=== PATIENT | female | born 1930 | race Caucasian/White ===

== ENCOUNTER → 2017-11-01 | Outpatient (CLI) | payer MEDICARE | END | disposition home or self-care (01) | LOC: KCIC MRI 10:01 | DX: S83.242A Other tear of medial meniscus, current injury, left knee, initial encounter (principal); M17.12 Unilateral primary osteoarthritis, left knee; M94.262 Chondromalacia, left knee; X58.XXXA Exposure to other specified factors, initial encounter; Y93.89 Activity, other specified; Y92.89 Other specified places as the place of occurrence of the external cause; Y99.8 Other external cause status | CPT/HCPCS: 73721 ==

== ENCOUNTER 2018-01-18 20:56 | Inpatient (IN) | payer MEDICARE ==
[2018-01-18 21:34] LABS: ADD MAN DIFF? NO
[2018-01-18 21:36] LABS: BASO # 0.1 x10^3/uL (0.0-0.2); BASO % 1 % (0-3); EOS # 0.1 x10^3/uL (0.0-0.7); EOS % 1 % (0-3); HEMATOCRIT 33.1 % (36.0-47.0); LYMPH # 0.9 x10^3/uL (1.0-4.8); LYMPH % 9 % (24-48); MEAN CORPUSCULAR HEMOGLOBIN 31 pg (25-35); MEAN CORPUSCULAR HGB CONC 33 g/dL (31-37); MEAN CORPUSCULAR VOLUME 93 fL (79-100); MONO # 0.8 x10^3/uL (0.0-1.1); MONO % 8 % (0-9); NEUT # 8.5 x10^3uL (1.8-7.7); NEUT % 82 % (31-73); PLATELET COUNT 218 x10^3/uL (140-400); RED BLOOD COUNT 3.55 x10^6/uL (3.50-5.40); RED CELL DISTRIBUTION WIDTH 12.9 % (11.5-14.5); WHITE BLOOD COUNT 10.3 x10^3/uL (4.0-11.0)
[2018-01-18 21:51] LABS: BILIRUBIN,URINE NEGATIVE (NEG); CLARITY,URINE CLEAR; COLOR,URINE YELLOW; GLUCOSE,URINE NEGATIVE (NEG); NITRITE,URINE NEGATIVE (NEG); PROTEIN,URINE NEGATIVE (NEG-TRACE); UROBILINOGEN,URINE 0.2 mg/dL (0.2 mg/dL)
[2018-01-18 22:03] LABS: BACTERIA,URINE 0 /HPF (0-FEW); HYALINE CASTS, URINE MODERATE /HPF; RBC,URINE OCC /HPF (0-2); SQUAMOUS EPITHELIAL CELL,UR FEW /LPF; WBC,URINE OCC /HPF (0-4)
[2018-01-18 22:27] LABS: ANION GAP 11 (6-14); BLOOD UREA NITROGEN 23 mg/dL (7-20); BUN/CREATININE RATIO 29 (6-20); CALCIUM 9.3 mg/dL (8.5-10.1); CARBON DIOXIDE 26 mmol/L (21-32); CHLORIDE 97 mmol/L (98-107); CREATININE 0.8 mg/dL (0.6-1.0); GLUCOSE 115 mg/dL (70-99); POTASSIUM 3.9 mmol/L (3.5-5.1); SODIUM 134 mmol/L (136-145)
[2018-01-18 22:30] LABS: ALBUMIN 3.6 g/dL (3.4-5.0); ALBUMIN/GLOBULIN RATIO 1.3 (1.0-1.7); ALK PHOS 58 U/L (46-116); ALT (SGPT) 25 U/L (14-59); AST (SGOT) 30 U/L (15-37); CREATINE KINASE 114 U/L (26-192); TOTAL BILIRUBIN 0.3 mg/dL (0.2-1.0); TOTAL PROTEIN 6.4 g/dL (6.4-8.2)
[2018-01-18] MEDS: LIDOCAINE 1% PF 30 ML VIAL. INJ (22:30)
[2018-01-18] MEDS ORDERED: LIDOCAINE 1% Multi-Dose 20 ML VIAL. INJ (22:30)
[2018-01-19] MEDS ORDERED: fentaNYL PF VIAL 100 MCG/2 ML VIAL IV (00:15)
[2018-01-19] MEDS ORDERED: ONDANSETRON PF 4 MG/2 ML VIAL. IV (00:15)
[2018-01-19] MEDS: ASPIRIN CHEWABLE 81 MG TABLET. PO (00:48)
[2018-01-19 06:46] LABS: TROPONINI 0.088 ng/mL (0.000-0.055)
[2018-01-19 09:07] LABS: ANION GAP 10 (6-14); BLOOD UREA NITROGEN 15 mg/dL (7-20); CALCIUM 8.8 mg/dL (8.5-10.1); CARBON DIOXIDE 26 mmol/L (21-32); CHLORIDE 103 mmol/L (98-107); CHOLESTEROL 140 mg/dL (0-200); CREATININE 0.5 mg/dL (0.6-1.0); GLUCOSE 86 mg/dL (70-99); HDLC 57 mg/dL (40-60); LDLC 75 mg/dL (0-100); MAGNESIUM 2.2 mg/dL (1.8-2.4); NON-HDL CHOLESTEROL 83 mg/dL (0-129); POTASSIUM 3.9 mmol/L (3.5-5.1); SODIUM 139 mmol/L (136-145); TRIGLYCERIDES 39 mg/dL (0-150); VLDLC 8 mg/dL (0-40)
[2018-01-19 09:11] LABS: CHOLESTEROL/HDL RATIO 2.5
[2018-01-19 09:15] LABS: THYROID STIM HORMONE (TSH) 1.242 uIU/mL (0.358-3.74)
[2018-01-19] MEDS: LEVOTHYROXINE 75 MCG TABLET PO (12:00)
[2018-01-19] MEDS: CALCIUM CARB/VIT D3 500/200 TABLET. PO (21:00)
[2018-01-20 03:32] LABS: ADD MAN DIFF? NO
[2018-01-20 04:22] LABS: BASO # 0.1 x10^3/uL (0.0-0.2); BASO % 1 % (0-3); EOS # 0.1 x10^3/uL (0.0-0.7); EOS % 2 % (0-3); LYMPH # 1.8 x10^3/uL (1.0-4.8); LYMPH % 32 % (24-48); MEAN CORPUSCULAR HEMOGLOBIN 31 pg (25-35); MEAN CORPUSCULAR HGB CONC 34 g/dL (31-37); MEAN CORPUSCULAR VOLUME 93 fL (79-100); MONO # 0.7 x10^3/uL (0.0-1.1); MONO % 12 % (0-9); NEUT % 54 % (31-73); PLATELET COUNT 197 x10^3/uL (140-400); RED BLOOD COUNT 3.22 x10^6/uL (3.50-5.40); RED CELL DISTRIBUTION WIDTH 13.1 % (11.5-14.5); WHITE BLOOD COUNT 5.6 x10^3/uL (4.0-11.0)
[2018-01-20 04:44] LABS: ANION GAP 8 (6-14); BLOOD UREA NITROGEN 19 mg/dL (7-20); CALCIUM 8.5 mg/dL (8.5-10.1); CARBON DIOXIDE 26 mmol/L (21-32); CHLORIDE 107 mmol/L (98-107); CREATININE 0.6 mg/dL (0.6-1.0); GFR 94.8; GLUCOSE 85 mg/dL (70-99); POTASSIUM 4.3 mmol/L (3.5-5.1); SODIUM 141 mmol/L (136-145)
[2018-01-20] MEDS: ACETAMINOPHEN 325 MG TABLET. PO ×2 (08:46→10:45)
[2018-01-20] MEDS: CALCIUM CARB/VIT D3 500/200 TABLET. PO ×2 (10:55→20:16)
[2018-01-20] MEDS: LEVOTHYROXINE 75 MCG TABLET PO (10:55)
[2018-01-21 04:40] LABS: ADD MAN DIFF? NO
[2018-01-21 05:35] LABS: BASO % 1 % (0-3); EOS # 0.2 x10^3/uL (0.0-0.7); EOS % 3 % (0-3); HEMATOCRIT 31.2 % (36.0-47.0); HEMOGLOBIN 10.3 g/dL (12.0-15.5); LYMPH # 1.4 x10^3/uL (1.0-4.8); LYMPH % 28 % (24-48); MEAN CORPUSCULAR HEMOGLOBIN 31 pg (25-35); MEAN CORPUSCULAR HGB CONC 33 g/dL (31-37); MEAN CORPUSCULAR VOLUME 94 fL (79-100); MONO # 0.6 x10^3/uL (0.0-1.1); MONO % 11 % (0-9); NEUT # 2.9 x10^3uL (1.8-7.7); NEUT % 57 % (31-73); PLATELET COUNT 195 x10^3/uL (140-400); RED BLOOD COUNT 3.33 x10^6/uL (3.50-5.40); WHITE BLOOD COUNT 5.1 x10^3/uL (4.0-11.0)
[2018-01-21 05:59] LABS: ANION GAP 7 (6-14); BLOOD UREA NITROGEN 18 mg/dL (7-20); CALCIUM 9.1 mg/dL (8.5-10.1); CARBON DIOXIDE 27 mmol/L (21-32); CHLORIDE 105 mmol/L (98-107); CREATININE 0.6 mg/dL (0.6-1.0); GFR 94.8; GLUCOSE 83 mg/dL (70-99); POTASSIUM 3.6 mmol/L (3.5-5.1); SODIUM 139 mmol/L (136-145)
[2018-01-21] MEDS: CALCIUM CARB/VIT D3 500/200 TABLET. PO ×2 (08:57→21:09)
[2018-01-21] MEDS: LEVOTHYROXINE 75 MCG TABLET PO (08:57)
[2018-01-21] MEDS: ACETAMINOPHEN 325 MG TABLET. PO ×2 (08:57→11:30)
[2018-01-22] MEDS: LEVOTHYROXINE 75 MCG TABLET PO (08:02)
[2018-01-22] MEDS: CALCIUM CARB/VIT D3 500/200 TABLET. PO (08:02)
[2018-01-22] MEDS: ACETAMINOPHEN 325 MG TABLET. PO (08:02)
[2018-01-22] MEDS: POTASSIUM CHLORIDE 20 MEQ TABLET.ER. PO (10:03)
== END 2018-01-22 10:40 | DRG 158 ==
LOC: 2 NORTH 01-19 00:16 → ER 20:56
PROC: 0CQ0XZZ Repair Upper Lip, External Approach (ICD-10-PCS; principal; 2018-01-19)
DX: S01.511A Laceration without foreign body of lip, initial encounter (principal); Z68.1 Body mass index [BMI] 19.9 or less, adult; M06.9 Rheumatoid arthritis, unspecified; C44.91 Basal cell carcinoma of skin, unspecified; S09.93XA Unspecified injury of face, initial encounter; W01.0XXA Fall on same level from slipping, tripping and stumbling without subsequent striking against object, initial encounter; E03.9 Hypothyroidism, unspecified; M81.0 Age-related osteoporosis without current pathological fracture; R63.6 Underweight; Z82.49 Family history of ischemic heart disease and other diseases of the circulatory system; Z85.828 Personal history of other malignant neoplasm of skin; M19.90 Unspecified osteoarthritis, unspecified site; Z88.0 Allergy status to penicillin; Z88.8 Allergy status to other drugs, medicaments and biological substances; Z91.041 Radiographic dye allergy status; Z60.2 Problems related to living alone; Y93.9 Activity, unspecified; Y92.89 Other specified places as the place of occurrence of the external cause; Y99.8 Other external cause status
CPT/HCPCS: 12011; 36415; 51702; 70450; 70486; 72125; 73030; 80048; 80053; 80061; 81001; 82550; 83735; 84443; 84484; 85025; 93005; 93306; 97116-GP; 97161-GP; 97166-GO; 97530-GO; 97530-GP; 97535-GO; 99285-25

== ENCOUNTER 2020-01-10 22:26 | Inpatient (IN) | payer MEDICARE ==
[~2020-01-10] VITALS: Ht 149.9 cm; Wt 43.5 kg
[~2020-01-10 22:26] MED LIST: ACET325T9 PO; ACET500T68 PO; CALC-95 PO; FOLI0.8T3 PO; GUAR1PAC2 PO; LEVO75TA PO; PRED20TA PO; PSYL0.5215 PO
[2020-01-10] MEDS ORDERED: IV NORMAL SALINE 500ML BAG 500 ML IV ONE (23:15)
[2020-01-10 23:54] LABS: BASO # 0.1 x10^3/uL (0.0-0.2); BASO % 0 % (0-3); EOS % 0 % (0-3); LYMPH # 0.8 x10^3/uL (1.0-4.8); LYMPH % 5 % (24-48); MEAN CORPUSCULAR HEMOGLOBIN 31 pg (25-35); MEAN CORPUSCULAR HGB CONC 33 g/dL (31-37); MEAN CORPUSCULAR VOLUME 92 fL (79-100); MONO # 1.5 x10^3/uL (0.0-1.1); MONO % 9 % (0-9); NEUT # 13.8 x10^3/uL (1.8-7.7); NEUT % 86 % (31-73); PLATELET COUNT 337 x10^3/uL (140-400); RED CELL DISTRIBUTION WIDTH 12.6 % (11.5-14.5); WHITE BLOOD COUNT 16.1 x10^3/uL (4.0-11.0)
[2020-01-11 00:07] LABS: CALCIUM 11.2 mg/dL (8.5-10.1); CREATININE 0.8 mg/dL (0.6-1.0); GFR 67.7; POTASSIUM 4.2 mmol/L (3.5-5.1)
[2020-01-11 00:13] LABS: ALBUMIN 3.6 g/dL (3.4-5.0); ALBUMIN/GLOBULIN RATIO 0.9 (1.0-1.7); MAGNESIUM 2.7 mg/dL (1.8-2.4); TOTAL BILIRUBIN 0.5 mg/dL (0.2-1.0); TOTAL PROTEIN 7.7 g/dL (6.4-8.2)
[2020-01-11 00:27] LABS: % BANDS 7 % (0-9); % LYMPHS 3 % (24-48); % MONOS 10 % (0-10); % SEGS 80 % (35-66); PLT ESTIMATE ADEQUATE (ADEQUATE); TOXIC VACUOLATION SLIGHT
--- NOTE | 2020-01-11 00:31 | RAD ---
CT abdomen and pelvis without contrast: Reason for examination: Low abdominal pain and diarrhea. Helical images were obtained through the abdomen and pelvis with no intravenous or oral contrast administered. Reconstruction was performed in sagittal and coronal planes. Exposure: One or more of the following individualized dose reduction techniques were utilized for this examination: 1. Automated exposure control 2. Adjustment of the mA and/or kV according to patient size 3. Use of iterative reconstruction technique. The lung bases show some infiltrates or atelectasis posteriorly in the costophrenic angles. There are small bilateral pleural effusions. The heart size is normal with no pericardial effusion. No abnormality seen at the liver, gallbladder, spleen, adrenal glands or pancreas. There is a small hiatal hernia. The stomach shows no abnormal wall thickening or obstruction. The colon shows presence of diverticulosis without diverticulitis. There is a large amount of fecal material in the colon. The appendix is not identified. The small intestinal tract shows no abnormal dilatation or evidence of obstruction. The kidneys show no renal masses, renal calculi, hydronephrosis or evidence of obstructive uropathy. No abnormality seen at the bladder or vaginal cuff. No free fluid or free air seen in the abdomen or pelvis. There are severe degenerative changes in the thoracolumbar spine with a grade 1 anterolisthesis of L5 on S1. There also appears to be a mild compression deformity at the T11 vertebral body. IMPRESSION: Bibasal infiltrates or atelectasis posteriorly at the costophrenic angles bilaterally. Small bilateral pleural effusions. Small hiatal hernia. Diverticulosis without evidence of diverticulitis. Large amount of fecal material in the colon. Severe degenerative spondylosis with a grade 1 anterolisthesis of L5 on S1. Mild compression deformity at the T11 vertebral body. Electronically signed by: Jemma Oliver MD (01/11/2020 12:28 AM) [facility]
[2020-01-11] MEDS ORDERED: CEFEPIME HCL IV Push 2 GM VIAL. IVP ONE (01:15)
--- NOTE | 2020-01-11 01:39 | PHYS DOC ---
Past Medical History Past Medical History: Hypothyroid, Other Additional Past Medical Histor: osteoporosis, basal cell carcinoma, Past Surgical History: , Other Additional Past Surgical Histo: skin cancer removal, fluid drainage from ear Smoking Status: Never Smoker Alcohol Use: None Drug Use: None Adult General Chief Complaint Chief Complaint: DIARRHEA HPI HPI Patient is a 89 year old female, accompanied by her son and daughter, who presents to the emergency department with complaints of diarrhea that began this evening. Patient son reports that patient has had at least 9 episodes of foul smelling liquid stool today. Patient's daughter reports that the patient had a history of a C. difficile infection about 10 years ago. Patient's daughter states that her mother was seen at her primary care doctor's office 10 days ago for a sudden onset of urinary incontinence and confusion. She was diagnosed with a urinary tract infection and was prescribed Macrobid for that infection. Patient finished taking the medication yesterday. Patient's daughter says that ever since the onset of the incontinence her mother has not been acting right. Patient's daughter states that her mother lives at home in an apartment by herself, she denies any recent contact with any ill persons, or recent travel. 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 The patient denied any complaints of pain on arrival, however her lower abdomen was tender to touch. Review of Systems Review of Systems Constitutional: Denies fever or chills [] Eyes: Denies redness, or eye pain [] HENT: Denies nasal congestion or sore throat [] Respiratory: Denies cough or shortness of breath [] Cardiovascular: No additional information not addressed in HPI [] GI: Denies nausea, vomiting, or bloody stools; see HPI : Denies hematuria; see HPI Musculoskeletal: Denies back pain or joint pain [] Integument: Denies rash or skin lesions [] Neurologic: Denies headache, reports generalized weakness Complete systems were reviewed and found to be within normal limits, except as documented in this note. Current Medications Current Medications Current Medications Medications (Trade) Dose Ordered Sig/Fam Start Time Stop Time Status Last Admin Dose Admin Cefepime HCl (Maxipime) 2 gm 1X ONCE 01/11/20 01:15 01/11/20 01:16 DC Levofloxacin/ Dextrose 150 ml @ 100 mls/hr 1X ONCE 01/11/20 01:00 01/11/20 02:29 Sodium Chloride 500 ml @ 500 mls/hr 1X ONCE 01/10/20 23:15 01/11/20 00:14 DC 01/11/20 00:11 500 MLS/HR Allergies Allergies Allergies Coded Allergies Type Severity Reaction Last Updated Verified Iodinated Contrast Media Allergy Intermediate 06/01/14 Yes Penicillins Allergy Intermediate 06/01/14 Yes codeine Allergy Intermediate 06/01/14 Yes iodine Allergy Intermediate 06/01/14 Yes Physical Exam Physical Exam Constitutional: Well developed, well nourished, no acute distress, frail appearance, hard of hearing HENT: Normocephalic, atraumatic, bilateral external ears normal, oropharynx dry, no oral exudates, nose normal. [] Eyes: PERRLA, EOMI, conjunctiva normal, no discharge. [] Neck: Normal range of motion, no stridor. [] Cardiovascular:Heart rate regular rhythm, no murmur [] Lungs & Thorax: Bilateral breath sounds clear to auscultation in upper lobes, diminished bilateral lower lobes, no retractions, no wheezing [] Abdomen: Bowel sounds normal, soft, LLQ and RLQ TTP, no rebound tenderness, no masses, no pulsatile masses. [] Skin: Warm, dry, no erythema, no rash. [] Extremities: No cyanosis, ROM intact, no edema. [] Neurologic: Alert and oriented X 2, no focal deficits noted. [] Psychologic: Affect normal, judgement normal, mood normal. [] Current Patient Data Vital Signs Vital Signs Date Time Temp Pulse Resp B/P (MAP) Pulse Ox O2 Delivery O2 Flow Rate FiO2 01/11/20 00:00 95 20 153/71 (98) Room Air 01/10/20 22:40 98.3 96 98.3 Lab Values Laboratory Tests Test 01/10/20 23:40 White Blood Count 16.1 x10^3/uL (4.0-11.0) H Red Blood Count 3.90 x10^6/uL (3.50-5.40) Hemoglobin 12.0 g/dL (12.0-15.5) Hematocrit 36.0 % (36.0-47.0) Mean Corpuscular Volume 92 fL (79-100) Mean Corpuscular Hemoglobin 31 pg (25-35) Mean Corpuscular Hemoglobin Concent 33 g/dL (31-37) Red Cell Distribution Width 12.6 % (11.5-14.5) Platelet Count 337 x10^3/uL (140-400) Neutrophils (%) (Auto) 86 % (31-73) H Lymphocytes (%) (Auto) 5 % (24-48) L Monocytes (%) (Auto) 9 % (0-9) Eosinophils (%) (Auto) 0 % (0-3) Basophils (%) (Auto) 0 % (0-3) Neutrophils # (Auto) 13.8 x10^3/uL (1.8-7.7) H Lymphocytes # (Auto) 0.8 x10^3/uL (1.0-4.8) L Monocytes # (Auto) 1.5 x10^3/uL (0.0-1.1) H Eosinophils # (Auto) 0.0 x10^3/uL (0.0-0.7) Basophils # (Auto) 0.1 x10^3/uL (0.0-0.2) Segmented Neutrophils % 80 % (35-66) H Band Neutrophils % 7 % (0-9) Lymphocytes % 3 % (24-48) L Monocytes % 10 % (0-10) Toxic Vacuolation Slight Platelet Estimate Adequate (ADEQUATE) Sodium Level 136 mmol/L (136-145) Potassium Level 4.2 mmol/L (3.5-5.1) Chloride Level 97 mmol/L (98-107) L Carbon Dioxide Level 27 mmol/L (21-32) Anion Gap 12 (6-14) Blood Urea Nitrogen 29 mg/dL (7-20) H Creatinine 0.8 mg/dL (0.6-1.0) Estimated GFR (Cockcroft-Gault) 67.7 BUN/Creatinine Ratio 36 (6-20) H Glucose Level 131 mg/dL (70-99) H Lactic Acid Level 1.5 mmol/L (0.4-2.0) Calcium Level 11.2 mg/dL (8.5-10.1) H Magnesium Level 2.7 mg/dL (1.8-2.4) H Total Bilirubin 0.5 mg/dL (0.2-1.0) Aspartate Amino Transferase (AST) 35 U/L (15-37) Alanine Aminotransferase (ALT) 30 U/L (14-59) Alkaline Phosphatase 82 U/L (46-116) Total Protein 7.7 g/dL (6.4-8.2) Albumin 3.6 g/dL (3.4-5.0) Albumin/Globulin Ratio 0.9 (1.0-1.7) L Lipase 57 U/L (73-393) L Laboratory Tests 01/10/20 23:40 Laboratory Tests 01/10/20 23:40 EKG EKG [] Radiology/Procedures Radiology/Procedures PROCEDURE: CT ABDOMEN PELVIS WO CONTRAST CT abdomen and pelvis without contrast: Reason for examination: Low abdominal pain and diarrhea. Helical images were obtained through the abdomen and pelvis with no intravenous or oral contrast administered. Reconstruction was performed in sagittal and coronal planes. Exposure: One or more of the following individualized dose reduction techniques were utilized for this examination: 1. Automated exposure control 2. Adjustment of the mA and/or kV according to patient size 3. Use of iterative reconstruction technique. The lung bases show some infiltrates or atelectasis posteriorly in the costophrenic angles. There are small bilateral pleural effusions. The heart size is normal with no pericardial effusion. No abnormality seen at the liver, gallbladder, spleen, adrenal glands or pancreas. There is a small hiatal hernia. The stomach shows no abnormal wall thickening or obstruction. The colon shows presence of diverticulosis without diverticulitis. There is a large amount of fecal material in the colon. The appendix is not identified. The small intestinal tract shows no abnormal dilatation or evidence of obstruction. The kidneys show no renal masses, renal calculi, hydronephrosis or evidence of obstructive uropathy. No abnormality seen at the bladder or vaginal cuff. No free fluid or free air seen in the abdomen or pelvis. There are severe degenerative changes in the thoracolumbar spine with a grade 1 anterolisthesis of L5 on S1. There also appears to be a mild compression deformity at the T11 vertebral body. IMPRESSION: Bibasal infiltrates or atelectasis posteriorly at the costophrenic angles bilaterally. Small bilateral pleural effusions. Small hiatal hernia. Diverticulosis without evidence of diverticulitis. Large amount of fecal material in the colon. Severe degenerative spondylosis with a grade 1 anterolisthesis of L5 on S1. Mild compression deformity at the T11 vertebral body. [] Course & Med Decision Making Course & Med Decision Making Pertinent Labs and Imaging studies reviewed. (See chart for details) Patient is a 89-year-old female who presented to the emergency room with acute onset of diarrhea and ongoing confusion and urinary incontinence that began 10 days ago. Her CBC revealed a white blood cell count of 16.1 with 7 bands and 80 segs; CMP revealed a chloride of 97, BUN of 29, glucose of 131, lactic acid of 1.5, calcium of 11.2, magnesium of 2.7, lipase was 57 otherwise unremarkable, urine and stool are pending CT abdomen pelvis revealed bibasilar infiltrates or atelectasis at the costophrenic angles with small bilateral pleural effusions and a large amount of fecal material in the colon. Will treat patient for pneumonia with 750 mg of Levaquin IV and 2 g of cefepime IV. Patient was given a 500 bolus of normal saline in the emergency department on arrival. 0120 Patient to be admitted to the hospitalist service for diarrhea and bilateral CAP, Dr. Castellanos notified of admission will inform Dr. Calhoun in the morning. Patient's vital signs stable. Patient remains afebrile, appears nontoxic, respirations even and unlabored. Patient will be admitted to the med/tele floor. Patient's case and plan of care also discussed with Dr. Castellanos [] Hayden Disclaimer Hayden Disclaimer This electronic medical record was generated, in whole or in part, using a voice recognition dictation system. Departure Departure Impression: Primary Impression: Diarrhea Additional Impression: CAP (community acquired pneumonia) Disposition: 09 ADMITTED INPATIENT Admitting Physician: AURORA (Unique) Condition: STABLE Referrals: LUIS CARLOS CARLIN APRN (PCP) Problem Qualifiers Primary Impression: Diarrhea Diarrhea type: presumed infectious Qualified Codes: R19.7 - Diarrhea, unspecified Additional Impression: CAP (community acquired pneumonia) Laterality: unspecified laterality Qualified Codes: J18.9 - Pneumonia, unspecified organism YAZ FLORES APRN Jan 11, 2020 01:39
[2020-01-11] MEDS ORDERED: IV NORMAL SALINE 1000ML BAG 1,000 ML IV ONE (01:45)
[2020-01-11 03:33] LABS: BILIRUBIN,URINE NEGATIVE (NEG); CLARITY,URINE CLEAR; COLOR,URINE YELLOW; NITRITE,URINE NEGATIVE (NEG); PROTEIN,URINE NEGATIVE (NEG-TRACE)
[2020-01-11 03:40] LABS: FECAL OB PT POSITIVE (NEG)
[2020-01-11 03:49] LABS: BACTERIA,URINE FEW /HPF (0-FEW); HYALINE CASTS, URINE OCCASIONAL /HPF; SQUAMOUS EPITHELIAL CELL,UR FEW /LPF
[2020-01-11 03:54] VITALS: BP 158/70
[2020-01-11 07:54] VITALS: BP 114/55
[2020-01-11] MEDS: CALCIUM CARB/VIT D3 500/200 TABLET. PO SCH ×2 (10:15→21:41)
[2020-01-11] MEDS: LEVOTHYROXINE 75 MCG TABLET PO SCH (10:15)
[2020-01-11 11:00] VITALS: BP 102/48
--- NOTE | 2020-01-11 11:01 | PDOC1 ---
History and Physical Date of Admission Date of Admission DATE: 01/11/20 TIME: 11:01 Identification/Chief Complaint Chief Complaint SEEN IN ER , 89 year old female, accompanied by her son and daughter, who presents to the emergency department with complaints of diarrhea that began 01/09 . Patient son reports that patient has had at least 9 episodes of foul smelling liquid stool Patient's daughter reports that the patient had a history of a C. difficile infection about 10 years ago. Patient's daughter states that her mother was seen at her primary care doctor's office 10 days ago for a sudden onset of urinary incontinence and confusion. //was diagnosed with a urinary tract inf ection and was prescribed Macrobid for that infection. Patient finished taking the medication 01/08 . Patient's daughter NOTED her mother has not been acting right. Patient's daughter NOTES lives at home in an apartment by herself, //denies any recent c ontact with any ill persons, or recent travel. Past Medical History Past Medical History Past Medical History Past Medical History: Hypothyroid, Other Additional Past Medical Histor: osteoporosis, basal cell carcinoma, Past Surgical History: , Other Additional Past Surgical Histo: skin cancer removal, fluid drainage from ear Smoking Status: Never Smoker Alcohol Use: None Drug Use: None FHX HTN Cardiovascular: No pertinent hx Pulmonary: Other CENTRAL NERVOUS SYSTEM: Other GI: No pertinent hx Heme/Onc: No pertinent hx Hepatobiliary: No pertinent hx Psych: No pertinent hx Musculoskeletal: Osteoarthritis Rheumatologic: Rheumatoid arthritis Renal/: No pertinent hx Endocrine: Hypothyroidism Past Surgical History Past Surgical History: Other Family History Family History: Hypertension Social History Smoke: No ALCOHOL: none Drugs: None Current Medications Current Medications Current Medications Sodium Chloride 500 ml @ 500 mls/hr 1X ONCE IV Last administered on 01/11/20at 00:11; Start 01/10/20 at 23:15; Stop 01/11/20 at 00:14; Status DC Levofloxacin/ Dextrose 150 ml @ 100 mls/hr 1X ONCE IV Last administered on 01/11/20at 01:57; Start 01/11/20 at 01:00; Stop 01/11/20 at 02:29; Status DC Cefepime HCl (Maxipime) 2 gm 1X ONCE IVP Last administered on 01/11/20at 01:56; Start 01/11/20 at 01:15; Stop 01/11/20 at 01:16; Status DC Sodium Chloride 1,000 ml @ 125 mls/hr 1X ONCE IV Last administered on 01/11/20at 02:07; Start 01/11/20 at 01:45; Stop 01/11/20 at 09:44; Status DC Acetaminophen (Tylenol) 650 mg BIDACBL PO ; Start 01/11/20 at 11:30 Calcium/Vitamin D (Oscal D 500mg/ 200uts) 1 tab BID PO Last administered on 01/11/20at 10:15; Start 01/11/20 at 09:00 Levothyroxine Sodium (Synthroid) 75 mcg DAILY06 PO Last administered on 01/11/20at 10:15; Start 01/11/20 at 10:30 Lactobacillus Rhamnosus (Culturelle) 1 cap BID PO ; Start 01/11/20 at 21:00; Status UNV Active Scripts Active Reported Tylenol (Acetaminophen) 325 Mg Tablet 2 Tab PO BIDACBL Oyster Shell Calcium +D Tablet (Calcium Carbonate/Vitamin D3) 1 Each Tablet 1 Each PO BID Synthroid (Levothyroxine Sodium) 75 Mcg Tablet 1 Tab PO DAILY Allergies Allergies: Coded Allergies: Iodinated Contrast Media (Verified Allergy, Intermediate, 06/01/14) Penicillins (Verified Allergy, Intermediate, 06/01/14) codeine (Verified Allergy, Intermediate, 06/01/14) iodine (Verified Allergy, Intermediate, 06/01/14) ROS Review of System Review of Systems Review of Systems Constitutional: Denies fever or chills [] Eyes: Denies redness, or eye pain [] HENT: Denies nasal congestion or sore throat [] Respiratory: Denies cough or shortness of breath [] Cardiovascular: No additional information not addressed in HPI [] GI: Denies nausea, vomiting, or bloody stools; see HPI : Denies hematuria; see HPI Musculoskeletal: Denies back pain or joint pain [] Integument: Denies rash or skin lesions [] Neurologic: Denies headache, reports generalized weakness 14 PT systems were reviewed and found to be within normal limits, except as documented. PSYCHOLOGICAL ROS: YES: Disorientation Respiratory: YES: Cough Gastrointestinal: Yes Diarrhea Musculoskeletal: Yes Joint Stiffness Neurological: Yes Confusion Physical Exam Physical Exam Physical Exam Physical Exam Constitutional: Well developed, well nourished, no acute distress, frail appearance, hard of hearing HENT: Normocephalic, atraumatic, bilateral external ears normal, oropharynx dry, no oral exudates, nose normal. [] Eyes: PERRLA, EOMI, conjunctiva normal, no discharge. [] Neck: Normal range of motion, no stridor. [] Cardiovascular:Heart rate regular rhythm, no murmur [] Lungs & Thorax: Bilateral breath sounds clear to auscultation in upper lobes, diminished bilateral lower lobes, no retractions, no wheezing [] Abdomen: Bowel sounds normal, soft, LLQ and RLQ TTP, no rebound tenderness, no masses, no pulsatile masses. [] Skin: Warm, dry, no erythema, no rash. [] Extremities: No cyanosis, ROM intact, no edema. [] Neurologic: Alert and oriented X 2, no focal deficits noted. [] Psychologic: Affect normal, judgement normal, mood normal. [] General: Alert, Cooperative, No acute distress HEENT: Atraumatic, EOMI Heart: RRR Breasts: Not examined Abdomen: Normal bowel sounds, Soft Rectal Exam: not examined PELVIC: Examination not indicated Extremities: No cyanosis Neuro: Cranial nerves 3-12 NL Vitals Vitals Vital Signs Date Time Temp Pulse Resp B/P (MAP) Pulse Ox O2 Delivery O2 Flow Rate FiO2 01/11/20 07:54 99.0 102 16 114/55 (74) 93 Room Air 99.0 Labs Labs Laboratory Tests Test 01/10/20 23:40 01/11/20 03:01 01/11/20 03:10 White Blood Count 16.1 x10^3/uL (4.0-11.0) Red Blood Count 3.90 x10^6/uL (3.50-5.40) Hemoglobin 12.0 g/dL (12.0-15.5) Hematocrit 36.0 % (36.0-47.0) Mean Corpuscular Volume 92 fL (79-100) Mean Corpuscular Hemoglobin 31 pg (25-35) Mean Corpuscular Hemoglobin Concent 33 g/dL (31-37) Red Cell Distribution Width 12.6 % (11.5-14.5) Platelet Count 337 x10^3/uL (140-400) Neutrophils (%) (Auto) 86 % (31-73) Lymphocytes (%) (Auto) 5 % (24-48) Monocytes (%) (Auto) 9 % (0-9) Eosinophils (%) (Auto) 0 % (0-3) Basophils (%) (Auto) 0 % (0-3) Neutrophils # (Auto) 13.8 x10^3/uL (1.8-7.7) Lymphocytes # (Auto) 0.8 x10^3/uL (1.0-4.8) Monocytes # (Auto) 1.5 x10^3/uL (0.0-1.1) Eosinophils # (Auto) 0.0 x10^3/uL (0.0-0.7) Basophils # (Auto) 0.1 x10^3/uL (0.0-0.2) Segmented Neutrophils % 80 % (35-66) Band Neutrophils % 7 % (0-9) Lymphocytes % 3 % (24-48) Monocytes % 10 % (0-10) Toxic Vacuolation Slight Platelet Estimate Adequate (ADEQUATE) Sodium Level 136 mmol/L (136-145) Potassium Level 4.2 mmol/L (3.5-5.1) Chloride Level 97 mmol/L (98-107) Carbon Dioxide Level 27 mmol/L (21-32) Anion Gap 12 (6-14) Blood Urea Nitrogen 29 mg/dL (7-20) Creatinine 0.8 mg/dL (0.6-1.0) Estimated GFR (Cockcroft-Gault) 67.7 BUN/Creatinine Ratio 36 (6-20) Glucose Level 131 mg/dL (70-99) Lactic Acid Level 1.5 mmol/L (0.4-2.0) Calcium Level 11.2 mg/dL (8.5-10.1) Magnesium Level 2.7 mg/dL (1.8-2.4) Total Bilirubin 0.5 mg/dL (0.2-1.0) Aspartate Amino Transf (AST/SGOT) 35 U/L (15-37) Alanine Aminotransferase (ALT/SGPT) 30 U/L (14-59) Alkaline Phosphatase 82 U/L (46-116) Total Protein 7.7 g/dL (6.4-8.2) Albumin 3.6 g/dL (3.4-5.0) Albumin/Globulin Ratio 0.9 (1.0-1.7) Lipase 57 U/L (73-393) Stool Occult Blood Positive (NEG) Urine Collection Type U cath Urine Color Yellow Urine Clarity Clear Urine pH 8.0 (<5.0-8.0) Urine Specific [place] 1.025 (1.000-1.030) Urine Protein Negative mg/dL (NEG-TRACE) Urine Glucose (UA) Negative mg/dL (NEG) Urine Ketones (Stick) 15 mg/dL (NEG) Urine Blood Negative (NEG) Urine Nitrite Negative (NEG) Urine Bilirubin Negative (NEG) Urine Urobilinogen Dipstick 1.0 mg/dL (0.2 mg/dL) Urine Leukocyte Esterase Negative (NEG) Urine RBC 11-20 /HPF (0-2) Urine WBC 1-4 /HPF (0-4) Urine Squamous Epithelial Cells Few /LPF Urine Bacteria Few /HPF (0-FEW) Urine Hyaline Casts Occasional /HPF Urine Mucus Slight /LPF Laboratory Tests Test 01/10/20 23:40 01/11/20 03:01 01/11/20 03:10 White Blood Count 16.1 x10^3/uL (4.0-11.0) Red Blood Count 3.90 x10^6/uL (3.50-5.40) Hemoglobin 12.0 g/dL (12.0-15.5) Hematocrit 36.0 % (36.0-47.0) Mean Corpuscular Volume 92 fL (79-100) Mean Corpuscular Hemoglobin 31 pg (25-35) Mean Corpuscular Hemoglobin Concent 33 g/dL (31-37) Red Cell Distribution Width 12.6 % (11.5-14.5) Platelet Count 337 x10^3/uL (140-400) Neutrophils (%) (Auto) 86 % (31-73) Lymphocytes (%) (Auto) 5 % (24-48) Monocytes (%) (Auto) 9 % (0-9) Eosinophils (%) (Auto) 0 % (0-3) Basophils (%) (Auto) 0 % (0-3) Neutrophils # (Auto) 13.8 x10^3/uL (1.8-7.7) Lymphocytes # (Auto) 0.8 x10^3/uL (1.0-4.8) Monocytes # (Auto) 1.5 x10^3/uL (0.0-1.1) Eosinophils # (Auto) 0.0 x10^3/uL (0.0-0.7) Basophils # (Auto) 0.1 x10^3/uL (0.0-0.2) Segmented Neutrophils % 80 % (35-66) Band Neutrophils % 7 % (0-9) Lymphocytes % 3 % (24-48) Monocytes % 10 % (0-10) Toxic Vacuolation Slight Platelet Estimate Adequate (ADEQUATE) Sodium Level 136 mmol/L (136-145) Potassium Level 4.2 mmol/L (3.5-5.1) Chloride Level 97 mmol/L (98-107) Carbon Dioxide Level 27 mmol/L (21-32) Anion Gap 12 (6-14) Blood Urea Nitrogen 29 mg/dL (7-20) Creatinine 0.8 mg/dL (0.6-1.0) Estimated GFR (Cockcroft-Gault) 67.7 BUN/Creatinine Ratio 36 (6-20) Glucose Level 131 mg/dL (70-99) Lactic Acid Level 1.5 mmol/L (0.4-2.0) Calcium Level 11.2 mg/dL (8.5-10.1) Magnesium Level 2.7 mg/dL (1.8-2.4) Total Bilirubin 0.5 mg/dL (0.2-1.0) Aspartate Amino Transf (AST/SGOT) 35 U/L (15-37) Alanine Aminotransferase (ALT/SGPT) 30 U/L (14-59) Alkaline Phosphatase 82 U/L (46-116) Total Protein 7.7 g/dL (6.4-8.2) Albumin 3.6 g/dL (3.4-5.0) Albumin/Globulin Ratio 0.9 (1.0-1.7) Lipase 57 U/L (73-393) Stool Occult Blood Positive (NEG) Urine Collection Type U cath Urine Color Yellow Urine Clarity Clear Urine pH 8.0 (<5.0-8.0) Urine Specific [place] 1.025 (1.000-1.030) Urine Protein Negative mg/dL (NEG-TRACE) Urine Glucose (UA) Negative mg/dL (NEG) Urine Ketones (Stick) 15 mg/dL (NEG) Urine Blood Negative (NEG) Urine Nitrite Negative (NEG) Urine Bilirubin Negative (NEG) Urine Urobilinogen Dipstick 1.0 mg/dL (0.2 mg/dL) Urine Leukocyte Esterase Negative (NEG) Urine RBC 11-20 /HPF (0-2) Urine WBC 1-4 /HPF (0-4) Urine Squamous Epithelial Cells Few /LPF Urine Bacteria Few /HPF (0-FEW) Urine Hyaline Casts Occasional /HPF Urine Mucus Slight /LPF Images Images EXAM: CT Chest without IV contrast INDICATION: Pneumonia TECHNIQUE: Multi-detector row CT images were acquired from the thoracic inlet through the upper abdomen without the use of IV contrast. Sagittal and coronal images were acquired from the transaxial data. All CT scans performed at this facility utilize dose optimization techniques as appropriate to the exam, including the following: Automated exposure control and adjustment of the mA and/or KV according to patient size (this includes techniques or standardized protocols for targeted exams where dose is indication/reason for exam). COMPARISON: None FINDINGS: The absence of IV contrast limits evaluation of soft tissue pathology. CARDIOVASCULAR: Multivessel coronary calcifications, aortic valvular calcifications and mitral annulus calcifications are present at the heart is normal in size and no pericardial effusion is evident. MEDIASTINUM & YIN: No adenopathy or masses. LUNGS: Patchy parenchymal consolidation most conspicuous in the lateral and posterior basal left lower lobe and in the medial segment right middle lobe with mild bronchiectasis is noted. PLEURAL SPACE: Trace bilateral pleural effusions. No pneumothorax. OSSEOUS & SOFT TISSUE: Vacuum phenomenon in the superior endplate of T11 is present. Can't exclude a subtle superior endplate acute compression fracture is no more than 10 percent loss of height. No posterior cortical buckling. Old healed fracture of the proximal sternal body. ABDOMEN: The visualized portions of the upper abdomen are unremarkable. IMPRESSION: 1. Small bilateral pleural effusions and findings of bronchopneumonia involving the medial right middle lobe and posterior left lower lobe. 2. Possibly acute superior endplate compression fracture at T11 with less than 10 percent loss of height.. Electronically signed by: Kiran Grey MD (01/11/2020 1:11 PM) [id number] STATUS: REG ER ORD. PHYSICIAN: YAZ FLORES APRN REASON: lower abd pain, diarrhea PROCEDURE: CT ABDOMEN PELVIS WO CONTRAST CT abdomen and pelvis without contrast: Reason for examination: Low abdominal pain and diarrhea. Helical images were obtained through the abdomen and pelvis with no intravenous or oral contrast administered. Reconstruction was performed in sagittal and coronal planes. Exposure: One or more of the following individualized dose reduction techniques were utilized for this examination: 1. Automated exposure control 2. Adjustment of the mA and/or kV according to patient size 3. Use of iterative reconstruction technique. The lung bases show some infiltrates or atelectasis posteriorly in the costophrenic angles. There are small bilateral pleural effusions. The heart size is normal with no pericardial effusion. No abnormality seen at the liver, gallbladder, spleen, adrenal glands or pancreas. There is a small hiatal hernia. The stomach shows no abnormal wall thickening or obstruction. The colon shows presence of diverticulosis without diverticulitis. There is a large amount of fecal material in the colon. The appendix is not identified. The small intestinal tract shows no abnormal dilatation or evidence of obstruction. The kidneys show no renal masses, renal calculi, hydronephrosis or evidence of obstructive uropathy. No abnormality seen at the bladder or vaginal cuff. No free fluid or free air seen in the abdomen or pelvis. There are severe degenerative changes in the thoracolumbar spine with a grade 1 anterolisthesis of L5 on S1. There also appears to be a mild compression deformity at the T11 vertebral body. IMPRESSION: Bibasal infiltrates or atelectasis posteriorly at the costophrenic angles bilaterally. Small bilateral pleural effusions. Small hiatal hernia. Diverticulosis without evidence of diverticulitis. Large amount of fecal material in the colon. Severe degenerative spondylosis with a grade 1 anterolisthesis of L5 on S1. Mild compression deformity at the T11 vertebral body. Electronically signed by: Jemma Oliver MD (01/11/2020 12:28 AM) [id number] VTE Prophylaxis Ordered VTE Prophylaxis Devices: No VTE Pharmacological Prophylaxi: Yes Assessment/Plan Assessment/Plan Impression: Diarrhea altered mental status secondary to pneumonia SEPSIS R/O C-DIFF CAP (community acquired pneumonia) Small bilateral pleural effusions and findings of bronchopneumonia involving the medial right middle lobe and posterior left lower lobe. Bibasalar infiltrates or atelectasis posteriorly at the costophrenic angles bilaterally. Small bilateral pleural effusions. Small hiatal hernia. Diverticulosis without evidence of diverticulitis. Large amount of fecal material in the colon. HYPOTHYROID STATE ON REPLACEMENT ADMITTED PLAN GI CONSULT ID CONSULT CT CHEST REVIEWED COVID-19 AG DVT PROPHYLAXIS stool culture ID CONSULT EMPERIC IV ANTIBIOTICS 76 MIN PT EXAM, CHART REVIEW, > 50% OF TIME SPENT WITH EXAM, CHART REVIEW, PT CARE COORDINATION ARSENIO AGUILERA MD Jan 11, 2020 11:01
[2020-01-11] MEDS ORDERED: 0.9 % SODIUM CHLORIDE 10 ML DISP.SYRIN. IV PRN (11:30)
[2020-01-11] MEDS ORDERED: ALBUTEROL SULFATE 2.5 MG/3 ML NEBU. NEB PRN (11:30)
[2020-01-11] MEDS ORDERED: ONDANSETRON PF 4 MG/2 ML VIAL. IV PRN (11:30)
[2020-01-11] MEDS ORDERED: ONDANSETRON PF 4 MG/2 ML VIAL. IVP PRN (12:45)
[2020-01-11] MEDS: ENOXAPARIN 30 MG/0.3 ML SYRINGE. SQ SCH (12:54)
[2020-01-11] MEDS: ACETAMINOPHEN 325 MG TABLET. PO SCH (12:57)
--- NOTE | 2020-01-11 13:08 | PDOC2 ---
GI CONSULT Reason For Consult: possible c diff HPI: HPI: 89 y/o female brought to ER w/ diarrhea - chart indicates h/o C Diff, current issues began after taking antibiotic for UTI. Hospitalist has ordered testing r/o COVID-19, she's currently alone in room and not a good historian. Stool tests ordered in ER, pending. Per nurse, 4 loose stools this morning and then a formed one. Not sure how much breakfast she ate but just vomited (?coughed up) a little chewed up food after taking a bite or two of lunch. PMH: PMH: per chart: RA, OA, BCC, SCC, hypothyroidism, osteopenia, C Diff FH: Family History: No pertinent hx Social History: Smoke: No ALCOHOL: none Drugs: None ROS: Difficult to obtain. Vitals: Vitals: Vital Signs Date Time Temp Pulse Resp B/P (MAP) Pulse Ox O2 Delivery O2 Flow Rate FiO2 01/11/20 11:00 98.1 94 16 102/48 (66) 95 Room Air 98.1 Labs: Labs: Laboratory Tests Test 01/10/20 23:40 01/11/20 03:01 01/11/20 03:10 White Blood Count 16.1 x10^3/uL (4.0-11.0) Red Blood Count 3.90 x10^6/uL (3.50-5.40) Hemoglobin 12.0 g/dL (12.0-15.5) Hematocrit 36.0 % (36.0-47.0) Mean Corpuscular Volume 92 fL (79-100) Mean Corpuscular Hemoglobin 31 pg (25-35) Mean Corpuscular Hemoglobin Concent 33 g/dL (31-37) Red Cell Distribution Width 12.6 % (11.5-14.5) Platelet Count 337 x10^3/uL (140-400) Neutrophils (%) (Auto) 86 % (31-73) Lymphocytes (%) (Auto) 5 % (24-48) Monocytes (%) (Auto) 9 % (0-9) Eosinophils (%) (Auto) 0 % (0-3) Basophils (%) (Auto) 0 % (0-3) Neutrophils # (Auto) 13.8 x10^3/uL (1.8-7.7) Lymphocytes # (Auto) 0.8 x10^3/uL (1.0-4.8) Monocytes # (Auto) 1.5 x10^3/uL (0.0-1.1) Eosinophils # (Auto) 0.0 x10^3/uL (0.0-0.7) Basophils # (Auto) 0.1 x10^3/uL (0.0-0.2) Segmented Neutrophils % 80 % (35-66) Band Neutrophils % 7 % (0-9) Lymphocytes % 3 % (24-48) Monocytes % 10 % (0-10) Toxic Vacuolation Slight Platelet Estimate Adequate (ADEQUATE) Sodium Level 136 mmol/L (136-145) Potassium Level 4.2 mmol/L (3.5-5.1) Chloride Level 97 mmol/L (98-107) Carbon Dioxide Level 27 mmol/L (21-32) Anion Gap 12 (6-14) Blood Urea Nitrogen 29 mg/dL (7-20) Creatinine 0.8 mg/dL (0.6-1.0) Estimated GFR (Cockcroft-Gault) 67.7 BUN/Creatinine Ratio 36 (6-20) Glucose Level 131 mg/dL (70-99) Lactic Acid Level 1.5 mmol/L (0.4-2.0) Calcium Level 11.2 mg/dL (8.5-10.1) Magnesium Level 2.7 mg/dL (1.8-2.4) Total Bilirubin 0.5 mg/dL (0.2-1.0) Aspartate Amino Transf (AST/SGOT) 35 U/L (15-37) Alanine Aminotransferase (ALT/SGPT) 30 U/L (14-59) Alkaline Phosphatase 82 U/L (46-116) Total Protein 7.7 g/dL (6.4-8.2) Albumin 3.6 g/dL (3.4-5.0) Albumin/Globulin Ratio 0.9 (1.0-1.7) Lipase 57 U/L (73-393) Stool Occult Blood Positive (NEG) Urine Collection Type U cath Urine Color Yellow Urine Clarity Clear Urine pH 8.0 (<5.0-8.0) Urine Specific [place] 1.025 (1.000-1.030) Urine Protein Negative mg/dL (NEG-TRACE) Urine Glucose (UA) Negative mg/dL (NEG) Urine Ketones (Stick) 15 mg/dL (NEG) Urine Blood Negative (NEG) Urine Nitrite Negative (NEG) Urine Bilirubin Negative (NEG) Urine Urobilinogen Dipstick 1.0 mg/dL (0.2 mg/dL) Urine Leukocyte Esterase Negative (NEG) Urine RBC 11-20 /HPF (0-2) Urine WBC 1-4 /HPF (0-4) Urine Squamous Epithelial Cells Few /LPF Urine Bacteria Few /HPF (0-FEW) Urine Hyaline Casts Occasional /HPF Urine Mucus Slight /LPF Allergies: Coded Allergies: Iodinated Contrast Media (Verified Allergy, Intermediate, 06/01/14) Penicillins (Verified Allergy, Intermediate, 06/01/14) codeine (Verified Allergy, Intermediate, 06/01/14) iodine (Verified Allergy, Intermediate, 06/01/14) Medications: Current Medications Medications (Trade) Dose Ordered Sig/Fam Route PRN Reason Start Time Stop Time Status Last Admin Dose Admin Sodium Chloride 500 ml @ 500 mls/hr 1X ONCE IV 01/10/20 23:15 01/11/20 00:14 DC 01/11/20 00:11 Levofloxacin/ Dextrose 150 ml @ 100 mls/hr 1X ONCE IV 01/11/20 01:00 01/11/20 02:29 DC 01/11/20 01:57 Cefepime HCl (Maxipime) 2 gm 1X ONCE IVP 01/11/20 01:15 01/11/20 01:16 DC 01/11/20 01:56 Sodium Chloride 1,000 ml @ 125 mls/hr 1X ONCE IV 01/11/20 01:45 01/11/20 09:44 DC 01/11/20 02:07 Calcium/Vitamin D (Oscal D 500mg/ 200uts) 1 tab BID PO 01/11/20 09:00 01/11/20 10:15 Levothyroxine Sodium (Synthroid) 75 mcg DAILY06 PO 01/11/20 10:30 01/11/20 10:15 Imaging: Imaging: CT A/P The lung bases show some infiltrates or atelectasis posteriorly in the costophrenic angles. There are small bilateral pleural effusions. The heart size is normal with no pericardial effusion. No abnormality seen at the liver, gallbladder, spleen, adrenal glands or pancreas. There is a small hiatal hernia. The stomach shows no abnormal wall thickening or obstruction. The colon shows presence of diverticulosis without diverticulitis. There is a large amount of fecal material in the colon. The appendix is not identified. The small intestinal tract shows no abnormal dilatation or evidence of obstruction. The kidneys show no renal masses, renal calculi, hydronephrosis or evidence of obstructive uropathy. No abnormality seen at the bladder or vaginal cuff. No free fluid or free air seen in the abdomen or pelvis. There are severe degenerative changes in the thoracolumbar spine with a grade 1 anterolisthesis of L5 on S1. There also appears to be a mild compression deformity at the T11 vertebral body. IMPRESSION: Bibasal infiltrates or atelectasis posteriorly at the costophrenic angles bilaterally. Small bilateral pleural effusions. Small hiatal hernia. Diverticulosis without evidence of diverticulitis. Large amount of fecal material in the colon. Severe degenerative spondylosis with a grade 1 anterolisthesis of L5 on S1. Mild compression deformity at the T11 vertebral body. Chest CT pending PE: GEN: NAD HEENT: Atraumatic, PERRL LUNGS: CTAB HEART: RRR ABD: NABS, S/ND, periumbilical discomfort - seemed to startle her initially, less tender when re-palpated EXTREMITY: No edema SKIN: No rashes, no jaundice NEURO/PSYCH: awake and alert, Tribe A/P: A/P: ?diarrhea - h/o C Diff w/ recent antibiotic use Leukocytosis, ?UTI, +Hemoccult Abnormal CT - infiltrates vs atelectasis, small bilateral pleural effusions, la rge fecal material in colon Small hiatal hernia, diverticulosis R/o COVID-19 -- ?really having diarrhea - CT report notes large amount of stool but does have h/o C Diff and recent atbx use Await pending tests. ?vomiting vs coughing - consider backing off on diet, will add PPI (IV for now). CRISTINE FLORES Jan 11, 2020 13:08
--- NOTE | 2020-01-11 13:14 | RAD ---
EXAM: CT Chest without IV contrast INDICATION: Pneumonia TECHNIQUE: Multi-detector row CT images were acquired from the thoracic inlet through the upper abdomen without the use of IV contrast. Sagittal and coronal images were acquired from the transaxial data. All CT scans performed at this facility utilize dose optimization techniques as appropriate to the exam, including the following: Automated exposure control and adjustment of the mA and/or KV according to patient size (this includes techniques or standardized protocols for targeted exams where dose is indication/reason for exam). COMPARISON: None FINDINGS: The absence of IV contrast limits evaluation of soft tissue pathology. CARDIOVASCULAR: Multivessel coronary calcifications, aortic valvular calcifications and mitral annulus calcifications are present at the heart is normal in size and no pericardial effusion is evident. MEDIASTINUM & YIN: No adenopathy or masses. LUNGS: Patchy parenchymal consolidation most conspicuous in the lateral and posterior basal left lower lobe and in the medial segment right middle lobe with mild bronchiectasis is noted. PLEURAL SPACE: Trace bilateral pleural effusions. No pneumothorax. OSSEOUS & SOFT TISSUE: Vacuum phenomenon in the superior endplate of T11 is present. Can't exclude a subtle superior endplate acute compression fracture is no more than 10 percent loss of height. No posterior cortical buckling. Old healed fracture of the proximal sternal body. ABDOMEN: The visualized portions of the upper abdomen are unremarkable. IMPRESSION: 1. Small bilateral pleural effusions and findings of bronchopneumonia involving the medial right middle lobe and posterior left lower lobe. 2. Possibly acute superior endplate compression fracture at T11 with less than 10 percent loss of height.. Electronically signed by: Kiran Grey MD (01/11/2020 1:11 PM) [id number]
--- NOTE | 2020-01-11 13:22 | NUR ---
SS following for discharge planning. SS reviewed pt chart and discussed with RN. Pt is from home and is currently on room air. COVID19 test pending at this time. SS will continue to follow for discharge planning.
[2020-01-11] MEDS: PANTOPRAZOLE IV PUSH 40 MG VIAL. IVP SCH (15:37)
[2020-01-11] MEDS: guaiFENesin ORAL 200 MG/10 ML LIQUID. PO PRN (15:42)
[2020-01-11] MEDS: IV NORMAL SALINE 1000ML BAG 1,000 ML IV SCH (15:42)
[2020-01-11 15:59] VITALS: BP 120/56
[2020-01-11 19:45] VITALS: BP 123/55
[2020-01-11] MEDS: CEFEPIME HCL IV Push 1 GM VIAL. IVP SCH (21:41)
[2020-01-11] MEDS: ACETAMINOPHEN 325 MG TABLET. PO PRN (21:41)
[2020-01-11] MEDS: LACTOBACILLUS RHAMNOSUS GG 1 CAPSULE. PO SCH (21:41)
[2020-01-11 23:19] VITALS: BP 111/43
[2020-01-12] VITALS (7 sets, daily range): BP systolic 121–148; BP diastolic 60–81
[2020-01-12 05:09] LABS: BASO % 1 % (0-3); EOS # 0.1 x10^3/uL (0.0-0.7); EOS % 1 % (0-3); HEMATOCRIT 30.3 % (36.0-47.0); LYMPH # 1.5 x10^3/uL (1.0-4.8); LYMPH % 15 % (24-48); MEAN CORPUSCULAR HEMOGLOBIN 31 pg (25-35); MEAN CORPUSCULAR HGB CONC 33 g/dL (31-37); MEAN CORPUSCULAR VOLUME 93 fL (79-100); MONO % 11 % (0-9); NEUT # 7.3 x10^3/uL (1.8-7.7); NEUT % 73 % (31-73); PLATELET COUNT 302 x10^3/uL (140-400); RED BLOOD COUNT 3.25 x10^6/uL (3.50-5.40); RED CELL DISTRIBUTION WIDTH 12.8 % (11.5-14.5); WHITE BLOOD COUNT 9.9 x10^3/uL (4.0-11.0)
[2020-01-12 05:21] LABS: ALBUMIN 2.2 g/dL (3.4-5.0); ALBUMIN/GLOBULIN RATIO 0.7 (1.0-1.7); CREATININE 0.7 mg/dL (0.6-1.0); POTASSIUM 3.6 mmol/L (3.5-5.1); TOTAL BILIRUBIN 0.4 mg/dL (0.2-1.0); TOTAL PROTEIN 5.4 g/dL (6.4-8.2)
[2020-01-12] MEDS: IV NORMAL SALINE 1000ML BAG 1,000 ML IV SCH ×2 (05:29→23:40)
[2020-01-12] MEDS: LEVOTHYROXINE 75 MCG TABLET PO SCH (06:00)
--- NOTE | 2020-01-12 07:31 | NUR ---
IP: Pt is being tested for COVI-19 requiring droplet/contact precautions using a face shield until results verified.
--- NOTE | 2020-01-12 08:09 | PDOC ---
PROGRESS NOTES History of Present Illness History of Present Illness VTE Prophylaxis Ordered VTE Prophylaxis Devices: No VTE Pharmacological Prophylaxi: Yes Assessment/Plan Assessment/Plan Impression: Diarrhea altered mental status secondary to pneumonia SEPSIS R/O C-DIFF CAP (community acquired pneumonia) Small bilateral pleural effusions and findings of bronchopneumonia involving the medial right middle lobe and posterior left lower lobe. Bibasalar infiltrates or atelectasis posteriorly at the costophrenic angles bilaterally. Small bilateral pleural effusions. Small hiatal hernia. Diverticulosis without evidence of diverticulitis. Large amount of fecal material in the colon. HYPOTHYROID STATE ON REPLACEMENT ADMITTED PLAN GI CONSULT ID CONSULT CT CHEST REVIEWED COVID-19 AG DVT PROPHYLAXIS stool culture ID CONSULT EMPERIC IV ANTIBIOTICS cefepime add empiric doxycycline c diff, stool cult aspiration precautions COVID =19 PENDING 37 MIN PT EXAM, CHART REVIEW, > 50% OF TIME SPENT WITH EXAM, CHART REVIEW, PT CARE COORDINATION Vitals Vitals Vital Signs Date Time Temp Pulse Resp B/P (MAP) Pulse Ox O2 Delivery O2 Flow Rate FiO2 01/12/20 03:35 98.4 89 16 141/71 (94) 93 Room Air 98.4 Physical Exam General: Alert, Cooperative, No acute distress Lungs: Clear, Other Abdomen: Normal bowel sounds, Soft Extremities: No cyanosis Labs LABS Laboratory Tests Test 01/12/20 04:48 White Blood Count 9.9 x10^3/uL (4.0-11.0) Red Blood Count 3.25 x10^6/uL (3.50-5.40) Hemoglobin 10.0 g/dL (12.0-15.5) Hematocrit 30.3 % (36.0-47.0) Mean Corpuscular Volume 93 fL (79-100) Mean Corpuscular Hemoglobin 31 pg (25-35) Mean Corpuscular Hemoglobin Concent 33 g/dL (31-37) Red Cell Distribution Width 12.8 % (11.5-14.5) Platelet Count 302 x10^3/uL (140-400) Neutrophils (%) (Auto) 73 % (31-73) Lymphocytes (%) (Auto) 15 % (24-48) Monocytes (%) (Auto) 11 % (0-9) Eosinophils (%) (Auto) 1 % (0-3) Basophils (%) (Auto) 1 % (0-3) Neutrophils # (Auto) 7.3 x10^3/uL (1.8-7.7) Lymphocytes # (Auto) 1.5 x10^3/uL (1.0-4.8) Monocytes # (Auto) 1.0 x10^3/uL (0.0-1.1) Eosinophils # (Auto) 0.1 x10^3/uL (0.0-0.7) Basophils # (Auto) 0.0 x10^3/uL (0.0-0.2) Sodium Level 139 mmol/L (136-145) Potassium Level 3.6 mmol/L (3.5-5.1) Chloride Level 104 mmol/L (98-107) Carbon Dioxide Level 24 mmol/L (21-32) Anion Gap 11 (6-14) Blood Urea Nitrogen 17 mg/dL (7-20) Creatinine 0.7 mg/dL (0.6-1.0) Estimated GFR (Cockcroft-Gault) 79.0 BUN/Creatinine Ratio 24 (6-20) Glucose Level 91 mg/dL (70-99) Calcium Level 8.0 mg/dL (8.5-10.1) Total Bilirubin 0.4 mg/dL (0.2-1.0) Aspartate Amino Transf (AST/SGOT) 28 U/L (15-37) Alanine Aminotransferase (ALT/SGPT) 22 U/L (14-59) Alkaline Phosphatase 68 U/L (46-116) Total Protein 5.4 g/dL (6.4-8.2) Albumin 2.2 g/dL (3.4-5.0) Albumin/Globulin Ratio 0.7 (1.0-1.7) Comment Review of Relevant I have reviewed the following items rachel (where applicable) has been applied. Labs Laboratory Tests Test 01/10/20 23:40 01/11/20 03:01 01/11/20 03:10 01/12/20 04:48 White Blood Count 16.1 x10^3/uL (4.0-11.0) 9.9 x10^3/uL (4.0-11.0) Red Blood Count 3.90 x10^6/uL (3.50-5.40) 3.25 x10^6/uL (3.50-5.40) Hemoglobin 12.0 g/dL (12.0-15.5) 10.0 g/dL (12.0-15.5) Hematocrit 36.0 % (36.0-47.0) 30.3 % (36.0-47.0) Mean Corpuscular Volume 92 fL (79-100) 93 fL (79-100) Mean Corpuscular Hemoglobin 31 pg (25-35) 31 pg (25-35) Mean Corpuscular Hemoglobin Concent 33 g/dL (31-37) 33 g/dL (31-37) Red Cell Distribution Width 12.6 % (11.5-14.5) 12.8 % (11.5-14.5) Platelet Count 337 x10^3/uL (140-400) 302 x10^3/uL (140-400) Neutrophils (%) (Auto) 86 % (31-73) 73 % (31-73) Lymphocytes (%) (Auto) 5 % (24-48) 15 % (24-48) Monocytes (%) (Auto) 9 % (0-9) 11 % (0-9) Eosinophils (%) (Auto) 0 % (0-3) 1 % (0-3) Basophils (%) (Auto) 0 % (0-3) 1 % (0-3) Neutrophils # (Auto) 13.8 x10^3/uL (1.8-7.7) 7.3 x10^3/uL (1.8-7.7) Lymphocytes # (Auto) 0.8 x10^3/uL (1.0-4.8) 1.5 x10^3/uL (1.0-4.8) Monocytes # (Auto) 1.5 x10^3/uL (0.0-1.1) 1.0 x10^3/uL (0.0-1.1) Eosinophils # (Auto) 0.0 x10^3/uL (0.0-0.7) 0.1 x10^3/uL (0.0-0.7) Basophils # (Auto) 0.1 x10^3/uL (0.0-0.2) 0.0 x10^3/uL (0.0-0.2) Segmented Neutrophils % 80 % (35-66) Band Neutrophils % 7 % (0-9) Lymphocytes % 3 % (24-48) Monocytes % 10 % (0-10) Toxic Vacuolation Slight Platelet Estimate Adequate (ADEQUATE) Sodium Level 136 mmol/L (136-145) 139 mmol/L (136-145) Potassium Level 4.2 mmol/L (3.5-5.1) 3.6 mmol/L (3.5-5.1) Chloride Level 97 mmol/L (98-107) 104 mmol/L (98-107) Carbon Dioxide Level 27 mmol/L (21-32) 24 mmol/L (21-32) Anion Gap 12 (6-14) 11 (6-14) Blood Urea Nitrogen 29 mg/dL (7-20) 17 mg/dL (7-20) Creatinine 0.8 mg/dL (0.6-1.0) 0.7 mg/dL (0.6-1.0) Estimated GFR (Cockcroft-Gault) 67.7 79.0 BUN/Creatinine Ratio 36 (6-20) 24 (6-20) Glucose Level 131 mg/dL (70-99) 91 mg/dL (70-99) Lactic Acid Level 1.5 mmol/L (0.4-2.0) Calcium Level 11.2 mg/dL (8.5-10.1) 8.0 mg/dL (8.5-10.1) Magnesium Level 2.7 mg/dL (1.8-2.4) Total Bilirubin 0.5 mg/dL (0.2-1.0) 0.4 mg/dL (0.2-1.0) Aspartate Amino Transf (AST/SGOT) 35 U/L (15-37) 28 U/L (15-37) Alanine Aminotransferase (ALT/SGPT) 30 U/L (14-59) 22 U/L (14-59) Alkaline Phosphatase 82 U/L (46-116) 68 U/L (46-116) Total Protein 7.7 g/dL (6.4-8.2) 5.4 g/dL (6.4-8.2) Albumin 3.6 g/dL (3.4-5.0) 2.2 g/dL (3.4-5.0) Albumin/Globulin Ratio 0.9 (1.0-1.7) 0.7 (1.0-1.7) Lipase 57 U/L (73-393) Stool Occult Blood Positive (NEG) Urine Collection Type U cath Urine Color Yellow Urine Clarity Clear Urine pH 8.0 (<5.0-8.0) Urine Specific [place] 1.025 (1.000-1.030) Urine Protein Negative mg/dL (NEG-TRACE) Urine Glucose (UA) Negative mg/dL (NEG) Urine Ketones (Stick) 15 mg/dL (NEG) Urine Blood Negative (NEG) Urine Nitrite Negative (NEG) Urine Bilirubin Negative (NEG) Urine Urobilinogen Dipstick 1.0 mg/dL (0.2 mg/dL) Urine Leukocyte Esterase Negative (NEG) Urine RBC 11-20 /HPF (0-2) Urine WBC 1-4 /HPF (0-4) Urine Squamous Epithelial Cells Few /LPF Urine Bacteria Few /HPF (0-FEW) Urine Hyaline Casts Occasional /HPF Urine Mucus Slight /LPF Laboratory Tests Test 01/12/20 04:48 White Blood Count 9.9 x10^3/uL (4.0-11.0) Red Blood Count 3.25 x10^6/uL (3.50-5.40) Hemoglobin 10.0 g/dL (12.0-15.5) Hematocrit 30.3 % (36.0-47.0) Mean Corpuscular Volume 93 fL (79-100) Mean Corpuscular Hemoglobin 31 pg (25-35) Mean Corpuscular Hemoglobin Concent 33 g/dL (31-37) Red Cell Distribution Width 12.8 % (11.5-14.5) Platelet Count 302 x10^3/uL (140-400) Neutrophils (%) (Auto) 73 % (31-73) Lymphocytes (%) (Auto) 15 % (24-48) Monocytes (%) (Auto) 11 % (0-9) Eosinophils (%) (Auto) 1 % (0-3) Basophils (%) (Auto) 1 % (0-3) Neutrophils # (Auto) 7.3 x10^3/uL (1.8-7.7) Lymphocytes # (Auto) 1.5 x10^3/uL (1.0-4.8) Monocytes # (Auto) 1.0 x10^3/uL (0.0-1.1) Eosinophils # (Auto) 0.1 x10^3/uL (0.0-0.7) Basophils # (Auto) 0.0 x10^3/uL (0.0-0.2) Sodium Level 139 mmol/L (136-145) Potassium Level 3.6 mmol/L (3.5-5.1) Chloride Level 104 mmol/L (98-107) Carbon Dioxide Level 24 mmol/L (21-32) Anion Gap 11 (6-14) Blood Urea Nitrogen 17 mg/dL (7-20) Creatinine 0.7 mg/dL (0.6-1.0) Estimated GFR (Cockcroft-Gault) 79.0 BUN/Creatinine Ratio 24 (6-20) Glucose Level 91 mg/dL (70-99) Calcium Level 8.0 mg/dL (8.5-10.1) Total Bilirubin 0.4 mg/dL (0.2-1.0) Aspartate Amino Transf (AST/SGOT) 28 U/L (15-37) Alanine Aminotransferase (ALT/SGPT) 22 U/L (14-59) Alkaline Phosphatase 68 U/L (46-116) Total Protein 5.4 g/dL (6.4-8.2) Albumin 2.2 g/dL (3.4-5.0) Albumin/Globulin Ratio 0.7 (1.0-1.7) Microbiology 01/11/20 Blood Culture - Preliminary, Resulted NO GROWTH AFTER 1 DAY Medications Current Medications Sodium Chloride 500 ml @ 500 mls/hr 1X ONCE IV Last administered on 01/11/20at 00:11; Start 01/10/20 at 23:15; Stop 01/11/20 at 00:14; Status DC Levofloxacin/ Dextrose 150 ml @ 100 mls/hr 1X ONCE IV Last administered on 01/11/20at 01:57; Start 01/11/20 at 01:00; Stop 01/11/20 at 02:29; Status DC Cefepime HCl (Maxipime) 2 gm 1X ONCE IVP Last administered on 01/11/20at 01:56; Start 01/11/20 at 01:15; Stop 01/11/20 at 01:16; Status DC Sodium Chloride 1,000 ml @ 125 mls/hr 1X ONCE IV Last administered on 01/11/20at 02:07; Start 01/11/20 at 01:45; Stop 01/11/20 at 09:44; Status DC Acetaminophen (Tylenol) 650 mg BIDACBL PO Last administered on 01/11/20at 12:57; Start 01/11/20 at 11:30 Calcium/Vitamin D (Oscal D 500mg/ 200uts) 1 tab BID PO Last administered on 01/11/20 21:41; Start 01/11/20 at 09:00 Levothyroxine Sodium (Synthroid) 75 mcg DAILY06 PO Last administered on 01/12/20 06:00; Start 01/11/20 at 10:30 Lactobacillus Rhamnosus (Culturelle) 1 cap BID PO Last administered on 01/11/20 21:41; Start 01/11/20 at 21:00 Sodium Chloride (Normal Saline Flush) 3 ml QSHIFT PRN IV AFTER MEDS AND BLOOD DRAWS; Start 01/11/20 at 11:30 Sodium Chloride 1,000 ml @ 55 mls/hr [id number] IV Last administered on 01/12/20 05:29; Start 01/11/20 at 11:18 Ondansetron HCl (Zofran) 4 mg PRN Q4HRS PRN IV NAUSEA/VOMITING Last administered on 01/11/20 12:55; Start 01/11/20 at 11:30 Acetaminophen (Tylenol) 650 mg PRN Q4HRS PRN PO TEMP OVER 100.4F OR MILD PAIN Last administered on 01/11/20 21:41; Start 01/11/20 at 11:30 Clonidine HCl (Catapres) 0.1 mg PRN Q6HRS PRN PO SBP>160 OR DBP>90; Start 01/11/20 at 11:30 Albuterol Sulfate (Ventolin Neb Soln) 2.5 mg PRN Q4HRS PRN NEB SHORTNESS OF BREATH; Start 01/11/20 at 11:30 Guaifenesin (Robitussin) 200 mg PRN Q4HRS PRN PO COUGH Last administered on 01/11/20at 15:42; Start 01/11/20 at 11:30 Enoxaparin Sodium (Lovenox 30mg Syringe) 30 mg Q24H SQ Last administered on 01/11/20at 12:54; Start 01/11/20 at 12:00 Ondansetron HCl (Zofran) 4 mg PRN Q4HRS PRN IVP NAUSEA/VOMITING; Start 01/11/20 at 12:45 Pantoprazole Sodium (PROTONIX VIAL for IV PUSH) 40 mg DAILYAC IVP Last administered on 01/11/20at 15:37; Start 01/11/20 at 16:30 Levofloxacin/ Dextrose 100 ml @ 100 mls/hr Q24H IV Last administered on 01/11/20at 17:41; Start 01/11/20 at 17:00 Cefepime HCl (Maxipime) 1 gm Q12HR IVP Last administered on 01/11/20at 21:41; Start 01/11/20 at 21:00 Active Scripts Active Reported Tylenol (Acetaminophen) 325 Mg Tablet 2 Tab PO BIDACBL Oyster Shell Calcium +D Tablet (Calcium Carbonate/Vitamin D3) 1 Each Tablet 1 Each PO BID Synthroid (Levothyroxine Sodium) 75 Mcg Tablet 1 Tab PO DAILY Vitals/I & O Vital Sign - Last 24 Hours 01/11/20 01/11/20 01/11/20 01/11/20 11:00 15:59 17:11 19:45 Temp 98.1 98.4 98.7 98.1 98.4 98.7 Pulse 94 94 101 Resp 16 22 16 B/P (MAP) 102/48 (66) 120/56 (77) 123/55 (77) Pulse Ox 95 93 90 94 O2 Delivery Room Air Room Air Room Air Room Air 01/11/20 01/11/20 01/12/20 20:00 23:19 03:35 Temp 98.7 98.4 98.7 98.4 Pulse 101 89 Resp 16 16 B/P (MAP) 111/43 (65) 141/71 (94) Pulse Ox 93 93 O2 Delivery Room Air Room Air Room Air Intake and Output 01/11/20 01/11/20 01/12/20 15:00 23:00 07:00 Intake Total 100 ml 360 ml 0 ml Balance 100 ml 360 ml 0 ml ARSENIO AGUILERA MD Jan 12, 2020 08:09
[2020-01-12] MEDS: CALCIUM CARB/VIT D3 500/200 TABLET. PO SCH ×2 (09:06→21:22)
[2020-01-12] MEDS: PANTOPRAZOLE IV PUSH 40 MG VIAL. IVP SCH (09:06)
[2020-01-12] MEDS: CEFEPIME HCL IV Push 1 GM VIAL. IVP SCH ×2 (09:07→21:56)
[2020-01-12] MEDS: LACTOBACILLUS RHAMNOSUS GG 1 CAPSULE. PO SCH ×2 (09:07→21:22)
[2020-01-12] MEDS: ACETAMINOPHEN 325 MG TABLET. PO SCH ×2 (09:07→11:50)
--- NOTE | 2020-01-12 10:50 | PDOC ---
Objective: Objective: D/w nurse - says had a regular tray delivered this morning, no n/v, had a really bad smelling soft stool. Vital Signs: Vital Signs Date Time Temp Pulse Resp B/P (MAP) Pulse Ox O2 Delivery O2 Flow Rate FiO2 01/12/20 08:00 Room Air 01/12/20 07:00 97.3 88 17 148/66 (93) 95 97.3 Labs: Laboratory Tests Test 01/12/20 04:48 White Blood Count 9.9 x10^3/uL Red Blood Count 3.25 x10^6/uL Hemoglobin 10.0 g/dL Hematocrit 30.3 % Mean Corpuscular Volume 93 fL Mean Corpuscular Hemoglobin 31 pg Mean Corpuscular Hemoglobin Concent 33 g/dL Red Cell Distribution Width 12.8 % Platelet Count 302 x10^3/uL Neutrophils (%) (Auto) 73 % Lymphocytes (%) (Auto) 15 % Monocytes (%) (Auto) 11 % Eosinophils (%) (Auto) 1 % Basophils (%) (Auto) 1 % Neutrophils # (Auto) 7.3 x10^3/uL Lymphocytes # (Auto) 1.5 x10^3/uL Monocytes # (Auto) 1.0 x10^3/uL Eosinophils # (Auto) 0.1 x10^3/uL Basophils # (Auto) 0.0 x10^3/uL Sodium Level 139 mmol/L Potassium Level 3.6 mmol/L Chloride Level 104 mmol/L Carbon Dioxide Level 24 mmol/L Anion Gap 11 Blood Urea Nitrogen 17 mg/dL Creatinine 0.7 mg/dL Estimated GFR (Cockcroft-Gault) 79.0 BUN/Creatinine Ratio 24 Glucose Level 91 mg/dL Calcium Level 8.0 mg/dL Total Bilirubin 0.4 mg/dL Aspartate Amino Transf (AST/SGOT) 28 U/L Alanine Aminotransferase (ALT/SGPT) 22 U/L Alkaline Phosphatase 68 U/L Total Protein 5.4 g/dL Albumin 2.2 g/dL Albumin/Globulin Ratio 0.7 BLOOD CULTURE Preliminary NO GROWTH AFTER 1 DAY Imaging: Chest CT IMPRESSION: 1. Small bilateral pleural effusions and findings of bronchopneumonia involving the medial right middle lobe and posterior left lower lobe. 2. Possibly acute superior endplate compression fracture at T11 with less than 10 percent loss of height.. PE: GEN: sitting up in bed, asleep, breakfast tray (regular) half consumed A/P: Pneumonia, r/o COVID-19 Compression fracture ?diarrhea, h/o C Diff Anemia, + hemoccult -- Has full liquid diet ordered - getting regular and apparently tolerating. Formed/soft stool per nurse. Stool tests pending, along w/ COVID-19. Check iron for completeness. Continue PPI, could change to PO if continues to tolerate diet. Hemodynamically unstable?: No Is patient in severe pain?: No Is NPO status required?: No CRISTINE FLORES Jan 12, 2020 10:50
--- NOTE | 2020-01-12 10:54 | PDOC ---
Infectious Disease Note Vital Signs: Vital Signs Vital Signs Date Time Temp Pulse Resp B/P (MAP) Pulse Ox O2 Delivery O2 Flow Rate FiO2 01/12/20 08:00 Room Air 01/12/20 07:00 97.3 88 17 148/66 (93) 95 97.3 Medications: Inpatient Meds: Current Medications Medications (Trade) Dose Ordered Sig/Fam Start Time Stop Time Status Last Admin Dose Admin Acetaminophen (Tylenol) 650 mg PRN Q4HRS PRN 01/11/20 11:30 01/11/20 21:41 650 MG Albuterol Sulfate (Ventolin Neb Soln) 2.5 mg PRN Q4HRS PRN 01/11/20 11:30 Calcium/Vitamin D (Oscal D 500mg/ 200uts) 1 tab BID 01/11/20 09:00 01/12/20 09:06 1 TAB Cefepime HCl (Maxipime) 1 gm Q12HR 01/11/20 21:00 01/12/20 09:07 1 GM Clonidine HCl (Catapres) 0.1 mg PRN Q6HRS PRN 01/11/20 11:30 Enoxaparin Sodium (Lovenox 30mg Syringe) 30 mg Q24H 01/11/20 12:00 01/11/20 12:54 30 MG Guaifenesin (Robitussin) 200 mg PRN Q4HRS PRN 01/11/20 11:30 01/11/20 15:42 200 MG Lactobacillus Rhamnosus (Culturelle) 1 cap BID 01/11/20 21:00 01/12/20 09:07 1 CAP Levofloxacin/ Dextrose 100 ml @ 100 mls/hr Q24H 01/11/20 17:00 01/12/20 10:39 DC 01/11/20 17:41 100 MLS/HR Levothyroxine Sodium (Synthroid) 75 mcg DAILY06 01/11/20 10:30 01/12/20 06:00 75 MCG Ondansetron HCl (Zofran) 4 mg PRN Q4HRS PRN 01/11/20 12:45 Pantoprazole Sodium (PROTONIX VIAL for IV PUSH) 40 mg DAILYAC 01/11/20 16:30 01/12/20 09:06 40 MG Sodium Chloride 1,000 ml @ 55 mls/hr [id number] 01/11/20 11:18 01/12/20 05:29 55 MLS/HR Sodium Chloride (Normal Saline Flush) 3 ml QSHIFT PRN 01/11/20 11:30 Labs: Lab Laboratory Tests Test 01/12/20 04:48 White Blood Count 9.9 x10^3/uL (4.0-11.0) Red Blood Count 3.25 x10^6/uL (3.50-5.40) Hemoglobin 10.0 g/dL (12.0-15.5) Hematocrit 30.3 % (36.0-47.0) Mean Corpuscular Volume 93 fL (79-100) Mean Corpuscular Hemoglobin 31 pg (25-35) Mean Corpuscular Hemoglobin Concent 33 g/dL (31-37) Red Cell Distribution Width 12.8 % (11.5-14.5) Platelet Count 302 x10^3/uL (140-400) Neutrophils (%) (Auto) 73 % (31-73) Lymphocytes (%) (Auto) 15 % (24-48) Monocytes (%) (Auto) 11 % (0-9) Eosinophils (%) (Auto) 1 % (0-3) Basophils (%) (Auto) 1 % (0-3) Neutrophils # (Auto) 7.3 x10^3/uL (1.8-7.7) Lymphocytes # (Auto) 1.5 x10^3/uL (1.0-4.8) Monocytes # (Auto) 1.0 x10^3/uL (0.0-1.1) Eosinophils # (Auto) 0.1 x10^3/uL (0.0-0.7) Basophils # (Auto) 0.0 x10^3/uL (0.0-0.2) Sodium Level 139 mmol/L (136-145) Potassium Level 3.6 mmol/L (3.5-5.1) Chloride Level 104 mmol/L (98-107) Carbon Dioxide Level 24 mmol/L (21-32) Anion Gap 11 (6-14) Blood Urea Nitrogen 17 mg/dL (7-20) Creatinine 0.7 mg/dL (0.6-1.0) Estimated GFR (Cockcroft-Gault) 79.0 BUN/Creatinine Ratio 24 (6-20) Glucose Level 91 mg/dL (70-99) Calcium Level 8.0 mg/dL (8.5-10.1) Total Bilirubin 0.4 mg/dL (0.2-1.0) Aspartate Amino Transf (AST/SGOT) 28 U/L (15-37) Alanine Aminotransferase (ALT/SGPT) 22 U/L (14-59) Alkaline Phosphatase 68 U/L (46-116) Total Protein 5.4 g/dL (6.4-8.2) Albumin 2.2 g/dL (3.4-5.0) Albumin/Globulin Ratio 0.7 (1.0-1.7) Objective: Assessment: Pt seen and examined IMP: Diarrhea now improved Nausea and vomiting now resolved Leucocytosis Pulm infiltrates ? aspiration H/O Recent UTI treated before admission H/O C diff [id number] Plan: Plan of Care cont cefepime dc levo and add empiric doxycycline f/u labs, c diff, stool cult maintain aspiration precautions COVID pending LUANA WILSON MD Jan 12, 2020 10:54
--- NOTE | 2020-01-12 11:09 | CONS ---
DATE OF CONSULTATION: 01/12/2020 REFERRING PHYSICIAN: Bryant Calhoun MD REASON FOR CONSULTATION: Pneumonia, sepsis. HISTORY OF PRESENT ILLNESS: An 89-year-old female was brought to the ER on 01/11/2020 with complaints of diarrhea, which began on the day of admission. The patient had reported 9 episodes of foul smelling liquid stool. The patient is a poor historian, is alone in the room right now. History obtained from chart and from staff. The patient had history of remote C. diff infection. The patient was seen by her primary care md for sudden onset of urinary incontinence and confusion. She was diagnosed with UTI and was prescribed Macrobid. The patient completed her antibiotics. She lives in her apartment by herself. The patient was found to have leukocytosis. Hemoglobin was 12.0, likely from dehydration. Creatinine was 0.8. She underwent CT of the abdomen and pelvis without contrast, which showed bibasilar infiltrate or atelectasis posterior at the costophrenic angle bilaterally, small bilateral pleural effusions, small hiatal hernia, diverticulosis without evidence of diverticulitis. Large amount of fecal material in the colon. 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 Mild compression deformity at T11 vertebral body. C. diff was ordered. Stool cultures were ordered. Ova and parasites were ordered. The patient also underwent a 2019 novel coronavirus, currently is in isolation. This morning, the patient had one semi-formed stool. Yesterday, she had about 4 loose stools. The patient states she is able to eat a little better, though had vomited yesterday, none today. Denies any nausea. Denies any burning while passing urine or abdominal pain. PAST MEDICAL HISTORY: Per chart review, hypothyroidism, osteoporosis, basal cell carcinoma of the skin, osteopenia, history of C. diff, DJD, history of rheumatoid arthritis, . ALLERGIES: IV CONTRAST, PENICILLIN, CODEINE, UNKNOWN REACTION. FAMILY HISTORY: Coronary artery disease. SOCIAL HISTORY: Lives alone. No smoking, no alcohol. Retired. CURRENT MEDICATIONS: IV cefepime and Levaquin. Other medications reviewed in medication list. REVIEW OF SYSTEMS: Limited, but negative except for above. PHYSICAL EXAMINATION: VITAL SIGNS: Temperature 97.3, pulse 88, respiratory rate 17, blood pressure 128/66, oxygen saturation 95% on room air. GENERAL: Alert, awake, pleasant female, lying in bed comfortably, in no acute distress, no accessory muscle use. HEENT: Anicteric, no thrush. Oral mucosa moist. NECK: Supple. LUNGS: Decreased breath sounds at the bases. No wheezing. No accessory muscle use. HEART: S1, S2. ABDOMEN: Soft, nontender, no rebound, no guarding. EXTREMITIES: No edema, no cyanosis. DERMATOLOGIC: Warm, dry. No generalized rash. NEUROLOGIC: Alert, awake, somewhat confused, but answers questions appropriately. Hard of hearing. LABORATORY DATA: WBC 9.9, was 16.1; hemoglobin 10.0; hematocrit 30.3; platelets 302. Sodium 139, potassium 3.6, chloride 104, bicarbonate 24, BUN 17, creatinine 0.7, lactate 1.5, calcium was 11.2 and now repeat is 8.0, albumin 2.2. UA negative. Stool occult blood positive. MICROBIOLOGY: Blood culture negative so far. Stool culture pending at this time. C. diff pending at this time. Ova and parasite pending at this time. IMAGIN. CT abdomen and pelvis as above. 2. CT chest shows small bilateral pleural effusion with findings of bronchopneumonia involving the medial right middle lobe and posterior left lower lobe, possibly acute superior endplate compression fracture at T11 with less than 10% loss of height. IMPRESSION: 1. Diarrhea, present on admission. Awaiting C. diff stool cultures. 2. Leukocytosis. 3. Pulmonary infiltrate could have a component of aspiration with nausea and vomiting. 4. History of recent urinary tract infection, treated with Macrobid as outpatient prior to admission. 5. History of Clostridium difficile remote past. 6. Rheumatoid arthritis. 7. Stool occult blood positive. RECOMMENDATIONS: 1. Continue empiric cefepime. 2. Add empiric doxycycline. 3. If the patient is able to produce sputum, send sputum for Gram stain and culture. 4. Follow up cultures and lab. 5. Follow up C. diff and stool cultures. 6. Maintain aspiration precaution. 7. Continue supportive care. 8. Discussed with nursing staff. Thank you for consulting Infectious Disease to participate in this patient's care. If you have any questions, do not hesitate to contact me. LUANA WILSON MD DR: JORGE/marv JOB#: [id number] / [id number]
[2020-01-12] MEDS: ENOXAPARIN 30 MG/0.3 ML SYRINGE. SQ SCH (11:50)
[2020-01-12] MEDS: ACETAMINOPHEN 325 MG TABLET. PO PRN (21:22)
[2020-01-12] MEDS: DOXYCYCLINE HYCLATE 100 MG TABLET PO SCH (21:33)
[2020-01-13] VITALS (7 sets, daily range): BP systolic 116–167; BP diastolic 57–89
[2020-01-13] MEDS: LEVOTHYROXINE 75 MCG TABLET PO SCH (05:37)
--- NOTE | 2020-01-13 08:56 | PDOC ---
Infectious Disease Note Subjective Subjective Comfortable, hungry No further diarrhea Denies pain ROS ROS per HPI Vital Sign Vital Signs Vital Signs Date Time Temp Pulse Resp B/P (MAP) Pulse Ox O2 Delivery O2 Flow Rate FiO2 01/13/20 02:29 98.4 84 18 151/69 (96) 96 Room Air 98.4 Physical Exam PHYSICAL EXAM GENERAL: Propped up in bed, alert watching HEENT: Oral mucosa moist. NECK: Supple. LUNGS: Decreased breath sounds at the bases. HEART: S1, S2. ABDOMEN: Soft, nontender, no rebound, no guarding. EXTREMITIES: No edema, no cyanosis. DERMATOLOGIC: Warm, dry. No generalized rash. NEUROLOGIC: Alert, awake, somewhat confused, but answers questions appropriately. Hard of hearing. Labs Micro 01/11 Blood Culture - Preliminary, Resulted NO GROWTH AFTER 2 DAYS Objective Assessment Diarrhea, present on admission. Awaiting C. diff stool cultures. Leukocytosis. Pulmonary infiltrate could have a component of aspiration with nausea and vomiting. History of recent urinary tract infection, treated with Macrobid as outpatient prior to admission. History of Clostridium difficile remote past. Rheumatoid arthritis. Stool occult blood positive. Plan Plan of Care cont cefepime empiric doxycycline Probiotics f/u labs, c diff, stool cult maintain aspiration precautions COVID pending D/w nursing Feeling ok. Loose stool better No F/C/S/SOA or much cough CT with ? bronchopulm pneumonia WBC better Try to wean abx soon Attending Co-Sign Attending Co-Sign The patient was seen and interviewed as well as examined at the bedside. The chart was reviewed. The case was discussed. Agree with the plan of care. TIMA ARANA APRN Jan 13, 2020 08:56 MIKE DOUGHERTY MD Jan 13, 2020 13:06
[2020-01-13] MEDS: PANTOPRAZOLE IV PUSH 40 MG VIAL. IVP SCH (09:05)
[2020-01-13] MEDS: ACETAMINOPHEN 325 MG TABLET. PO SCH ×2 (09:05→11:58)
[2020-01-13] MEDS: CALCIUM CARB/VIT D3 500/200 TABLET. PO SCH ×2 (09:05→20:24)
[2020-01-13] MEDS: LACTOBACILLUS RHAMNOSUS GG 1 CAPSULE. PO SCH ×2 (09:05→20:24)
[2020-01-13] MEDS: DOXYCYCLINE HYCLATE 100 MG TABLET PO SCH ×2 (09:05→20:24)
[2020-01-13] MEDS: CEFEPIME HCL IV Push 1 GM VIAL. IVP SCH ×2 (09:51→20:24)
--- NOTE | 2020-01-13 10:46 | PDOC ---
PROGRESS NOTES Chief Complaint Chief Complaint A/P: Acute toxic encephalopathy - 2/2 sepsis SEPSIS Diarrhea - R/O C-DIFF. based on stool burden this may be overflow fecal incontinence. Will f/u on c. diff CAP (community acquired pneumonia) - Small bilateral pleural effusions and findings of bronchopneumonia involving the medial right middle lobe and posterior left lower lobe. Bibasalar infiltrates or atelectasis posteriorly at the costophrenic angles bilaterally. Small bilateral pleural effusions. Small hiatal hernia. Diverticulosis without evidence of diverticulitis. Large amount of fecal material in the colon. HYPOTHYROID STATE ON REPLACEMENT History of Present Illness History of Present Illness Ms Raymond is an 89 yo F w/ PMHx hypothyroidism, osteoporosis, basal cell carcinoma of the skin, h/o C. diff, DJD, RA was brought to the ER on 01/11/2020 with complaints of diarrhea, which began on the day of admission. tug hand had seen her for sudden onset of urinary incontinence and confusion, diagnosed with UTI and was prescribed Macrobid. CT of the abdomen and pelvis w/o showed bibasilar infiltrate or atelectasis posterior at the costophrenic angle bilaterally, small bilateral pleural effusions, small hiatal hernia, diverticulosis without evidence of diverticulitis as well as large amount of fecal material in the colon. 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 Mild compression deformity at T11 vertebral body. Given a 2019 novel coronavirus C. diff pending, stool culture negative thus far. She is feeling better, only 3 loose BM in the past 24 hours. No further cough. Still confused. She is talking on the phone, but it is not on. Vitals Vitals Vital Signs Date Time Temp Pulse Resp B/P (MAP) Pulse Ox O2 Delivery O2 Flow Rate FiO2 01/13/20 07:00 98.8 85 20 153/64 (93) 96 Room Air 98.8 Physical Exam Physical Exam GENERAL: Propped up in bed, alert watching HEENT: Oral mucosa moist. NECK: Supple. LUNGS: Decreased breath sounds at the bases. HEART: S1, S2. ABDOMEN: Soft, nontender, no rebound, no guarding. EXTREMITIES: No edema, no cyanosis. DERMATOLOGIC: Warm, dry. No generalized rash. NEUROLOGIC: Alert, awake, somewhat confused, but answers questions appropriately. Hard of hearing. General: Alert, Cooperative, No acute distress Lungs: Clear, Other Abdomen: Normal bowel sounds, Soft Extremities: No cyanosis Comment Review of Relevant I have reviewed the following items rachel (where applicable) has been applied. Labs Laboratory Tests Test 01/12/20 04:48 White Blood Count 9.9 x10^3/uL (4.0-11.0) Red Blood Count 3.25 x10^6/uL (3.50-5.40) Hemoglobin 10.0 g/dL (12.0-15.5) Hematocrit 30.3 % (36.0-47.0) Mean Corpuscular Volume 93 fL (79-100) Mean Corpuscular Hemoglobin 31 pg (25-35) Mean Corpuscular Hemoglobin Concent 33 g/dL (31-37) Red Cell Distribution Width 12.8 % (11.5-14.5) Platelet Count 302 x10^3/uL (140-400) Neutrophils (%) (Auto) 73 % (31-73) Lymphocytes (%) (Auto) 15 % (24-48) Monocytes (%) (Auto) 11 % (0-9) Eosinophils (%) (Auto) 1 % (0-3) Basophils (%) (Auto) 1 % (0-3) Neutrophils # (Auto) 7.3 x10^3/uL (1.8-7.7) Lymphocytes # (Auto) 1.5 x10^3/uL (1.0-4.8) Monocytes # (Auto) 1.0 x10^3/uL (0.0-1.1) Eosinophils # (Auto) 0.1 x10^3/uL (0.0-0.7) Basophils # (Auto) 0.0 x10^3/uL (0.0-0.2) Sodium Level 139 mmol/L (136-145) Potassium Level 3.6 mmol/L (3.5-5.1) Chloride Level 104 mmol/L (98-107) Carbon Dioxide Level 24 mmol/L (21-32) Anion Gap 11 (6-14) Blood Urea Nitrogen 17 mg/dL (7-20) Creatinine 0.7 mg/dL (0.6-1.0) Estimated GFR (Cockcroft-Gault) 79.0 BUN/Creatinine Ratio 24 (6-20) Glucose Level 91 mg/dL (70-99) Calcium Level 8.0 mg/dL (8.5-10.1) Iron Level 20 ug/dL (50-170) Total Iron Binding Capacity 202 ug/dL (250-450) Iron Saturation 10 % (15-34) Total Bilirubin 0.4 mg/dL (0.2-1.0) Aspartate Amino Transf (AST/SGOT) 28 U/L (15-37) Alanine Aminotransferase (ALT/SGPT) 22 U/L (14-59) Alkaline Phosphatase 68 U/L (46-116) Total Protein 5.4 g/dL (6.4-8.2) Albumin 2.2 g/dL (3.4-5.0) Albumin/Globulin Ratio 0.7 (1.0-1.7) Microbiology 01/11/20 Stool Culture - Final, Resulted 01/11/20 Stool Culture Result 1 (RAÚL) - Final, Resulted 01/11/20 Campylobacter Antigen Assay - Preliminary, Resulted 01/11/20 Campylobactor Result 1 - Preliminary, Resulted 01/11/20 Shiga Toxin Test, Resulted Pending 01/11/20 Blood Culture - Preliminary, Resulted NO GROWTH AFTER 2 DAYS Medications Current Medications Sodium Chloride 500 ml @ 500 mls/hr 1X ONCE IV Last administered on 01/11/20at 00:11; Start 01/10/20 at 23:15; Stop 01/11/20 at 00:14; Status DC Levofloxacin/ Dextrose 150 ml @ 100 mls/hr 1X ONCE IV Last administered on 01/11/20at 01:57; Start 01/11/20 at 01:00; Stop 01/11/20 at 02:29; Status DC Cefepime HCl (Maxipime) 2 gm 1X ONCE IVP Last administered on 01/11/20at 01:56; Start 01/11/20 at 01:15; Stop 01/11/20 at 01:16; Status DC Sodium Chloride 1,000 ml @ 125 mls/hr 1X ONCE IV Last administered on 01/11/20at 02:07; Start 01/11/20 at 01:45; Stop 01/11/20 at 09:44; Status DC Acetaminophen (Tylenol) 650 mg BIDACBL PO Last administered on 01/13/20at 09:05; Start 01/11/20 at 11:30 Calcium/Vitamin D (Oscal D 500mg/ 200uts) 1 tab BID PO Last administered on 01/13/20 09:05; Start 01/11/20 at 09:00 Levothyroxine Sodium (Synthroid) 75 mcg DAILY06 PO Last administered on 01/13/20at 05:37; Start 01/11/20 at 10:30 Lactobacillus Rhamnosus (Culturelle) 1 cap BID PO Last administered on 01/13/20at 09:05; Start 01/11/20 at 21:00 Sodium Chloride (Normal Saline Flush) 3 ml QSHIFT PRN IV AFTER MEDS AND BLOOD DRAWS; Start 01/11/20 at 11:30 Sodium Chloride 1,000 ml @ 55 mls/hr [id number] IV Last administered on 01/12/20 05:29; Start 01/11/20 at 11:18 Ondansetron HCl (Zofran) 4 mg PRN Q4HRS PRN IV NAUSEA/VOMITING Last administered on 01/11/20at 12:55; Start 01/11/20 at 11:30; Stop 01/12/20 at 11:03; Status DC Acetaminophen (Tylenol) 650 mg PRN Q4HRS PRN PO TEMP OVER 100.4F OR MILD PAIN Last administered on 01/12/20at 21:22; Start 01/11/20 at 11:30 Clonidine HCl (Catapres) 0.1 mg PRN Q6HRS PRN PO SBP>160 OR DBP>90; Start 01/11/20 at 11:30 Albuterol Sulfate (Ventolin Neb Soln) 2.5 mg PRN Q4HRS PRN NEB SHORTNESS OF BREATH; Start 01/11/20 at 11:30 Guaifenesin (Robitussin) 200 mg PRN Q4HRS PRN PO COUGH Last administered on 01/11/20at 15:42; Start 01/11/20 at 11:30 Enoxaparin Sodium (Lovenox 30mg Syringe) 30 mg Q24H SQ Last administered on 01/12/20at 11:50; Start 01/11/20 at 12:00 Ondansetron HCl (Zofran) 4 mg PRN Q4HRS PRN IVP NAUSEA/VOMITING; Start 01/11/20 at 12:45 Pantoprazole Sodium (PROTONIX VIAL for IV PUSH) 40 mg DAILYAC IVP Last administered on 01/13/20at 09:05; Start 01/11/20 at 16:30 Levofloxacin/ Dextrose 100 ml @ 100 mls/hr Q24H IV Last administered on 01/11/20at 17:41; Start 01/11/20 at 17:00; Stop 01/12/20 at 10:39; Status DC Cefepime HCl (Maxipime) 1 gm Q12HR IVP Last administered on 01/13/20at 09:51; Start 01/11/20 at 21:00 Doxycycline Hyclate (Vibra-Tab) 100 mg BID PO Last administered on 01/13/20 09:05; Start 01/12/20 at 21:00 Active Scripts Active Reported Tylenol (Acetaminophen) 325 Mg Tablet 2 Tab PO BIDACBL Oyster Shell Calcium +D Tablet (Calcium Carbonate/Vitamin D3) 1 Each Tablet 1 Each PO BID Synthroid (Levothyroxine Sodium) 75 Mcg Tablet 1 Tab PO DAILY Vitals/I & O Vital Sign - Last 24 Hours 01/12/20 01/12/20 01/12/20 01/12/20 11:00 15:00 19:00 20:00 Temp 98.0 97.9 98.8 98.0 97.9 98.8 Pulse 86 75 82 Resp 16 18 16 B/P (MAP) 134/60 (84) 124/81 (95) 121/63 (82) Pulse Ox 95 98 93 O2 Delivery Room Air Room Air Room Air Room Air 01/12/20 01/12/20 01/13/20 01/13/20 21:28 23:00 02:29 07:00 Temp 98.8 97.7 98.4 98.8 98.8 97.7 98.4 98.8 Pulse 82 75 84 85 Resp B/P (MAP) 121/63 (82) 145/71 (95) 151/69 (96) 153/64 (93) Pulse Ox 93 96 96 96 O2 Delivery Room Air Room Air Room Air Room Air Intake and Output 01/12/20 01/12/20 01/13/20 15:00 23:00 07:00 Intake Total 480 ml 500 ml 240 ml Balance 480 ml 500 ml 240 ml Hemodynamically unstable?: No Is patient in severe pain?: No Is NPO status required?: No TUCKER SAENZ MD Jan 13, 2020 10:46
[2020-01-13] MEDS: PSYLLIUM HUSK (SUGAR FREE) 1 PKT PACKET PO SCH (11:58)
[2020-01-13] MEDS: IV NORMAL SALINE 1000ML BAG 1,000 ML IV SCH (17:41)
[2020-01-13] MEDS: cloNIDine HCL 0.1 MG TABLET PO PRN (22:49)
[2020-01-14 02:47] VITALS: BP 140/61
[2020-01-14] MEDS: LEVOTHYROXINE 75 MCG TABLET PO SCH (05:40)
[2020-01-14 07:00] VITALS: BP 149/74
--- NOTE | 2020-01-14 08:46 | PDOC ---
Infectious Disease Note Subjective Subjective says daughter coming to pick her up No fevers/chills/SOA/diarrhea Vital Sign Vital Signs Vital Signs Date Time Temp Pulse Resp B/P (MAP) Pulse Ox O2 Delivery O2 Flow Rate FiO2 01/14/20 07:00 98.0 79 22 149/74 (99) 95 Room Air 98.0 Physical Exam PHYSICAL EXAM GENERAL: Propped up in bed, alert, appears comfortable HEENT: Oral mucosa moist. + hearing aid NECK: Supple. LUNGS: Decreased breath sounds at the bases. HEART: S1, S2. ABDOMEN: Soft, nontender, no rebound, no guarding. EXTREMITIES: No edema, no cyanosis. DERMATOLOGIC: Warm, dry. No generalized rash. NEUROLOGIC: Alert, somewhat confused, Labs Micro 01/11 Blood Culture - Preliminary, Resulted NO GROWTH AFTER 3 DAYS Objective Assessment Diarrhea, present on admission. improved Leukocytosis - improved Pulmonary infiltrate could have a component of aspiration with nausea and vomiting. CT with ? bronchopulm pneumonia History of recent urinary tract infection, treated with Macrobid as outpatient prior to admission. History of Clostridium difficile remote past. Rheumatoid arthritis. Stool occult blood positive. Plan Plan of Care cont cefepime and empiric doxycycline Probiotics C diff, stool cult pending maintain aspiration precautions COVID pending D/w nursing Clinically better and eating soft diet D/w Cefepime 01/10 Attending Co-Sign Attending Co-Sign The patient was seen and interviewed as well as examined at the bedside. The chart was reviewed. The case was discussed. Agree with the plan of care. TIMA ARANA APRN Jan 14, 2020 08:46 MIKE DOUGHERTY MD Jan 14, 2020 12:46
[2020-01-14] MEDS: LACTOBACILLUS RHAMNOSUS GG 1 CAPSULE. PO SCH ×2 (09:51→21:12)
[2020-01-14] MEDS: DOXYCYCLINE HYCLATE 100 MG TABLET PO SCH ×2 (09:51→21:12)
[2020-01-14] MEDS: ACETAMINOPHEN 325 MG TABLET. PO SCH ×2 (09:52→12:34)
[2020-01-14] MEDS: PANTOPRAZOLE IV PUSH 40 MG VIAL. IVP SCH (09:52)
[2020-01-14] MEDS: PSYLLIUM HUSK (SUGAR FREE) 1 PKT PACKET PO SCH (09:52)
[2020-01-14] MEDS: CEFEPIME HCL IV Push 1 GM VIAL. IVP SCH (09:52)
[2020-01-14] MEDS: CALCIUM CARB/VIT D3 500/200 TABLET. PO SCH ×2 (09:52→21:12)
[2020-01-14] MEDS: IV NORMAL SALINE 1000ML BAG 1,000 ML IV SCH (09:53)
--- NOTE | 2020-01-14 10:01 | PDOC ---
PROGRESS NOTES Chief Complaint Chief Complaint A/P: Acute toxic encephalopathy - 2/2 sepsis SEPSIS Diarrhea - R/O C-DIFF. based on stool burden this may be overflow fecal incontinence. Will f/u on c. diff CAP (community acquired pneumonia) - Small bilateral pleural effusions and findings of bronchopneumonia involving the medial right middle lobe and posterior left lower lobe. Bibasalar infiltrates or atelectasis posteriorly at the costophrenic angles bilaterally. Small bilateral pleural effusions. Small hiatal hernia. Diverticulosis without evidence of diverticulitis. Large amount of fecal material in the colon. HYPOTHYROID STATE ON REPLACEMENT History of Present Illness History of Present Illness Ms Raymond is an 89 yo F w/ PMHx hypothyroidism, osteoporosis, basal cell carcinoma of the skin, h/o C. diff, DJD, RA was brought to the ER on 01/11/2020 with complaints of diarrhea, which began on the day of admission. 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 CT of the abdomen and pelvis w/o showed bibasilar infiltrate or atelectasis posterior at the costophrenic angle bilaterally, small bilateral pleural effusions, small hiatal hernia, diverticulosis without evidence of diverticulitis as well as large amount of fecal material in the colon. 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 Mild compression deformity at T11 vertebral body. Given a 2019 novel coronavirus 01/12: C. diff pending, stool culture negative thus far. She is feeling better, o nly 3 loose BM in the past 24 hours. No further cough. Still confused. She is talking on the phone, but it is not on. Having multiple soft BMs. No CP or SOB. Still pretty confused. No fevers or hypoxia. Vitals Vitals Vital Signs Date Time Temp Pulse Resp B/P (MAP) Pulse Ox O2 Delivery O2 Flow Rate FiO2 01/14/20 07:00 98.0 79 22 149/74 (99) 95 Room Air 98.0 Physical Exam Physical Exam GENERAL: Propped up in bed, alert, appears comfortable HEENT: Oral mucosa moist. + hearing aid NECK: Supple. LUNGS: Decreased breath sounds at the bases. HEART: S1, S2. ABDOMEN: Soft, nontender, no rebound, no guarding. EXTREMITIES: No edema, no cyanosis. DERMATOLOGIC: Warm, dry. No generalized rash. NEUROLOGIC: Alert, somewhat confused, General: Alert, Cooperative, No acute distress Lungs: Clear, Other Abdomen: Normal bowel sounds, Soft Extremities: No cyanosis Comment Review of Relevant I have reviewed the following items rachel (where applicable) has been applied. Labs Microbiology 01/11/20 Stool Culture - Final, Resulted 01/11/20 Stool Culture Result 1 (RAÚL) - Final, Resulted 01/11/20 Campylobacter Antigen Assay - Preliminary, Resulted 01/11/20 Campylobactor Result 1 - Preliminary, Resulted 01/11/20 Shiga Toxin Test - Final, Resulted 01/11/20 Blood Culture - Preliminary, Resulted NO GROWTH AFTER 3 DAYS Medications Current Medications Sodium Chloride 500 ml @ 500 mls/hr 1X ONCE IV Last administered on 01/11/20at 00:11; Start 01/10/20 at 23:15; Stop 01/11/20 at 00:14; Status DC Levofloxacin/ Dextrose 150 ml @ 100 mls/hr 1X ONCE IV Last administered on 01/11/20at 01:57; Start 01/11/20 at 01:00; Stop 01/11/20 at 02:29; Status DC Cefepime HCl (Maxipime) 2 gm 1X ONCE IVP Last administered on 01/11/20at 01:56; Start 01/11/20 at 01:15; Stop 01/11/20 at 01:16; Status DC Sodium Chloride 1,000 ml @ 125 mls/hr 1X ONCE IV Last administered on 01/11/20at 02:07; Start 01/11/20 at 01:45; Stop 01/11/20 at 09:44; Status DC Acetaminophen (Tylenol) 650 mg BIDACBL PO Last administered on 01/14/20at 09:52; Start 01/11/20 at 11:30 Calcium/Vitamin D (Oscal D 500mg/ 200uts) 1 tab BID PO Last administered on 01/14/20at 09:52; Start 01/11/20 at 09:00 Levothyroxine Sodium (Synthroid) 75 mcg DAILY06 PO Last administered on 01/14/20at 05:40; Start 01/11/20 at 10:30 Lactobacillus Rhamnosus (Culturelle) 1 cap BID PO Last administered on 01/14/20at 09:51; Start 01/11/20 at 21:00 Sodium Chloride (Normal Saline Flush) 3 ml QSHIFT PRN IV AFTER MEDS AND BLOOD DRAWS; Start 01/11/20 at 11:30 Sodium Chloride 1,000 ml @ 55 mls/hr [id number] IV Last administered on 01/14/20 09:53; Start 01/11/20 at 11:18 Ondansetron HCl (Zofran) 4 mg PRN Q4HRS PRN IV NAUSEA/VOMITING Last administered on 01/11/20 12:55; Start 01/11/20 at 11:30; Stop 01/12/20 at 11:03; Status DC Acetaminophen (Tylenol) 650 mg PRN Q4HRS PRN PO TEMP OVER 100.4F OR MILD PAIN Last administered on 01/12/20 21:22; Start 01/11/20 at 11:30 Clonidine HCl (Catapres) 0.1 mg PRN Q6HRS PRN PO SBP>160 OR DBP>90 Last administered on 01/13/20at 22:49; Start 01/11/20 at 11:30 Albuterol Sulfate (Ventolin Neb Soln) 2.5 mg PRN Q4HRS PRN NEB SHORTNESS OF BREATH; Start 01/11/20 at 11:30 Guaifenesin (Robitussin) 200 mg PRN Q4HRS PRN PO COUGH Last administered on 01/11/20at 15:42; Start 01/11/20 at 11:30 Enoxaparin Sodium (Lovenox 30mg Syringe) 30 mg Q24H SQ Last administered on 01/12/20 11:50; Start 01/11/20 at 12:00; Stop 01/13/20 at 11:11; Status DC Ondansetron HCl (Zofran) 4 mg PRN Q4HRS PRN IVP NAUSEA/VOMITING; Start 01/11/20 at 12:45 Pantoprazole Sodium (PROTONIX VIAL for IV PUSH) 40 mg DAILYAC IVP Last administered on 01/14/20 09:52; Start 01/11/20 at 16:30 Levofloxacin/ Dextrose 100 ml @ 100 mls/hr Q24H IV Last administered on 01/11/20at 17:41; Start 01/11/20 at 17:00; Stop 01/12/20 at 10:39; Status DC Cefepime HCl (Maxipime) 1 gm Q12HR IVP Last administered on 01/14/20 09:52; Start 01/11/20 at 21:00 Doxycycline Hyclate (Vibra-Tab) 100 mg BID PO Last administered on 01/14/20 09:51; Start 01/12/20 at 21:00 Psyllium Hydrophilic Mucilloid (Metamucil Fiber Packet) 1 pkt DAILY PO Last administered on 01/14/20at 09:52; Start 01/13/20 at 10:45 Active Scripts Active Reported Tylenol (Acetaminophen) 325 Mg Tablet 2 Tab PO BIDACBL Oyster Shell Calcium +D Tablet (Calcium Carbonate/Vitamin D3) 1 Each Tablet 1 Each PO BID Synthroid (Levothyroxine Sodium) 75 Mcg Tablet 1 Tab PO DAILY Vitals/I & O Vital Sign - Last 24 Hours 01/13/20 01/13/20 01/13/20 01/13/20 11:04 15:00 19:00 20:00 Temp 98.0 98.2 98.2 98.0 98.2 98.2 Pulse 75 72 77 Resp 20 18 B/P (MAP) 139/66 (90) 145/89 (107) 151/76 (101) Pulse Ox 93 95 O2 Delivery Room Air Room Air Room Air Room Air 01/13/20 01/13/20 01/13/20 01/14/20 22:48 22:49 23:58 02:47 Temp 98.4 98.3 98.4 98.3 Pulse 71 71 74 72 Resp 20 16 B/P (MAP) 167/73 (104) 167/73 116/57 (76) 140/61 (87) Pulse Ox 96 96 O2 Delivery Room Air Room Air 01/14/20 07:00 Temp 98.0 98.0 Pulse 79 Resp 22 B/P (MAP) 149/74 (99) Pulse Ox 95 O2 Delivery Room Air Intake and Output 01/13/20 01/13/20 01/14/20 15:00 23:00 07:00 Intake Total 590 ml 240 ml 180 ml Output Total 200 ml 150 ml Balance 390 ml 90 ml 180 ml Hemodynamically unstable?: No Is patient in severe pain?: No Is NPO status required?: No TUCKER SAENZ MD Jan 14, 2020 10:01
[2020-01-14 11:00] VITALS: BP 122/67
[2020-01-14 15:00] VITALS: BP 147/67
[2020-01-14 19:50] VITALS: BP 134/67
[2020-01-14 22:59] VITALS: BP 160/74
[2020-01-15] VITALS (8 sets, daily range): BP systolic 117–166; BP diastolic 65–78
[2020-01-15] MEDS: IV NORMAL SALINE 1000ML BAG 1,000 ML IV SCH ×2 (04:12→20:02)
[2020-01-15] MEDS: LEVOTHYROXINE 75 MCG TABLET PO SCH (05:49)
[2020-01-15] MEDS: LACTOBACILLUS RHAMNOSUS GG 1 CAPSULE. PO SCH ×2 (08:25→20:02)
[2020-01-15] MEDS: ACETAMINOPHEN 325 MG TABLET. PO SCH ×2 (08:25→12:51)
[2020-01-15] MEDS: DOXYCYCLINE HYCLATE 100 MG TABLET PO SCH ×2 (08:25→20:02)
[2020-01-15] MEDS: CALCIUM CARB/VIT D3 500/200 TABLET. PO SCH ×2 (08:25→20:02)
[2020-01-15] MEDS: PSYLLIUM HUSK (SUGAR FREE) 1 PKT PACKET PO SCH (08:25)
[2020-01-15] MEDS: PANTOPRAZOLE IV PUSH 40 MG VIAL. IVP SCH (08:26)
--- NOTE | 2020-01-15 08:44 | PDOC ---
Infectious Disease Note Subjective Subjective Feeling well Had a great breakfast No fevers/chills/SOA/diarrhea ROS ROS o/w neg Vital Sign Vital Signs Vital Signs Date Time Temp Pulse Resp B/P (MAP) Pulse Ox O2 Delivery O2 Flow Rate FiO2 01/15/20 08:30 98.5 89 16 166/76 (106) 90 Room Air 98.5 Physical Exam PHYSICAL EXAM GENERAL: Propped up in bed, alert, appears comfortable - smiling and looks well HEENT: Oral mucosa moist. + hearing aid NECK: Supple. LUNGS: CTA HEART: S1, S2. ABDOMEN: Soft, nontender, no rebound, no guarding. EXTREMITIES: No edema, no cyanosis. DERMATOLOGIC: Warm, dry. No generalized rash. NEUROLOGIC: Alert, pleasant and moves all extremities, somewhat confused, Labs Micro Microbiology 01/11/20 Stool Culture - Preliminary, Resulted 01/11/20 Stool Culture Result 1 (RAÚL) - Preliminary, Resulted 01/11/20 Campylobacter Antigen Assay - Preliminary, Resulted 01/11/20 Campylobactor Result 1 - Preliminary, Resulted 01/11/20 Shiga Toxin Test - Final, Resulted 01/11/20 Blood Culture - Preliminary, Resulted NO GROWTH AFTER 4 DAYS Objective Assessment Diarrhea, present on admission. improved Leukocytosis - improved Pulmonary infiltrate could have a component of aspiration with nausea and vomiting. CT with ? bronchopulm pneumonia History of recent urinary tract infection, treated with Macrobid as outpatient prior to admission. History of Clostridium difficile remote past. Rheumatoid arthritis. Stool occult blood positive. Plan Plan of Care Discont cefepime 01/10 - 01/13 Still on empiric doxycycline Probiotics C diff, stool cult pending maintain aspiration precautions COVID pending D/w nursing MIKE DOUGHERTY MD Jan 15, 2020 08:44
--- NOTE | 2020-01-15 09:25 | PDOC ---
Subjective: Subjective: Says breakfast is great, denies pain. Objective: Objective: D/w nurse - soft stool this morning. Vital Signs: Vital Signs Date Time Temp Pulse Resp B/P (MAP) Pulse Ox O2 Delivery O2 Flow Rate FiO2 01/15/20 08:30 98.5 89 16 166/76 (106) 90 Room Air 98.5 Labs: STOOL CULTURE Preliminary Preliminary report STOOL CULT RES 1 Preliminary Comment Microbiological testing to rule out the presence of possible pathogens is in progress. SHELLEYY Preliminary Preliminary report CAMPY RES 1 Preliminary Comment No Campylobacter species isolated. SHIGA TOXIN Final Negative BLOOD CULTURE Preliminary NO GROWTH AFTER 4 DAYS PE: GEN: NAD, sitting up in bed LUNGS: clear anteriorly HEART: RRR ABD: S/ND/NT NEURO/PSYCH: awake and alert, forgetful A/P: Abnormal chest imaging, r/o COVID-19 (pending) H/o C Diff Anemia - iron deficient/chronic illness, +Hemoccult - no obvious bleeding -- PO PPI. Hemodynamically unstable?: No Is patient in severe pain?: No Is NPO status required?: No CRISTINE FLORES Jan 15, 2020 09:25
--- NOTE | 2020-01-15 11:38 | PDOC ---
[facility] PROGRESS NOTE Chief Complaint Chief Complaint Toxic encephalopathy Sepsis Diarrhea Community acquired pneumonia rule out Covid 19 Bibasilar infiltrates History diverticulosis Hypothyroidism History of Present Illness History of Present Illness [id number] Patient seen and examined in the ICU I used full respiratory and contact isolation precautions Chart reviewed Discussed with RN Ms Raymond is an 89 yo F w/ PMHx hypothyroidism, osteoporosis, basal cell carcinoma of the skin, h/o C. diff, DJD, RA was brought to the ER on 01/11/2020 with complaints of diarrhea, which began on the day of admission. hostage negotiator had seen her for sudden onset of urinary incontinence and c onfusion, diagnosed with UTI and was prescribed Macrobid. CT of the abdomen and pelvis w/o showed bibasilar infiltrate or atelectasis posterior at the costophrenic angle bilaterally, small bilateral pleural effusions, small hiatal hernia, diverticulosis without evidence of diverticulitis as well as large amount of fecal material in the colon. 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 Mild compression deformity at T11 vertebral body. Given a 2019 novel coronavirus 01/12: C. diff pending, stool culture negative thus far. She is feeling better, only 3 loose BM in the past 24 hours. No further cough. Still confused. She is talking on the phone, but it is not on. Having multiple soft BMs. No CP or SOB. Still pretty confused. No fevers or hypoxia. Vitals/I&O Vitals/I&O: Vital Signs Date Time Temp Pulse Resp B/P (MAP) Pulse Ox O2 Delivery O2 Flow Rate FiO2 01/15/20 08:30 98.5 89 16 166/76 (106) 90 Room Air 98.5 I & O 01/14/20 01/14/20 01/15/20 15:00 23:00 07:00 Intake Total 480 ml 340 ml 1250 ml Output Total 150 ml 150 ml Balance 330 ml 190 ml 1250 ml Physical Exam Physical Exam: GENERAL: Propped up in bed, alert, appears comfortable - smiling and looks well HEENT: Oral mucosa moist. + hearing aid NECK: Supple. LUNGS: CTA HEART: S1, S2. ABDOMEN: Soft, nontender, no rebound, no guarding. EXTREMITIES: No edema, no cyanosis. DERMATOLOGIC: Warm, dry. No generalized rash. NEUROLOGIC: Alert, pleasant and moves all extremities, somewhat confused, General: Alert, Cooperative, No acute distress Lungs: Clear, Other Abdomen: Normal bowel sounds, Soft Extremities: No cyanosis Assessment and Plan Assessmemt and Plan Acute toxic encephalopathy - 2/2 sepsis SEPSIS Diarrhea - R/O C-DIFF. based on stool burden this may be overflow fecal incontinence. Will f/u on c. diff CAP (community acquired pneumonia) - Small bilateral pleural effusions and findings of bronchopneumonia involving the medial right middle lobe and posterior left lower lobe. Bibasalar infiltrates or atelectasis posteriorly at the costophrenic angles bilaterally. Small bilateral pleural effusions. Small hiatal hernia. Diverticulosis without evidence of diverticulitis. Large amount of fecal material in the colon. HYPOTHYROID STATE ON REPLACEMENT ICU monitoring Home meds DVT prophylaxis Full code Comment Review of Relevant I have reviewed the following items rachel (where applicable) has been applied. Hemodynamically unstable?: No Is patient in severe pain?: No Is NPO status required?: No JAX PITTMAN III DO Jan 15, 2020 11:38
[2020-01-15] MEDS: cloNIDine HCL 0.1 MG TABLET PO PRN (12:51)
--- NOTE | 2020-01-15 15:36 | NUR ---
SS following up with discharge planning. COVID19 test pending results at this time. SS will continue to follow for discharge planning.
[2020-01-15] MEDS: guaiFENesin ORAL 200 MG/10 ML LIQUID. PO PRN (20:01)
[2020-01-16 03:08] VITALS: BP 158/76
[2020-01-16] MEDS: LEVOTHYROXINE 75 MCG TABLET PO SCH (05:48)
[2020-01-16 07:00] VITALS: BP 170/74
[2020-01-16] MEDS ORDERED: PANTOPRAZOLE 40 MG TABLET.DR. PO SCH (07:30)
[2020-01-16 09:00] VITALS: BP 127/59
[2020-01-16] MEDS: ACETAMINOPHEN 325 MG TABLET. PO SCH ×2 (09:00→13:08)
[2020-01-16] MEDS: DOXYCYCLINE HYCLATE 100 MG TABLET PO SCH (09:00)
[2020-01-16] MEDS: CALCIUM CARB/VIT D3 500/200 TABLET. PO SCH (09:00)
[2020-01-16] MEDS: LACTOBACILLUS RHAMNOSUS GG 1 CAPSULE. PO SCH (09:00)
[2020-01-16] MEDS: PSYLLIUM HUSK (SUGAR FREE) 1 PKT PACKET PO SCH (09:00)
[2020-01-16 10:40] VITALS: BP 152/67
--- NOTE | 2020-01-16 11:06 | NUR ---
IP: Pt is COVID negative and may be removed from isolation and moved off the PUI unit.
--- NOTE | 2020-01-16 11:13 | PDOC ---
Infectious Disease Note Subjective Subjective Feeling well Had a good breakfast and waiting for lunch No fevers/chills/SOA/diarrhea Vital Sign Vital Signs Vital Signs Date Time Temp Pulse Resp B/P (MAP) Pulse Ox O2 Delivery O2 Flow Rate FiO2 01/16/20 10:40 97.5 83 16 152/67 (95) 97 Room Air 97.5 Physical Exam PHYSICAL EXAM GENERAL: Propped up in bed, alert, appears comfortable - smiling and looks well HEENT: Oral mucosa moist. + hearing aid NECK: Supple. LUNGS: CTA HEART: S1, S2. ABDOMEN: Soft, nontender, no rebound, no guarding. EXTREMITIES: No edema, no cyanosis. DERMATOLOGIC: Warm, dry. No generalized rash. NEUROLOGIC: Alert, pleasant and moves all extremities, somewhat confused, Labs Micro Microbiology 01/11/20 Stool Culture - Preliminary, Resulted 01/11/20 Stool Culture Result 1 (RAÚL) - Preliminary, Resulted 01/11/20 Campylobacter Antigen Assay - Preliminary, Resulted 01/11/20 Campylobactor Result 1 - Preliminary, Resulted 01/11/20 Shiga Toxin Test - Final, Resulted 01/11/20 Blood Culture - Preliminary, Resulted NO GROWTH AFTER 4 DAYS Objective Assessment Diarrhea, present on admission. improved Leukocytosis - improved Pulmonary infiltrate could have a component of aspiration with nausea and vomiting. CT with ? bronchopulm pneumonia - Davison - neg History of recent urinary tract infection, treated with Macrobid as outpatient prior to admission. History of Clostridium difficile remote past. Rheumatoid arthritis. Stool occult blood positive. Plan Plan of Care Discont cefepime 01/10 - 01/13 Still on empiric doxycycline 01/11 - Levoflox 01/10 Ok to d/c on Doxy through 01/16 D/w nursing MIKE DOUGHERTY MD Jan 16, 2020 11:13
--- NOTE | 2020-01-16 11:13 | NUR ---
SS following up with discharge planning. SS discussed with RN and physician. COVID19 test negative. PT/OT recommending senior care unit. SS discussed with pt's family. Pt's family requesting for pt to go to [facility], ; fax [phone]. SS phoned and faxed referral to [facility]. SS will await acceptance decision and will proceed accordingly. Pt's RN notified.
--- NOTE | 2020-01-16 11:37 | SNU/HH DC ---
DISCHARGE ORDERS DISCHARGE INFORMATION: CONDITION ON DISCHARGE: Stable CODE STATUS: Code Status: Full RETIREMENT: SNF STAY <30 DAYS: Yes HOSPICE: HOSPICE: No HOSPICE EVAL & TREAT: No LTAC: ADMIT TO LTAC: No POST DISCHARGE ORDERS: ACTIVITY ORDERS: Activity as tolerated WEIGHT BEARING STATUS: As tolerated DIET AFTER DISCHARGE: Cardiac TREATMENT/EQUIPMENT ORDERS: Physical Therapy For: Evalulation/Treatment Occupational Therapy For: Evaluation/Treatment Speech Language Pathology For: Evaluation/Treatment DISCHARGE MEDICATIONS: Home Meds Reported Medications Acetaminophen (TYLENOL) 325 Mg Tablet, 2 TAB PO BIDACBL, #30 TAB 01/19/18 Calcium Carbonate/Vitamin D3 (OYSTER SHELL CALCIUM +D TABLET) 1 Each Tablet, 1 EACH PO BID 06/01/14 Levothyroxine Sodium (SYNTHROID) 75 Mcg Tablet, 1 TAB PO DAILY, #30 TAB 5 Refills 06/01/14 JAX PITTMAN III DO Jan 16, 2020 11:36
--- NOTE | 2020-01-16 11:42 | PDOC ---
[facility] [facility] PROGRESS NOTE Chief Complaint Chief Complaint Toxic encephalopathy Sepsis Diarrhea Community acquired pneumonia rule out Covid 19 Bibasilar infiltrates History diverticulosis Hypothyroidism History of Present Illness History of Present Illness [id number] Patient seen and examined Discussed with Dr. Morrissey Her Covid 19 testing is negative We'll discharge to longterm [id number] Patient seen and examined in the ICU I used full respiratory and contact isolation precautions Chart reviewed Discussed with RN Ms Raymond is an 89 yo F w/ PMHx hypothyroidism, osteoporosis, basal cell carcinoma of the skin, h/o C. diff, DJD, RA was brought to the ER on 01/11/2020 with complaints of diarrhea, which began on the day of admission. policy officer had seen her for sudden onset of urinary incontinence and confusion, diagnosed with UTI and was prescribed Macrobid. CT of the abdomen and pelvis w/o showed bibasilar infiltrate or atelectasis posterior at the costophrenic angle bilaterally, small bilateral pleural effusions, small hiatal hernia, diverticulosis without evidence of diverticulitis as well as large amount of fecal material in the colon. 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 Mild compression deformity at T11 vertebral body. Given a 2019 novel coronavirus 01/12: C. diff pending, stool culture negative thus far. She is feeling better, only 3 loose BM in the past 24 hours. No further cough. Still confused. She is talking on the phone, but it is not on. Having multiple soft BMs. No CP or SOB. Still pretty confused. No fevers or hypoxia. Vitals/I&O Vitals/I&O: Vital Signs Date Time Temp Pulse Resp B/P (MAP) Pulse Ox O2 Delivery O2 Flow Rate FiO2 01/16/20 10:40 97.5 83 16 152/67 (95) 97 Room Air 97.5 I & O 01/15/20 01/15/20 01/16/20 15:00 23:00 07:00 Intake Total 600 ml 500 ml 200 ml Output Total 501 ml 700 ml Balance 600 ml -1 ml -500 ml Physical Exam Physical Exam: GENERAL: Propped up in bed, alert, appears comfortable - smiling and looks well HEENT: Oral mucosa moist. + hearing aid NECK: Supple. LUNGS: CTA HEART: S1, S2. ABDOMEN: Soft, nontender, no rebound, no guarding. EXTREMITIES: No edema, no cyanosis. DERMATOLOGIC: Warm, dry. No generalized rash. NEUROLOGIC: Alert, pleasant and moves all extremities, somewhat confused, General: Alert, Cooperative, No acute distress Lungs: Clear, Other Abdomen: Normal bowel sounds, Soft Extremities: No cyanosis Assessment and Plan Assessmemt and Plan Her Covid 19 testing is negative We'll discharge to longterm See discharge summary dictation Comment Review of Relevant I have reviewed the following items rachel (where applicable) has been applied. Medications: Current Medications Medications (Trade) Dose Ordered Sig/Fam Route PRN Reason Start Time Stop Time Status Last Admin Dose Admin Pantoprazole Sodium (Protonix) 40 mg DAILYAC PO 01/16/20 07:30 01/16/20 09:00 Hemodynamically unstable?: No Is patient in severe pain?: No Is NPO status required?: No JAX PITTMAN III DO Jan 16, 2020 11:42
--- NOTE | 2020-01-16 12:46 | PDOC ---
Subjective: Subjective: Wonders when lunch is coming around. Objective: Objective: No GI concerns per nurse. SNU eval. Vital Signs: Vital Signs Date Time Temp Pulse Resp B/P (MAP) Pulse Ox O2 Delivery O2 Flow Rate FiO2 01/16/20 10:40 97.5 83 16 152/67 (95) 97 Room Air 97.5 PE: GEN: NAD LUNGS: CTAB HEART: RRR ABD: S/ND/NT NEURO/PSYCH: appropriate A/P: Abnormal chest imaging, r/o COVID-19 (PCR neg) H/o C Diff - no longer having diarrhea, C Diff not collected ACD/EFRAÍN -- Stable from our standpoint. Hemodynamically unstable?: No Is patient in severe pain?: No Is NPO status required?: No CRISTINE FLORES Jan 16, 2020 12:46
--- NOTE | 2020-01-16 13:33 | DS ---
DATE OF DISCHARGE: 01/16/2020 ADMISSION DIAGNOSES: Pneumonia and diarrhea. DISCHARGE DIAGNOSES: Resolving bilateral pneumonia, resolving diarrhea (she was COVID-19 testing negative). CONSULTS: Pulmonary Medicine and GI. PROCEDURES: None. HOSPITAL COURSE: The patient is a pleasant elderly female, who presented with some nausea, vomiting, some diarrhea and had some shortness of breath. Chest x-ray showed pneumonia. She was admitted. The above consults were obtained. We have been giving her IV antibiotics, breathing treatments, oxygen. COVID-19 testing was negative. Today, I spoke with Dr. Ovalle about the case and examined the patient. PHYSICAL EXAMINATION: HEART: Tones are normal. LUNGS: Clear. ABDOMEN: Soft. EXTREMITIES: No edema. SKIN: No rashes. We planned to discharge to snf. DISPOSITION: assisted. ACTIVITY: As tolerated. DIET: Low sodium. MEDICATIONS: Please see the MRAD. I did leave prescriptions for doxycycline and Protonix. We will resume her home meds. TOTAL TIME: 33 minutes. JAX PITTMAN DO DR: ALTON/marv JOB#: [id number] / [id number]
--- NOTE | 2020-01-16 13:54 | NUR ---
SS following up with discharge planning. Pt accepted at [facility], ; fax [phone]. Discharge orders phoned and faxed to [facility]. Pt will discharge today and go to [facility] between 1530 and 1600. [facility] to provide transportation. Pt, pt's daughter, and pt's RN notified.
--- NOTE | 2020-01-16 15:30 | NUR ---
Discharge Note: LUIS CARLOS THOMAS [address] Discharge instructions and discharge home medications reviewed with Other facility and a copy given. All questions have been answered and understanding verbalized. Personal belongings taken with patient: left hearing aid, glasses, dentures, and walker. The following instructions and handouts were given: doxycycline tablets Discontinued lines and drains: Peripheral IV intact. Patient discharged to Residential Facility with Self via Wheelchair
== END 2020-01-16 15:30 | DRG 871 ==
LOC: ER 22:26 → 6 SOUTH 01-11 01:25 → 1 WEST ICU 01-12 12:59 → 2 SOUTH 01-15 17:01
PROVIDERS: ADMIT Family Medicine; ATTEND Family Medicine
DX: A41.9 Sepsis, unspecified organism (principal); G92 Toxic encephalopathy; J18.0 Bronchopneumonia, unspecified organism; E03.9 Hypothyroidism, unspecified; M81.0 Age-related osteoporosis without current pathological fracture; M19.90 Unspecified osteoarthritis, unspecified site; M06.9 Rheumatoid arthritis, unspecified; M47.9 Spondylosis, unspecified; K44.9 Diaphragmatic hernia without obstruction or gangrene; K57.90 Diverticulosis of intestine, part unspecified, without perforation or abscess without bleeding; D50.9 Iron deficiency anemia, unspecified; M43.17 Spondylolisthesis, lumbosacral region; R32 Unspecified urinary incontinence; E86.0 Dehydration; Z87.440 Personal history of urinary (tract) infections; Z85.828 Personal history of other malignant neoplasm of skin; Z88.5 Allergy status to narcotic agent; Z88.0 Allergy status to penicillin; Z91.041 Radiographic dye allergy status; Z82.49 Family history of ischemic heart disease and other diseases of the circulatory system
CPT/HCPCS: 36415; 71250; 74176; 80053; 81001; 82274; 83540; 83550; 83605; 83690; 83735; 85007; 85025; 87040; 87045; 87635; 94760; 96361; 96365; 96375; C9113; J0692; J1650; J1956; J2405; J7030; J7040; 97535; 99285-25; G0378; U0002

== ENCOUNTER 2020-06-21 19:45 | Inpatient (IN) | payer MEDICARE ==
[~2020-06-21] VITALS: Ht 144.8 cm; Wt 40.4 kg
[~2020-06-21 19:45] MED LIST changes: -LEVO75TA PO; +LEVO75TA90 PO
--- NOTE | 2020-06-21 21:43 | PHYS DOC ---
Past Medical History Past Medical History: Hypothyroid, Other Additional Past Medical Histor: osteoporosis, basal cell carcinoma, Past Surgical History: , Other Additional Past Surgical Histo: skin cancer removal, fluid drainage from ear Smoking Status: Never Smoker Alcohol Use: None Drug Use: None General Adult EDM: Chief Complaint: LOWER BACK PAIN OR INJURY HPI: HPI: The history was obtained from the patient and daughter. Patient is a 89-year-old female with PMH hypothyroidism, arthritis who presents with a chief complaint of leg pain. Daughter states the patient's been complaining of gradual leg pain throughout the week. They state that she was seen by her primary care physician 5 days ago. She is noted to be constipated on x-ray imaging of her lumbar spine. Daughter has been trying anticonstipation medication at home. She notes a normal bowel movement earlier today. She stat es today the patient complained of inability to ambulate. She does use a walker at baseline. Daughter states that the patient complained of pain in her legs and back bilaterally whenever she tried to place weight on her legs. Denies falls or trauma. Denies history of peripheral arterial disease. Has tried Tylenol at home with minimal relief. Does note unilateral swelling to the right lower extremity. Denies any history of blood clot. Denies fevers. Denies syncope. States she does have full range of motion of her legs but it does cause some discomfort. Patient denies any urinary retention, stool incontinence, saddle anesthesia, history of IV drug use, or history of cancer. Review of Systems: Review of Systems: Constitutional: Denies fever or chills. [] Eyes: Denies change in visual acuity. [] HENT: Denies nasal congestion or sore throat. [] Respiratory: Denies cough or shortness of breath. [] Cardiovascular: Denies chest pain or edema. [] GI: Denies abdominal pain, nausea, vomiting, bloody stools or diarrhea. [] : Denies dysuria. [] Musculoskeletal: Positive for myalgias and arthralgias. Positive for back pain Integument: Denies rash. [] Neurologic: Denies headache, focal weakness or sensory changes. [] Endocrine: Denies polyuria or polydipsia. [] Lymphatic: Denies swollen glands. [] Psychiatric: Denies depression or anxiety. [] Heart Score: Risk Factors: Risk Factors: DM, Current or recent (<one month) smoker, HTN, HLP, family history of CAD, obesity. Risk Scores: Score 0 - 3: 2.5% MACE over next 6 weeks - Discharge Home Score 4 - 6: 20.3% MACE over next 6 weeks - Admit for Clinical Observation Score 7 - 10: 72.7% MACE over next 6 weeks - Early Invasive Strategies Allergies: Allergies: Allergies Coded Allergies Type Severity Reaction Last Updated Verified Iodinated Contrast Media Allergy Intermediate 06/01/14 Yes Penicillins Allergy Intermediate 06/01/14 Yes codeine Allergy Intermediate 06/01/14 Yes iodine Allergy Intermediate 06/01/14 Yes Physical Exam: PE: Constitutional: Well developed, well nourished, no acute distress, non-toxic appearance. [] HENT: Normocephalic, atraumatic, bilateral external ears normal, oropharynx moist, no oral exudates, nose normal. [] Eyes: PERRLA, EOMI, conjunctiva normal, no discharge. [] Neck: Normal range of motion, no tenderness, supple, no stridor. [] Cardiovascular:Heart rate regular rhythm, no murmur [] +2-4 DP pulses bilaterally Lungs & Thorax: Bilateral breath sounds clear to auscultation [] Abdomen: Bowel sounds normal, soft, no tenderness, no masses, no pulsatile masses. [] Skin: Warm, dry, no erythema, no rash. [] Back: No tenderness, no CVA tenderness. [] Extremities: + 5/5 motor strength in dorsiflexion and plantarflexion of the great toes bilaterally. Sensation intact between the webbing of the first and second toes bilaterally. Right lower extremity slightly more swollen than left lower extremity. No overlying erythema or warmth. Midline tenderness over the T10-L2 vertebra. Neurologic: Alert and oriented X 3, normal motor function, normal sensory function, no focal deficits noted. [] Psychologic: Affect normal, judgement normal, mood normal. [] Current Patient Data: Vital Signs: Vital Signs Date Time Temp Pulse Resp B/P (MAP) Pulse Ox O2 Delivery O2 Flow Rate FiO2 06/21/20 20:55 98.1 78 18 142/52 (82) 96 Room Air 98.1 EKG: EKG: [] Radiology/Procedures: Radiology/Procedures: [] [address] [place] [address] IMAGING REPORT Signed PATIENT: LUIS CARLOS THOMAS I ACCOUNT: [id number] : 1930 LOCATION: ER AGE: 89 SEX: F EXAM STATUS: REG ER ORD. PHYSICIAN: ZAID LERNER DO REASON: Back pain PROCEDURE: CT LUMBAR SPINE WO CONTRAST CT LUMBAR SPINE WO CONTRAST, CT PELVIS WO CONTRAST History:Reason: Back pain / Spl. Instructions: / History: Technique: Noncontrast CT was performed of the lumbar spine and pelvis. Multiplanar reconstructions were performed. Exposure: One or more of the following individualized dose reduction techniques were utilized for this examination: 1. Automated exposure control 2. Adjustment of the mA and/or kV according to patient size 3. Use of iterative reconstruction technique. Comparison: January 10, 2020 Findings: CT lumbar spine Moderate leftward curvature of the lumbar spine centered at L2-L3. Acute increased T11 compression fracture height loss with linear lucencies, may represent acute on chronic fracture. Mild retropulsion contributing to minimal canal narrowing. Moderate neuroforaminal narrowing T10-T11. Grade 1 anterolisthesis L5 on S1. Mild retrolisthesis L1 on L2 and L2 on L3. T12-L1: Small disc bulge. No canal or neuroforaminal narrowing. L1-L2: Retrolisthesis. Posterior disc osteophyte complex. Subarticular recess narrowing. No canal narrowing. Mild facet arthropathy. Moderate right and mild left neuroforaminal narrowing. L2-L3: Posterior disc osteophyte, complex. Mild retrolisthesis. Subacute recess narrowing. No canal narrowing. Mild facet arthropathy. Moderate right neuroforaminal narrowing. No left neuroforaminal narrowing. L3-L4: Disc bulge. Moderate facet arthropathy. Mild canal narrowing. Subarticular recess narrowing, left greater than right. Severe right and mild left neuroforaminal narrowing. L4-L5: Broad-based disc bulge. Advanced facet arthropathy. Moderate to severe canal narrowing. Moderate to severe right and severe left neuroforaminal narrowing. L5-S1: Anterolisthesis. Disc bulge. Advanced facet arthropathy. Subacute recess narrowing. Minimal canal narrowing. Severe left and moderate right neuroforaminal narrowing. CT pelvis: Normal alignment of the hips. No fracture. Mild bilateral hip degenerative changes. Chondrocalcinosis within the hip and pubic symphysis. Osteopenia. Mild sacroiliac degenerative changes bilaterally. Bilateral lower lobe atelectasis, left greater than right. Colonic diverticulosis. Moderate stool throughout the colon and rectum. Uterine calcifications. Impression: CT lumbar spine: 1. Increased T11 compression fracture with linear lucencies, may represent acute on chronic fracture. MRI can further evaluate as clinically warranted. 2. Advanced multilevel lumbar spondylosis with leftward curvature most prominent L4-L5. 3. L4-L5 moderate to severe canal narrowing. 4. Neuroforaminal narrowing most prominent right L3-L4, left L4-L5 and left L5-S1. CT pelvis: 1. No acute osseous abnormality. 2. Mild bilateral hip DJD. Electronically signed by: Emmanuel Rodrigues DO (06/21/2020 10:48 PM) [facility] DICTATED and SIGNED BY: EMMANUEL RODRIGUES DO DATE: 06/21/202247 Course & Med Decision Making: Course & Med Decision Making Pertinent Labs and Imaging studies reviewed. (See chart for details) Patient is a very pleasant 89-year-old female who presents with chief complaint of worsening back pain and bilateral leg pain. Initial vital signs unremarkable. Exam noted above. CT imaging does reveal acute versus subacute T11 compression fracture that appears worse than previous. Mild foraminal stenosis. Patient has no neurologic symptoms on exam. MRI will be deferred. Given her intractable pain, inability to ambulate, and new fracture findings I do feel she would benefit from hospitalization. Neurosurgery will be consulted. Hayden Disclaimer: Hayden Disclaimer: This electronic medical record was generated, in whole or in part, using a voice recognition dictation system. Departure Departure Impression: Primary Impression: Compression fracture of T11 vertebra Qualified Codes: S22.080A - Wedge compression fracture of t11-T12 vertebra, initial encounter for closed fracture Additional Impression: Intractable pain Disposition: 09 ADMITTED INPATIENT Condition: STABLE Referrals: LUIS CARLOS CARLIN APRN (PCP) Justicifation of Admission Dx: Justifications for Admission: Justification of Admission Dx: Yes Comments: acute to subactue t11 compression fx ZAID LERNER DO Jun 21, 2020 21:43
--- NOTE | 2020-06-21 22:32 | RAD ---
VENOUS LOWER EXTREMITY RIGHT History: Reason: RLE swelling / Spl. Instructions: / History: Comparison: None. Discussion: Multiple longitudinal and transverse high resolution real-time images of the venous system of right lower extremity were obtained with color and Doppler sampling. The common femoral, superficial femoral, popliteal and proximal calf veins are all patent and demonstrate normal flow and compressibility. Normal respiratory phasicity and augmentation is present. Impression: 1. No evidence of deep vein thrombosis. Electronically signed by: Emmanuel Rodrigues DO (06/21/2020 10:29 PM) [facility]
--- NOTE | 2020-06-21 22:38 | RAD ---
PELVIS History: Reason: b/l hip pain / Spl. Instructions: / History: Technique: AP view the pelvis. Comparison: None. Findings: Normal alignment of the hips. No fracture. Advanced lower lumbar spondylosis. Mild bilateral hip DJD with chondrocalcinosis. Osteopenia. Impression: 1. No acute osseous abnormality. 2. Advanced lower lumbar spondylosis. Electronically signed by: Emmanuel Rodrigues DO (06/21/2020 10:35 PM) [facility]
--- NOTE | 2020-06-21 22:51 | RAD ---
CT LUMBAR SPINE WO CONTRAST, CT PELVIS WO CONTRAST History:Reason: Back pain / Spl. Instructions: / History: Technique: Noncontrast CT was performed of the lumbar spine and pelvis. Multiplanar reconstructions were performed. Exposure: One or more of the following individualized dose reduction techniques were utilized for this examination: 1. Automated exposure control 2. Adjustment of the mA and/or kV according to patient size 3. Use of iterative reconstruction technique. Comparison: January 10, 2020 Findings: CT lumbar spine Moderate leftward curvature of the lumbar spine centered at L2-L3. Acute increased T11 compression fracture height loss with linear lucencies, may represent acute on chronic fracture. Mild retropulsion contributing to minimal canal narrowing. Moderate neuroforaminal narrowing T10-T11. Grade 1 anterolisthesis L5 on S1. Mild retrolisthesis L1 on L2 and L2 on L3. T12-L1: Small disc bulge. No canal or neuroforaminal narrowing. L1-L2: Retrolisthesis. Posterior disc osteophyte complex. Subarticular recess narrowing. No canal narrowing. Mild facet arthropathy. Moderate right and mild left neuroforaminal narrowing. L2-L3: Posterior disc osteophyte, complex. Mild retrolisthesis. Subacute recess narrowing. No canal narrowing. Mild facet arthropathy. Moderate right neuroforaminal narrowing. No left neuroforaminal narrowing. L3-L4: Disc bulge. Moderate facet arthropathy. Mild canal narrowing. Subarticular recess narrowing, left greater than right. Severe right and mild left neuroforaminal narrowing. L4-L5: Broad-based disc bulge. Advanced facet arthropathy. Moderate to severe canal narrowing. Moderate to severe right and severe left neuroforaminal narrowing. L5-S1: Anterolisthesis. Disc bulge. Advanced facet arthropathy. Subacute recess narrowing. Minimal canal narrowing. Severe left and moderate right neuroforaminal narrowing. CT pelvis: Normal alignment of the hips. No fracture. Mild bilateral hip degenerative changes. Chondrocalcinosis within the hip and pubic symphysis. Osteopenia. Mild sacroiliac degenerative changes bilaterally. Bilateral lower lobe atelectasis, left greater than right. Colonic diverticulosis. Moderate stool throughout the colon and rectum. Uterine calcifications. Impression: CT lumbar spine: 1. Increased T11 compression fracture with linear lucencies, may represent acute on chronic fracture. MRI can further evaluate as clinically warranted. 2. Advanced multilevel lumbar spondylosis with leftward curvature most prominent L4-L5. 3. L4-L5 moderate to severe canal narrowing. 4. Neuroforaminal narrowing most prominent right L3-L4, left L4-L5 and left L5-S1. CT pelvis: 1. No acute osseous abnormality. 2. Mild bilateral hip DJD. Electronically signed by: Emmanuel Rodrigues DO (06/21/2020 10:48 PM) [facility]
[2020-06-21] MEDS ORDERED: LIDOCAINE (700MG/PATCH) PATCH. TD ONE (23:45)
[2020-06-21] MEDS ORDERED: ONDANSETRON PF 4 MG/2 ML VIAL. IV PRN (23:45)
[2020-06-21] MEDS ORDERED: HYDROcodone/APAP 5/325MG 1 TAB TABLET PO ONE (23:45)
[2020-06-21] MEDS ORDERED: ACETAMINOPHEN 325 MG TABLET. PO PRN (23:45)
[2020-06-22 11:00] VITALS: BP 152/65
[2020-06-22] MEDS: HYDROcodone/APAP 5/325MG 1 TAB TABLET PO PRN (11:08)
--- NOTE | 2020-06-22 13:33 | PDOC1 ---
History and Physical Date of Service: DOS: DATE: 06/22/20 TIME: 13:18 Chief Complaint: Chief Complain: Back pain and weakness History of Present Illness: HPI: Patient is an 89-year-old female with past medical history of hypothyroidism and osteoporosis who presents with complaint of lower extremity pain and back pain. Most of the history is obtained from the daughter who states that she has been dealing with constipation for the past couple weeks and she was seen by her PCP and she was given bowel regimens. However after treatments patient still continued to complain of back pain and she also developed some weakness as well. Patient mainly gets around on a walker at her baseline however today patient has the inability ambulate and she is unable to maintain her own weight. Daughter denies any history of falls or trauma, peripheral vascular disease, fevers, shortness of breath, chest pain, abdominal pain, dysuria or incontinence, diarrhea, bloody stools. Apparently there is no red flags at this time. Past Medical/Surgical History: PMH/PSH: Past Medical History: Hypothyroid, osteoporosis, basal cell carcinoma, Past Surgical History: , skin cancer removal, fluid drainage from ear Allergies: Allergies: Coded Allergies: Iodinated Contrast Media (Verified Allergy, Intermediate, 06/01/14) Penicillins (Verified Allergy, Intermediate, 06/01/14) codeine (Verified Allergy, Intermediate, 06/01/14) iodine (Verified Allergy, Intermediate, 06/01/14) Family History: Family History: Reviewed and none reported Social History: Social History: Smoking Status: Never Smoker Alcohol Use: None Drug Use: None Current Medications: Current Medications Current Medications Acetaminophen/ Hydrocodone Bitart (Lortab 5/325) 1 tab 1X ONCE PO Last administered on 06/22/20at 00:12; Start 06/21/20 at 23:45; Stop 06/21/20 at 23:46; Status DC Lidocaine (Lidoderm) 1 patch 1X ONCE TD Last administered on 06/22/20at 00:12; Start 06/21/20 at 23:45; Stop 06/21/20 at 23:46; Status DC Ondansetron HCl (Zofran) 4 mg PRN Q8HRS PRN IV NAUSEA/VOMITING 1ST CHOICE; Start 06/21/20 at 23:45; Stop 06/22/20 at 23:44 Acetaminophen (Tylenol) 650 mg PRN Q4HRS PRN PO FEVER > 100.3'F Last administered on 06/22/20at 09:40; Start 06/21/20 at 23:45; Stop 06/22/20 at 23:44 Acetaminophen/ Hydrocodone Bitart (Lortab 5/325) 1 tab PRN Q4HRS PRN PO PAIN Last administered on 06/22/20at 11:08; Start 06/22/20 at 10:30 Active Scripts Active Reported Tylenol (Acetaminophen) 325 Mg Tablet 2 Tab PO BIDACBL Oyster Shell Calcium +D Tablet (Calcium Carbonate/Vitamin D3) 1 Each Tablet 1 Each PO BID Synthroid (Levothyroxine Sodium) 75 Mcg Tablet 1 Tab PO DAILY ROS: Review of Systems Review of System REVIEW OF SYSTEMS: GENERAL: Denies weakness SKIN: No bruising, hair changes or rashes. EYES: No blurred, double or loss of vision. NOSE AND THROAT: No history of nosebleeds, hoarseness or sore throat. HEART: No history of palpitations, chest pain or shortness of breath on exertion. LUNGS: Denies cough, hemoptysis, wheezing or shortness of breath. GASTROINTESTINAL: Denies changes in appetite, nausea, vomiting, diarrhea or constipation. GENITOURINARY: No history of frequency, urgency, hesitancy or nocturia. NEUROLOGIC: Denies history of numbness, tingling, or tremor. PSYCHIATRIC: No history of panic, anxiety or depression. ENDOCRINE: No history of heat or cold intolerance, polyuria or polydipsia. EXTREMITIES: Denies joint pain, pain on walking or stiffness. Physical Exam: Vital Signs: Vital Signs Date Time Temp Pulse Resp B/P (MAP) Pulse Ox O2 Delivery O2 Flow Rate FiO2 06/22/20 12:19 95 Room Air 06/22/20 11:00 98.0 76 15 152/65 (94) 98.0 Physcial Exam: GEN: No apparent distress. Alert and oriented HEENT: Normal cephalic, atraumatic, external auditory canals are patent EYES: Extraocular muscles are intact, pupil are equally round and reactive to light and accommodation MUSCULOSKELETAL: Well developed , well nourished, good range of motion ENDOCRINE: No thyromegaly was palpated LYMPHATICS: No cervical chain or axillary nodes were noted HEMATOPOIETIC: No bruising NECK: Supple, no JVD, no thyromegaly was noted LUNGS: Clear to auscultation in all lung bates without rhonchi or wheezing HEART: RRR, S!, S2 present. Peripheral pulses intact, no obvious murmurs noted ABDOMEN: Soft, nontender. Positive bowel sounds, no organomegaly, normal bowel sounds EXTREMITIES: Without clubbing, cyanosis, or edema. Pedal pulses intact. Negative Homans sign NEUROLOGIC: Normal speech and tone. A&O x 3, moves all extremities, no o bvious focal deficits PSYCHIATRIC: Normal affect, normal mood. Stable SKIN: No ulcerations or rashes, good skin turgor, no jaundice VASCULAR: Good capillary refill, neurovascular bundle appears to be intact Labs: Labs: No recent labs to review Images: Images Impression: CT lumbar spine: 1. Increased T11 compression fracture with linear lucencies, may represent acute on chronic fracture. MRI can further evaluate as clinically warranted. 2. Advanced multilevel lumbar spondylosis with leftward curvature most prominent L4-L5. 3. L4-L5 moderate to severe canal narrowing. 4. Neuroforaminal narrowing most prominent right L3-L4, left L4-L5 and left L5-S1. CT pelvis: 1. No acute osseous abnormality. 2. Mild bilateral hip DJD. LE US Impression: 1. No evidence of deep vein thrombosis. Assessment/Plan Assessment/Plan Acute generalized weakness with back pain- Increased T11 compression fracture with linear lucencies, may represent acute on chronic fracture. Advanced multilevel lumbar spondylosis with leftward curvature most prominent L4-L5. L4-L5 moderate to severe canal narrowing. Neuroforaminal narrowing most prominent right L3-L4, left L4-L5 and left L5-S1. Hypothyroidism Osteoporosis Frailty High risk for falls Admit to medicine for further management Serial neuro checks Pending neurology evaluation Pending MRI Pending TSH Med reconciliation Fall precautions PT OT SCD for DVT prophylaxis Regular diet Full code Discussed with RN and SW Disposition pending neuro evaluation Surrogate decision maker is daughter Justifications for Admission Other Justification SIRI MALDONADO MD Jun 22, 2020 13:33
[2020-06-22 14:34] VITALS: BP 150/62
[2020-06-22] MEDS ORDERED: GABAPENTIN 100 MG CAPSULE. PO ONE (15:00)
[2020-06-22 19:00] VITALS: BP 89/41
[2020-06-22] MEDS: GABAPENTIN 100 MG CAPSULE. PO SCH (22:25)
[2020-06-22 23:00] VITALS: BP 118/52
[2020-06-23 03:00] VITALS: BP 135/69
[2020-06-23 04:42] LABS: BASO # 0.1 x10^3/uL (0.0-0.2); BASO % 1 % (0-3); EOS # 0.1 x10^3/uL (0.0-0.7); EOS % 2 % (0-3); HEMATOCRIT 33.2 % (36.0-47.0); HEMOGLOBIN 10.9 g/dL (12.0-15.5); LYMPH # 1.7 x10^3/uL (1.0-4.8); LYMPH % 28 % (24-48); MEAN CORPUSCULAR HEMOGLOBIN 31 pg (25-35); MEAN CORPUSCULAR HGB CONC 33 g/dL (31-37); MEAN CORPUSCULAR VOLUME 94 fL (79-100); MONO # 0.6 x10^3/uL (0.0-1.1); MONO % 10 % (0-9); NEUT # 3.6 x10^3/uL (1.8-7.7); NEUT % 59 % (31-73); PLATELET COUNT 196 x10^3/uL (140-400); RED BLOOD COUNT 3.51 x10^6/uL (3.50-5.40); RED CELL DISTRIBUTION WIDTH 13.4 % (11.5-14.5); WHITE BLOOD COUNT 6.1 x10^3/uL (4.0-11.0)
[2020-06-23 04:59] LABS: CALCIUM 8.4 mg/dL (8.5-10.1); CREATININE 0.7 mg/dL (0.6-1.0); MAGNESIUM 2.6 mg/dL (1.8-2.4); PHOSPHORUS 4.2 mg/dL (2.6-4.7); POTASSIUM 4.1 mmol/L (3.5-5.1)
[2020-06-23 07:15] VITALS: BP 128/68
[2020-06-23] MEDS: HYDROcodone/APAP 5/325MG 1 TAB TABLET PO PRN ×2 (08:56→18:33)
[2020-06-23] MEDS: GABAPENTIN 100 MG CAPSULE. PO SCH ×3 (08:56→21:47)
[2020-06-23 11:36] VITALS: BP 106/47
[2020-06-23] MEDS: DOCUSATE SODIUM 100 MG CAPSULE. PO SCH ×2 (12:33→21:47)
[2020-06-23] MEDS: SENNOSIDES 8.6 MG TABLET PO SCH ×2 (12:33→21:00)
--- NOTE | 2020-06-23 12:52 | NUR ---
pt needed to have orthostatics done, however pt will not stand due to the pain level of when she puts weight on her legs to stand. no orthostatics done yet. Dereje Osborn RN
[2020-06-23 15:20] VITALS: BP 97/48
--- NOTE | 2020-06-23 18:07 | PDOC ---
[facility] PROGRESS NOTE Date of Service DOS: DATE: 06/23/20 TIME: 18:02 Chief Complaint Chief Complaint Acute generalized weakness with back pain- Increased T11 compression fracture with linear lucencies, may represent acute on chronic fracture. Advanced multilevel lumbar spondylosis with leftward curvature most prominent L4-L5. L4-L5 moderate to severe canal narrowing. Neuroforaminal narrowing most prominent right L3-L4, left L4-L5 and left L5-S1. Hypothyroidism Osteoporosis Frailty High risk for falls Admit to medicine for further management Will start her levothyroxine at a lower dose due to low TSH Serial neuro checks Pending neurology evaluation Pending MRI Med reconciliation Fall precautions PT OT SCD for DVT prophylaxis Regular diet Full code Discussed with RN and SW Disposition pending neuro evaluation Surrogate decision maker is daughter History of Present Illness History of Present Illness 89-year-old female with past medical history of hypothyroidism and osteoporosis who presents with complaint of lower extremity pain and back pain. Most of the history is obtained from the daughter who states that she has been dealing with constipation for the past couple weeks and she was seen by her PCP and she was given bowel regimens. However after treatments patient still continued to complain of back pain and she also developed some weakness as well. Patient mainly gets around on a walker at her baseline however today patient has the inability ambulate and she is unable to maintain her own weight. Daughter denies any history of falls or trauma, peripheral vascular disease, fevers, shortness of breath, chest pain, abdominal pain, dysuria or incontinence, diarrhea, bloody stools. Apparently there is no red flags at this time. 06/23/2020 No acute events overnight. Patient seen and examined bedside. Patient is in good spirits. No changes in her neuro exam at this time. Patient's chart, labs, images were reviewed and discussed with RN Vitals/I&O Vitals/I&O: Vital Signs Date Time Temp Pulse Resp B/P (MAP) Pulse Ox O2 Delivery O2 Flow Rate FiO2 06/23/20 15:20 98.5 67 20 97/48 (64) 95 Room Air 98.5 I & O 06/22/20 06/22/20 06/23/20 15:00 23:00 07:00 Intake Total 200 ml 0 ml Balance 200 ml 0 ml Physical Exam Physical Exam: GEN: No apparent distress. Alert and oriented HEENT: Normal cephalic, atraumatic, external auditory canals are patent NECK: Supple, no JVD, no thyromegaly was noted LUNGS: Bilateral crackles HEART: RRR, S1, S2 present. Peripheral pulses intact, no obvious murmurs noted ABDOMEN: Soft, nontender. Positive bowel sounds, no organomegaly, normal bowel sounds EXTREMITIES: Without clubbing, cyanosis, or edema. Pedal pulses intact. Negative Homans sign Lungs: Clear, Other Labs Labs: Laboratory Tests Test 06/23/20 04:00 White Blood Count 6.1 x10^3/uL (4.0-11.0) Red Blood Count 3.51 x10^6/uL (3.50-5.40) Hemoglobin 10.9 g/dL (12.0-15.5) Hematocrit 33.2 % (36.0-47.0) Mean Corpuscular Volume 94 fL (79-100) Mean Corpuscular Hemoglobin 31 pg (25-35) Mean Corpuscular Hemoglobin Concent 33 g/dL (31-37) Red Cell Distribution Width 13.4 % (11.5-14.5) Platelet Count 196 x10^3/uL (140-400) Neutrophils (%) (Auto) 59 % (31-73) Lymphocytes (%) (Auto) 28 % (24-48) Monocytes (%) (Auto) 10 % (0-9) Eosinophils (%) (Auto) 2 % (0-3) Basophils (%) (Auto) 1 % (0-3) Neutrophils # (Auto) 3.6 x10^3/uL (1.8-7.7) Lymphocytes # (Auto) 1.7 x10^3/uL (1.0-4.8) Monocytes # (Auto) 0.6 x10^3/uL (0.0-1.1) Eosinophils # (Auto) 0.1 x10^3/uL (0.0-0.7) Basophils # (Auto) 0.1 x10^3/uL (0.0-0.2) Sodium Level 138 mmol/L (136-145) Potassium Level 4.1 mmol/L (3.5-5.1) Chloride Level 105 mmol/L (98-107) Carbon Dioxide Level 27 mmol/L (21-32) Anion Gap 6 (6-14) Blood Urea Nitrogen 15 mg/dL (7-20) Creatinine 0.7 mg/dL (0.6-1.0) Estimated GFR (Cockcroft-Gault) 79.0 Glucose Level 83 mg/dL (70-99) Calcium Level 8.4 mg/dL (8.5-10.1) Phosphorus Level 4.2 mg/dL (2.6-4.7) Magnesium Level 2.6 mg/dL (1.8-2.4) Thyroid Stimulating Hormone (TSH) 0.308 uIU/mL (0.358-3.74) Assessment and Plan Assessmemt and Plan Problems Medical Problems: (1) Compression fracture of T11 vertebra Status: Acute (2) Intractable pain Status: Acute Comment Review of Relevant I have reviewed the following items rachel (where applicable) has been applied. Medications: Current Medications Medications (Trade) Dose Ordered Sig/Fam Route PRN Reason Start Time Stop Time Status Last Admin Dose Admin Gabapentin (Neurontin) 100 mg TID PO 06/22/20 21:00 06/23/20 14:53 Docusate Sodium (Colace) 100 mg BID PO 06/23/20 12:00 06/23/20 12:33 Sennosides (Senna) 8.6 mg BID PO 06/23/20 12:00 06/23/20 12:33 Justifications for Admission Other Justification SIRI MALDONADO MD Jun 23, 2020 18:07
[2020-06-23] MEDS: LEVOTHYROXINE 25 MCG TABLET. PO SCH (18:30)
[2020-06-23 19:20] VITALS: BP 141/70
[2020-06-23 23:17] VITALS: BP 136/72
[2020-06-24 03:10] VITALS: BP 152/45
[2020-06-24] MEDS: LEVOTHYROXINE 25 MCG TABLET. PO SCH (05:32)
[2020-06-24 07:00] VITALS: BP 142/71
[2020-06-24] MEDS: SENNOSIDES 8.6 MG TABLET PO SCH ×2 (09:15→23:01)
[2020-06-24] MEDS: DOCUSATE SODIUM 100 MG CAPSULE. PO SCH ×2 (09:15→23:01)
[2020-06-24] MEDS: GABAPENTIN 100 MG CAPSULE. PO SCH ×3 (09:15→23:01)
--- NOTE | 2020-06-24 09:55 | NUR ---
SW following. Discussed with RN, pt is from home - has daughter as support. PT/OT ordered - pt has been to [facility] in the past. Pt does no have a COVID-19 test ordered - discussed with RN, pt may need procedure before discharge. SW will continue to follow.
[2020-06-24 11:00] VITALS: BP 124/51
--- NOTE | 2020-06-24 11:04 | RAD ---
MRI Lumbar Spine without contrast History: T11 compression fracture Technique: Multiplanar, multi sequential noncontrast MR imaging was performed of the lumbar spine. Comparison: CT lumbar spine exam June 21, 2020 Findings: As seen on CT, there is severe compression deformity of T11 with osseous retropulsion superiorly. There is associated marrow edema signified by STIR hyperintense and T1 hypointense signal, also thin cleft of fluid at site of maximal height loss. There is no evidence of other recent compression fracture. There is trace edema of the anterior commissure left corner of T10 and adjacent osteophyte. There is small focus of edema in the soft tissues distal to the T10 spinous process. There is moderate lumbar levoscoliosis. There is mild left lateral subluxation L4 relative L5 and L3 relative L4, mild right lateral subluxation L1 relative L2. There is grade 1 anterior spondylolisthesis at L5-S1 and L4-5, very minimal posterior subluxation of L3 to relative L3 and L1 relative L2. There is variable multilevel advanced degenerative disc disease throughout the lumbar spine. Conus terminates at T12-L1. T10-11: Osseous retropulsion of the superior aspect of T11 indents the ventral thecal sac, effacement of ventral subarachnoid space and near the ventral surface of the distal cord. There is overall mild narrowing of the spinal canal. Facet degenerative change contributes to severe bilateral neural foramina compromise greater on the left. T11-12: Spinal canal is adequate at the intervertebral disc space level. Facet degenerative change in combination with osseous retropulsion results in moderate to severe left and mild right neural foramina compromise. T12-L1: Facet degenerative change contributes to mild posterior neural foramina compromise bilaterally. Spinal canal is adequate. There is negligible posterior protrusion. L1-L2: There is disc osteophyte complex and bulge. There is [id number] buckling of the ligamentum flavum and mild facet degenerative change. There is mild to moderate narrowing of the far right lateral recess, minimally on the left. There is severe narrowing of the right neural foramen by disc osteophyte complex and facet, left neural foramen overall adequate. L2-L3: There is disc osteophyte complex and bulge superimposed on the minimally posteriorly subluxed inferior L2 vertebral body margin. There is [id number] buckling of the ligamentum flavum and mild facet degenerative change greater on right. There is mild to moderate narrowing of the far right lateral recess, minimally on the left. There is moderate to severe narrowing of the right neural foramen by facet and disc osteophyte complex, left neural foramen overall adequate. L3-L4: There is minimal disc osteophyte complex and bulge. There is moderate facet degenerative and [id number] buckling of the ligamentum flavum. There is moderate narrowing of the far left lateral recess, mild to moderate narrowing of the far right lateral recess. There is fairly severe narrowing of the right neural foramen mostly from disc osteophyte complex which contacts the exiting right L3 nerve root in the neural foramen and proximal extraforaminal region. There is moderate narrowing of the left neural foramen. L4-L5: There is severe facet degenerative change greater on the left. There is also fairly severe buckling of the ligamentum flavum greater centrally. There is mild partial uncovering of the posterior aspect of the disc due to spondylolisthesis, also disc osteophyte complex and bulge slightly extending above the intervertebral disc space level. Combination of findings results in severe spinal stenosis including lateral recess stenosis bilaterally with impingement of the descending L5 nerve roots, limited preserved central subarachnoid space. There is severe bilateral neural foramina compromise with contact exiting L4 for nerve roots bilaterally. L5-S1: There is partial uncovering of the posterior aspect of the disc due to spondylolisthesis with superimposed bulge. There is fairly severe left and moderate right facet degenerative change. There is mild to moderate buckling of the ligamentum flavum. There is fairly severe narrowing of the far lateral recesses bilaterally greater on the left at location of the descending nerve roots, narrowing from posteriorly by facets and ligamentum flavum. There is severe bilateral neural foramina compromise with impingement exiting L5 nerve roots, on the right in part from partially calcified bulge/protrusion. Impression: 1. There is acute T11 compression fracture with osseous retropulsion superiorly slightly indenting the ventral thecal sac and near the ventral surface of cord, overall mild spinal stenosis. There is some edema of the adjacent anterior, inferior corner of T10 without significant height loss. 2. There is severe spinal stenosis at L4-5, variable multilevel lateral recess stenosis as described at other levels 3. There is multilevel significant neural foramina compromise greatest on the right at L1-2 and L2-3, bilaterally at L4-5 and L5-S1, and right greater than left at L3-4. 4. There is lumbar levoscoliosis. There is multilevel abnormal alignment. There is multilevel lumbar facet degenerative change. 5. There is multilevel variable advanced lumbar degenerative disc disease. Electronically signed by: Todd Rosa MD (06/24/2020 11:01 AM) [id number]
[2020-06-24] MEDS: HYDROcodone/APAP 5/325MG 1 TAB TABLET PO PRN ×2 (12:59→23:02)
[2020-06-24 15:00] VITALS: BP 102/48
--- NOTE | 2020-06-24 16:49 | PDOC ---
PROGRESS NOTES Date of Service: DATE: 06/24/20 TIME: 16:49 Chief Complaint Chief Complaint Acute generalized weakness with back pain- Increased T11 compression fracture with linear lucencies, may represent acute on chronic fracture. Advanced multilevel lumbar spondylosis with leftward curvature most prominent L4-L5. L4-L5 moderate to severe canal narrowing. Neuroforaminal narrowing most prominent right L3-L4, left L4-L5 and left L5-S1. Hypothyroidism Osteoporosis Frailty High risk for falls Admit to medicine for further management Will start her levothyroxine at a lower dose due to low TSH Serial neuro checks Pending neurology evaluation Pending MRI Med reconciliation Fall precautions PT OT SCD for DVT prophylaxis Regular diet Full code Discussed with RN and SW Disposition pending neuro evaluation Surrogate decision maker is daughter History of Present Illness History of Present Illness 89-year-old female with past medical history of hypothyroidism and osteoporosis who presents with complaint of lower extremity pain and back pain. Most of the history is obtained from the daughter who states that she has been dealing with constipation for the past couple weeks and she was seen by her PCP and she was given bowel regimens. However after treatments patient still continued to complain of back pain and she also developed some weakness as well. Patient mainly gets around on a walker at her baseline however today patient has the inability ambulate and she is unable to maintain her own weight. Daughter denies any history of falls or trauma, peripheral vascular disease, fevers, shortness of breath, chest pain, abdominal pain, dysuria or incontinence, diarrhea, bloody stools. Apparently there is no red flags at this time. 06/23/2020 No acute events overnight. Patient seen and examined bedside. Patient is in good spirits. No changes in her neuro exam at this time. Patient's chart, labs, images were reviewed and discussed with RN 06/24/2020 Patient evaluated with daughter at bedside. Patient still with pain but controlled with medication. Will need results of MRI before I am able to discuss with patient and family about how to proceed. Discussed with RN. Vitals Vitals Vital Signs Date Time Temp Pulse Resp B/P (MAP) Pulse Ox O2 Delivery O2 Flow Rate FiO2 06/24/20 15:00 97.3 87 18 102/48 (66) 93 Room Air 97.3 Physical Exam Physical Exam GEN: No apparent distress. Alert and oriented HEENT: Normal cephalic, atraumatic, external auditory canals are patent NECK: Supple, no JVD, no thyromegaly was noted LUNGS: Bilateral crackles HEART: RRR, S1, S2 present. Peripheral pulses intact, no obvious murmurs noted ABDOMEN: Soft, nontender. Positive bowel sounds, no organomegaly, normal bowel sounds EXTREMITIES: Without clubbing, cyanosis, or edema. Pedal pulses intact. Negative Homans sign General: Alert, Cooperative Heart: Regular rate, Normal S1, Normal S2 Lungs: Clear, Other Abdomen: No tenderness Extremities: No clubbing, No cyanosis Skin: No rashes Review of Systems Review of Systems Lower back pain. Denies fever, denies shortness of breath, denies chest pain. Assessment and Plan Assessmemt and Plan Problems Medical Problems: (1) Compression fracture of T11 vertebra Status: Acute (2) Intractable pain Status: Acute Comment Review of Relevant I have reviewed the following items rachel (where applicable) has been applied. Labs Laboratory Tests Test 06/23/20 04:00 White Blood Count 6.1 x10^3/uL (4.0-11.0) Red Blood Count 3.51 x10^6/uL (3.50-5.40) Hemoglobin 10.9 g/dL (12.0-15.5) Hematocrit 33.2 % (36.0-47.0) Mean Corpuscular Volume 94 fL (79-100) Mean Corpuscular Hemoglobin 31 pg (25-35) Mean Corpuscular Hemoglobin Concent 33 g/dL (31-37) Red Cell Distribution Width 13.4 % (11.5-14.5) Platelet Count 196 x10^3/uL (140-400) Neutrophils (%) (Auto) 59 % (31-73) Lymphocytes (%) (Auto) 28 % (24-48) Monocytes (%) (Auto) 10 % (0-9) Eosinophils (%) (Auto) 2 % (0-3) Basophils (%) (Auto) 1 % (0-3) Neutrophils # (Auto) 3.6 x10^3/uL (1.8-7.7) Lymphocytes # (Auto) 1.7 x10^3/uL (1.0-4.8) Monocytes # (Auto) 0.6 x10^3/uL (0.0-1.1) Eosinophils # (Auto) 0.1 x10^3/uL (0.0-0.7) Basophils # (Auto) 0.1 x10^3/uL (0.0-0.2) Sodium Level 138 mmol/L (136-145) Potassium Level 4.1 mmol/L (3.5-5.1) Chloride Level 105 mmol/L (98-107) Carbon Dioxide Level 27 mmol/L (21-32) Anion Gap 6 (6-14) Blood Urea Nitrogen 15 mg/dL (7-20) Creatinine 0.7 mg/dL (0.6-1.0) Estimated GFR (Cockcroft-Gault) 79.0 Glucose Level 83 mg/dL (70-99) Calcium Level 8.4 mg/dL (8.5-10.1) Phosphorus Level 4.2 mg/dL (2.6-4.7) Magnesium Level 2.6 mg/dL (1.8-2.4) Thyroid Stimulating Hormone (TSH) 0.308 uIU/mL (0.358-3.74) Medications Current Medications Acetaminophen/ Hydrocodone Bitart (Lortab 5/325) 1 tab 1X ONCE PO Last administered on 06/22/20at 00:12; Start 06/21/20 at 23:45; Stop 06/21/20 at 23:46; Status DC Lidocaine (Lidoderm) 1 patch 1X ONCE TD Last administered on 06/22/20at 00:12; Start 06/21/20 at 23:45; Stop 06/21/20 at 23:46; Status DC Ondansetron HCl (Zofran) 4 mg PRN Q8HRS PRN IV NAUSEA/VOMITING 1ST CHOICE; Start 06/21/20 at 23:45; Stop 06/22/20 at 23:44; Status DC Acetaminophen (Tylenol) 650 mg PRN Q4HRS PRN PO FEVER > 100.3'F Last administered on 06/22/20at 09:40; Start 06/21/20 at 23:45; Stop 06/22/20 at 23:44; Status DC Acetaminophen/ Hydrocodone Bitart (Lortab 5/325) 1 tab PRN Q4HRS PRN PO PAIN Last administered on 06/24/20at 12:59; Start 06/22/20 at 10:30 Gabapentin (Neurontin) 100 mg TID PO Last administered on 06/24/20at 13:37; Start 06/22/20 at 21:00 Gabapentin (Neurontin) 100 mg ONCE ONCE PO Last administered on 06/22/20at 15:00; Start 06/22/20 at 15:00; Stop 06/22/20 at 15:01; Status DC Docusate Sodium (Colace) 100 mg BID PO Last administered on 06/24/20at 09:15; Start 06/23/20 at 12:00 Sennosides (Senna) 8.6 mg BID PO Last administered on 06/24/20at 09:15; Start 06/23/20 at 12:00 Levothyroxine Sodium (Synthroid) 25 mcg DAILY06 PO Last administered on 06/24/20at 05:32; Start 06/23/20 at 18:30 Active Scripts Active Reported Tylenol (Acetaminophen) 325 Mg Tablet 2 Tab PO BIDACBL Oyster Shell Calcium +D Tablet (Calcium Carbonate/Vitamin D3) 1 Each Tablet 1 Each PO BID Synthroid (Levothyroxine Sodium) 75 Mcg Tablet 1 Tab PO DAILY Vitals/I & O Vital Sign - Last 24 Hours 06/23/20 06/23/20 06/23/20 06/23/20 18:33 19:20 19:33 20:00 Temp 98.0 98.0 Pulse 81 Resp 18 B/P (MAP) 141/70 (93) Pulse Ox 94 O2 Delivery Room Air Room Air Room Air Room Air 06/23/20 06/24/20 06/24/20 06/24/20 23:17 03:10 07:00 08:00 Temp 98.1 97.8 97.8 98.1 97.8 97.8 Pulse 78 77 75 Resp 18 18 18 B/P (MAP) 136/72 (93) 152/45 (80) 142/71 (94) Pulse Ox 95 94 95 O2 Delivery Room Air Room Air Room Air Room Air 06/24/20 06/24/20 06/24/20 06/24/20 11:00 12:59 14:00 15:00 Temp 97.8 97.3 97.8 97.3 Pulse 74 87 Resp 18 18 18 B/P (MAP) 124/51 (75) 102/48 (66) Pulse Ox 94 93 O2 Delivery Room Air Room Air Room Air Room Air Intake and Output 06/23/20 06/23/20 06/24/20 15:00 23:00 07:00 Intake Total 300 ml 150 ml 270 ml Balance 300 ml 150 ml 270 ml Justicifation of Admission Dx: Justifications for Admission: Justification of Admission Dx: Yes DALLIN MCDANIELS MD Jun 24, 2020 16:49
[2020-06-24 19:00] VITALS: BP 115/54
[2020-06-24 23:00] VITALS: BP 134/63
[2020-06-25 02:55] VITALS: BP 113/52
[2020-06-25] MEDS: LEVOTHYROXINE 25 MCG TABLET. PO SCH (06:26)
[2020-06-25 07:47] VITALS: BP 117/50
[2020-06-25] MEDS: GABAPENTIN 100 MG CAPSULE. PO SCH ×3 (08:21→21:36)
[2020-06-25] MEDS: DOCUSATE SODIUM 100 MG CAPSULE. PO SCH ×2 (08:21→21:36)
[2020-06-25] MEDS: SENNOSIDES 8.6 MG TABLET PO SCH ×2 (08:21→21:36)
[2020-06-25] MEDS: HYDROcodone/APAP 5/325MG 1 TAB TABLET PO PRN ×2 (08:22→21:36)
--- NOTE | 2020-06-25 09:30 | NUR ---
MIKE following. Discussed with RN, IR consult for possible procedure. PT/OT on hold. Pt has been to [facility] in the past. No COVID ordered at this time. MIKE will continue to follow. Addendum: 06/25/20 at 1511 by TESSY MCKEON MIKE spoke with pt's daughter, Griselda, she wants to see how pt does tomorrow with therapy after having the shots from Dr. Esparza. SW to touch base with Griselda tomorrow.
[2020-06-25 11:00] VITALS: BP 110/55
[2020-06-25 13:19] LABS: PROTHROMBIN TIME PATIENT 13.4 SEC (11.7-14.0)
[2020-06-25] MEDS ORDERED: methylPREDNISolone ACETATE 40 MG/ML VIAL. INJ ONE (13:30)
[2020-06-25] MEDS ORDERED: methylPREDNISolone ACETATE 40 MG/ML VIAL. IM ONE (13:30)
[2020-06-25] MEDS ORDERED: BUPIVACAINE MPF 0.25% 10 ML VIAL. IJ ONE (13:30)
--- NOTE | 2020-06-25 14:29 | CONS ---
DATE OF CONSULTATION: 06/25/2020 ATTENDING PHYSICIAN: Anival Morataya MD REASON FOR CONSULTATION: The patient was seen at the request of Dr. Morataya for rehab evaluation. HISTORY OF PRESENT ILLNESS: This is an 89-year-old female with known hypothyroidism, osteoporosis, presents with lower back and lower extremity pain for the last few days, interfering with her mobility. The patient apparently had back pain starting several months ago. At the time, she had radiological studies, which revealed T11 vertebral body compression fracture. It got better and she has been walking. The patient lives with her daughter. She is very hard of hearing. She has been independent with walking at a roller walker level. The patient started having knee pain recently, right side more than left side. PAST MEDICAL HISTORY: Includes hypothyroidism, osteoporosis, basal cell carcinoma, status post surgery, . ALLERGIES: KNOWN ALLERGIC TO IODINATED CONTRAST, PENICILLIN, CODEINE, IODINE. The patient had no stairs for her to manage. PHYSICAL EXAMINATION: Today revealed an elderly female. She is alert, oriented to place and person, follows commands appropriately. She had stiffness of her extremity joints, more so of her shoulders and knees. She had 4+/5 grade muscle strength overall. Deep tendon reflexes are 1+ at left knee, absent at right knee and both ankles. The patient had equal perception of touch and pinprick sensation bilaterally. She had tenderness to palpation over lumbar paraspinal muscles extending over to sacroiliac joint area and straight leg raising test is negative bilaterally. She requires help with bed mobility and transfers. Once up, she can walk with bent forward posture using a roller walker for a few feet with a wide-based gait. At bedside, she gets tired easily. By the way, radiological studies revealed multilevel degenerative disk disease and degenerative joint disease on some degree of central spinal and neural foraminal compromise and of course severe T11 vertebral body compression fracture with protrusion of the fragment and touching the ventral spinal cord. ASSESSMENT: Mobility and self-care limited in a patient with multilevel degenerative disk disease and degenerative joint disease of lumbar vertebrae with some degree of neural foraminal and central spinal stenosis and lumbar radiculitis and degenerative joint disease of both shoulders and knees with painful knees, T11 vertebral body compression fracture, which is old, maybe something new also with some retropulsion of the fragments, clinical evidence of peripheral neuropathy. The patient with known hypothyroidism. RECOMMENDATION: To proceed with injecting painful right sacroiliac joint and right knee joint, which I performed under aseptic skin technique after skin preparation using alcohol swab with Depo-Medrol 40 mg per 1 mL solution mixed with 0.25% Marcaine solution. Agree with the plans for physical therapy and occupational therapy to get her up as tolerated using small abdominal binder as lumbar corset. Dr. Morataya, I appreciate asking me to participate in the care of this interesting patient. I will be glad to follow her with you as needed for rehabilitation. ROBIN OLSON MD DR: DEANA/marv JOB#: [id number] / [id number]
[2020-06-25 15:00] VITALS: BP 115/58
--- NOTE | 2020-06-25 15:15 | PDOC ---
PROGRESS NOTES Date of Service: DATE: 06/25/20 TIME: 15:13 Chief Complaint Chief Complaint Acute generalized weakness with back pain- Increased T11 compression fracture with linear lucencies, may represent acute on chronic fracture. Advanced multilevel lumbar spondylosis with leftward curvature most prominent L4-L5. L4-L5 moderate to severe canal narrowing. Neuroforaminal narrowing most prominent right L3-L4, left L4-L5 and left L5-S1. Hypothyroidism Osteoporosis Frailty High risk for falls Admit to medicine for further management Will start her levothyroxine at a lower dose due to low TSH Serial neuro checks Pending neurology evaluation Pending MRI Med reconciliation Fall precautions PT OT SCD for DVT prophylaxis Regular diet Full code Discussed with RN and SW Disposition pending neuro evaluation Surrogate decision maker is daughter History of Present Illness History of Present Illness 89-year-old female with past medical history of hypothyroidism and osteoporosis who presents with complaint of lower extremity pain and back pain. Most of the history is obtained from the daughter who states that she has been dealing with constipation for the past couple weeks and she was seen by her PCP and she was given bowel regimens. However after treatments patient still continued to complain of back pain and she also developed some weakness as well. Patient mainly gets around on a walker at her baseline however today patient has the inability ambulate and she is unable to maintain her own weight. Daughter denies any history of falls or trauma, peripheral vascular disease, fevers, shortness of breath, chest pain, abdominal pain, dysuria or incontinence, diarrhea, bloody stools. Apparently there is no red flags at this time. 06/23/2020 No acute events overnight. Patient seen and examined bedside. Patient is in good spirits. No changes in her neuro exam at this time. Patient's chart, labs, images were reviewed and discussed with RN 06/24/2020 Patient evaluated with daughter at bedside. Patient still with pain but controlled with medication. Will need results of MRI before I am able to discuss with patient and family about how to proceed. Discussed with RN. 06/25/2020 Patient evaluated with daughter at bedside. Discussed with consulting physicians that patient does not good candidate for surgical intervention or kyphoplasty. Discussed with Dr. Esparza about managing patient conservatively with injections and abdominal binder.. Patient and daughter are in agreement. Vitals Vitals Vital Signs Date Time Temp Pulse Resp B/P (MAP) Pulse Ox O2 Delivery O2 Flow Rate FiO2 06/25/20 11:00 97.6 72 18 110/55 (73) 94 Room Air 97.6 Physical Exam Physical Exam GEN: No apparent distress. Alert and oriented HEENT: Normal cephalic, atraumatic, external auditory canals are patent NECK: Supple, no JVD, no thyromegaly was noted LUNGS: Bilateral crackles HEART: RRR, S1, S2 present. Peripheral pulses intact, no obvious murmurs noted ABDOMEN: Soft, nontender. Positive bowel sounds, no organomegaly, normal bowel sounds EXTREMITIES: Without clubbing, cyanosis, or edema. Pedal pulses intact. Negative Homans sign General: Alert, Cooperative Heart: Regular rate, Normal S1, Normal S2 Lungs: Clear, Other Abdomen: No tenderness Extremities: No clubbing, No cyanosis Skin: No rashes Labs LABS Laboratory Tests Test 06/25/20 13:00 Prothrombin Time 13.4 SEC (11.7-14.0) Prothromb Time International Ratio 1.1 (0.8-1.1) Activated Partial Thromboplast Time 32 SEC (24-38) Review of Systems Review of Systems Back pain. Denies fever, denies nausea, denies abdominal pain. Assessment and Plan Assessmemt and Plan Problems Medical Problems: (1) Compression fracture of T11 vertebra Status: Acute (2) Intractable pain Status: Acute Comment Review of Relevant I have reviewed the following items rachel (where applicable) has been applied. Labs Laboratory Tests Test 06/25/20 13:00 Prothrombin Time 13.4 SEC (11.7-14.0) Prothromb Time International Ratio 1.1 (0.8-1.1) Activated Partial Thromboplast Time 32 SEC (24-38) Laboratory Tests Test 06/25/20 13:00 Prothrombin Time 13.4 SEC (11.7-14.0) Prothromb Time International Ratio 1.1 (0.8-1.1) Activated Partial Thromboplast Time 32 SEC (24-38) Medications Current Medications Acetaminophen/ Hydrocodone Bitart (Lortab 5/325) 1 tab 1X ONCE PO Last administered on 06/22/20at 00:12; Start 06/21/20 at 23:45; Stop 06/21/20 at 23:46; Status DC Lidocaine (Lidoderm) 1 patch 1X ONCE TD Last administered on 06/22/20at 00:12; Start 06/21/20 at 23:45; Stop 06/21/20 at 23:46; Status DC Ondansetron HCl (Zofran) 4 mg PRN Q8HRS PRN IV NAUSEA/VOMITING 1ST CHOICE; Start 06/21/20 at 23:45; Stop 06/22/20 at 23:44; Status DC Acetaminophen (Tylenol) 650 mg PRN Q4HRS PRN PO FEVER > 100.3'F Last administered on 06/22/20at 09:40; Start 06/21/20 at 23:45; Stop 06/22/20 at 23:44; Status DC Acetaminophen/ Hydrocodone Bitart (Lortab 5/325) 1 tab PRN Q4HRS PRN PO PAIN Last administered on 06/25/20at 08:22; Start 06/22/20 at 10:30 Gabapentin (Neurontin) 100 mg TID PO Last administered on 06/25/20at 14:07; Start 06/22/20 at 21:00 Gabapentin (Neurontin) 100 mg ONCE ONCE PO Last administered on 06/22/20at 15:00; Start 06/22/20 at 15:00; Stop 06/22/20 at 15:01; Status DC Docusate Sodium (Colace) 100 mg BID PO Last administered on 06/25/20at 08:21; Start 06/23/20 at 12:00 Sennosides (Senna) 8.6 mg BID PO Last administered on 06/25/20at 08:21; Start 06/23/20 at 12:00 Levothyroxine Sodium (Synthroid) 25 mcg DAILY06 PO Last administered on 06/25/20at 06:26; Start 06/23/20 at 18:30 Methylprednisolone Acetate (DEPO-Medrol 40MG VIAL) 40 mg 1X ONCE IM ; Start 06/25/20 at 13:30; Stop 06/25/20 at 13:31; Status DC Methylprednisolone Acetate (DEPO-Medrol 40MG VIAL) 40 mg 1X ONCE INJ ; Start 06/25/20 at 13:30; Stop 06/25/20 at 13:31; Status DC Bupivacaine HCl (Sensorcaine-Mpf 0.25%) 10 ml 1X ONCE IJ ; Start 06/25/20 at 13:30; Stop 06/25/20 at 13:31; Status DC Diclofenac Sodium (Voltaren) 1 nori BID TP ; Start 06/25/20 at 21:00 Active Scripts Active Reported Tylenol (Acetaminophen) 325 Mg Tablet 2 Tab PO BIDACBL Oyster Shell Calcium +D Tablet (Calcium Carbonate/Vitamin D3) 1 Each Tablet 1 Each PO BID Synthroid (Levothyroxine Sodium) 75 Mcg Tablet 1 Tab PO DAILY Vitals/I & O Vital Sign - Last 24 Hours 06/24/20 06/24/20 06/24/20 06/24/20 19:00 20:00 23:00 23:02 Temp 99.3 99.3 99.3 99.3 Pulse 87 98 Resp 18 18 20 B/P (MAP) 115/54 (74) 134/63 (86) Pulse Ox 92 92 O2 Delivery Room Air Room Air Room Air Room Air 06/25/20 06/25/20 06/25/20 06/25/20 00:08 02:55 07:45 07:47 Temp 99.5 97.8 99.5 97.8 Pulse 87 74 Resp 16 18 18 B/P (MAP) 113/52 (72) 117/50 (72) Pulse Ox 91 94 O2 Delivery Room Air Room Air Room Air 06/25/20 06/25/20 06/25/20 08:22 09:20 11:00 Temp 97.6 97.6 Pulse 72 Resp 18 B/P (MAP) 110/55 (73) Pulse Ox 94 O2 Delivery Room Air Room Air Room Air Intake and Output 06/24/20 06/24/20 06/25/20 15:00 23:00 07:00 Intake Total 360 ml 150 ml 50 ml Output Total 0 ml Balance 360 ml 150 ml 50 ml Justicifation of Admission Dx: Justifications for Admission: Justification of Admission Dx: Yes DALLIN MCDANIELS MD Jun 25, 2020 15:15
--- NOTE | 2020-06-25 18:01 | PDOC ---
Provider Note Date of Service: DATE: 06/25/20 TIME: 17:52 Provider Note Patient seen and examined at 1245 consulted for thoracic compression fracture c/o back pain denies falling She had 4+/5 grade muscle strength overall Lumbar MRI There is acute T11 compression fracture with osseous retropulsion superiorly slightly indenting the ventral thecal sac and near the ventral surface of cord, overall mild spinal stenosis. There is some edema of the adjacent anterior, inferior corner of T10 without significant height loss. IR has been consulted for possible vertebroplasty may benefit from brace continue rehab, Dr. Esparza following D/W daughter Justifications for Admission Other Justification NAI ONEAL MD Jun 25, 2020 18:01
[2020-06-25 19:00] VITALS: BP 124/60
[2020-06-25] MEDS: DICLOFENAC SODIUM 1% TOPICAL GEL 100GM TUBE. TP SCH (21:00)
[2020-06-25] MEDS: ENOXAPARIN 30 MG/0.3 ML SYRINGE. SQ SCH (21:36)
[2020-06-25 23:00] VITALS: BP 111/52
[2020-06-26 03:00] VITALS: BP 129/86
[2020-06-26] MEDS: LEVOTHYROXINE 25 MCG TABLET. PO SCH (05:38)
[2020-06-26 07:00] VITALS: BP 106/50
--- NOTE | 2020-06-26 08:04 | PDOC ---
Provider Note Date of Service: DATE: 06/26/20 TIME: 08:00 Provider Note IR She has an acute on chronic fracture at T11 with 80% loss of height and a horizontal fracture plane. There is bony retropulsion with abuts the thecal sac, and dispaces the cord minimally. Discussed risks and benefits of vertebral augmentation procedure with patient and her daughter. There are increased risks given fracture morphology. They would like to pursue conservative treatment for now, and determine how much mobility and return to her baseline ADL that she can achieve with this. Justifications for Admission Other Justification BECCA HAMMOND MD Jun 26, 2020 08:04
[2020-06-26] MEDS: SENNOSIDES 8.6 MG TABLET PO SCH ×2 (08:49→21:42)
[2020-06-26] MEDS: DOCUSATE SODIUM 100 MG CAPSULE. PO SCH ×2 (08:49→21:41)
[2020-06-26] MEDS: HYDROcodone/APAP 5/325MG 1 TAB TABLET PO PRN ×2 (08:50→14:15)
[2020-06-26] MEDS: GABAPENTIN 100 MG CAPSULE. PO SCH ×3 (08:50→21:41)
[2020-06-26] MEDS: DICLOFENAC SODIUM 1% TOPICAL GEL 100GM TUBE. TP SCH ×2 (08:51→21:42)
--- NOTE | 2020-06-26 10:52 | NUR ---
MIKE following. Discussed with RN, MIKE spoke with pt's daughter, Griselda, she would like referral sent to [facility] for SNU. MIKE faxed referral to [facility], awaiting acceptance decision. MIKE will continue to follow. Addendum: 06/26/20 at 1352 by TESSY MCKEON Pt accepted at [facility] for SNU. Family deciding about whether to do the Kyphoplasty or not. MIKE will continue.
[2020-06-26 11:00] VITALS: BP 98/50
--- NOTE | 2020-06-26 12:41 | NUR ---
daughter at bedside. they are trying to see if she wants to go to [facility] or go ahead and have the vertebroplasty. IR is awaiting their decision. abdominal binder is on when up in recliner.
--- NOTE | 2020-06-26 14:21 | PDOC ---
PROGRESS NOTES Date of Service DATE: 06/26/20 TIME: 14:18 Subjective Subjective She admits continued back pain. Objective Objective Vital Signs Date Time Temp Pulse Resp B/P (MAP) Pulse Ox O2 Delivery O2 Flow Rate FiO2 06/26/20 14:15 16 93 Room Air 06/26/20 11:00 97.5 65 98/50 (66) 97.5 Intake and Output 06/26/20 07:00 Intake Total 50 ml Balance 50 ml Intake Oral 50 ml # Voids 1 Physical Exam Physical Exam She got up and walked with roller walker as per physical therapy and she is dragging her left foot while up with forward flexion posture. She is tired and sleeping now. Assessment Assessment Problems Medical Problems: (1) Compression fracture of T11 vertebra Status: Acute (2) Intractable pain Status: Acute Plan Plan of Care To get her up as tolerated and agree with plans for SNF transfer when medically stable and to consider injecting her left side if pain persists. Comment Review of Relevant I have reviewed the following items rachel (where applicable) has been applied. Labs Laboratory Tests Test 06/25/20 13:00 06/25/20 18:00 Prothrombin Time 13.4 SEC (11.7-14.0) Prothromb Time International Ratio 1.1 (0.8-1.1) Activated Partial Thromboplast Time 32 SEC (24-38) SARS-CoV-2 Antigen (Rapid) Negative (NEGATIVE) Laboratory Tests Test 06/25/20 18:00 SARS-CoV-2 Antigen (Rapid) Negative (NEGATIVE) Medications Current Medications Acetaminophen/ Hydrocodone Bitart (Lortab 5/325) 1 tab 1X ONCE PO Last administered on 06/22/20at 00:12; Start 06/21/20 at 23:45; Stop 06/21/20 at 23:46; Status DC Lidocaine (Lidoderm) 1 patch 1X ONCE TD Last administered on 06/22/20at 00:12; Start 06/21/20 at 23:45; Stop 06/21/20 at 23:46; Status DC Ondansetron HCl (Zofran) 4 mg PRN Q8HRS PRN IV NAUSEA/VOMITING 1ST CHOICE; Start 06/21/20 at 23:45; Stop 06/22/20 at 23:44; Status DC Acetaminophen (Tylenol) 650 mg PRN Q4HRS PRN PO FEVER > 100.3'F Last administered on 06/22/20 09:40; Start 06/21/20 at 23:45; Stop 06/22/20 at 23:44; Status DC Acetaminophen/ Hydrocodone Bitart (Lortab 5/325) 1 tab PRN Q4HRS PRN PO PAIN Last administered on 06/26/20 14:15; Start 06/22/20 at 10:30 Gabapentin (Neurontin) 100 mg TID PO Last administered on 06/26/20 14:15; Start 06/22/20 at 21:00 Gabapentin (Neurontin) 100 mg ONCE ONCE PO Last administered on 06/22/20at 15:00; Start 06/22/20 at 15:00; Stop 06/22/20 at 15:01; Status DC Docusate Sodium (Colace) 100 mg BID PO Last administered on 06/26/20 08:49; Start 06/23/20 at 12:00 Sennosides (Senna) 8.6 mg BID PO Last administered on 06/26/20 08:49; Start 06/23/20 at 12:00 Levothyroxine Sodium (Synthroid) 25 mcg DAILY06 PO Last administered on 06/26/20 05:38; Start 06/23/20 at 18:30 Methylprednisolone Acetate (DEPO-Medrol 40MG VIAL) 40 mg 1X ONCE IM ; Start 06/25/20 at 13:30; Stop 06/25/20 at 13:31; Status DC Methylprednisolone Acetate (DEPO-Medrol 40MG VIAL) 40 mg 1X ONCE INJ Last administered on 06/25/20 13:30; Start 06/25/20 at 13:30; Stop 06/25/20 at 13:31; Status DC Bupivacaine HCl (Sensorcaine-Mpf 0.25%) 10 ml 1X ONCE IJ Last administered on 06/25/20at 13:30; Start 06/25/20 at 13:30; Stop 06/25/20 at 13:31; Status DC Diclofenac Sodium (Voltaren) 1 nori BID TP Last administered on 06/26/20 08:51; Start 06/25/20 at 21:00 Enoxaparin Sodium (Lovenox 30mg Syringe) 30 mg Q24H SQ Last administered on 06/25/20at 21:36; Start 06/25/20 at 21:00 Active Scripts Active Reported Tylenol (Acetaminophen) 325 Mg Tablet 2 Tab PO BIDACBL Oyster Shell Calcium +D Tablet (Calcium Carbonate/Vitamin D3) 1 Each Tablet 1 Each PO BID Synthroid (Levothyroxine Sodium) 75 Mcg Tablet 1 Tab PO DAILY Vitals/I & O Vital Sign - Last 24 Hours 06/25/20 06/25/20 06/25/20 06/25/20 15:00 19:00 20:00 21:36 Temp 97.6 98.0 97.6 98.0 Pulse 72 98 Resp 18 18 B/P (MAP) 115/58 (77) 124/60 (81) Pulse Ox 92 91 O2 Delivery Room Air Room Air Room Air Room Air 06/25/20 06/25/20 06/26/20 06/26/20 22:36 23:00 03:00 07:00 Temp 97.9 98.0 97.7 97.9 98.0 97.7 Pulse 84 76 70 Resp 16 16 16 B/P (MAP) 111/52 (71) 129/86 (100) 106/50 (68) Pulse Ox 93 94 93 O2 Delivery Room Air Room Air Room Air Room Air 06/26/20 06/26/20 06/26/20 06/26/20 08:00 08:50 10:00 11:00 Temp 97.5 97.5 Pulse 65 Resp 20 16 18 B/P (MAP) 98/50 (66) Pulse Ox 93 93 O2 Delivery Room Air Room Air Room Air 06/26/20 14:15 Resp 16 Pulse Ox 93 O2 Delivery Room Air Intake and Output 06/25/20 06/25/20 06/26/20 15:00 23:00 07:00 Intake Total 50 ml Balance 50 ml Justifications for Admission Other Justification ROBIN OLSON MD Jun 26, 2020 14:21
[2020-06-26 15:00] VITALS: BP 122/58
--- NOTE | 2020-06-26 17:29 | PDOC ---
PROGRESS NOTES Date of Service: DATE: 06/26/20 TIME: 17:27 Chief Complaint Chief Complaint Acute generalized weakness with back pain- Increased T11 compression fracture with linear lucencies, may represent acute on chronic fracture. Advanced multilevel lumbar spondylosis with leftward curvature most prominent L4-L5. L4-L5 moderate to severe canal narrowing. Neuroforaminal narrowing most prominent right L3-L4, left L4-L5 and left L5-S1. Hypothyroidism Osteoporosis Frailty High risk for falls Admit to medicine for further management Will start her levothyroxine at a lower dose due to low TSH Serial neuro checks Pending neurology evaluation Pending MRI Med reconciliation Fall precautions PT OT SCD for DVT prophylaxis Regular diet Full code Discussed with RN and SW Disposition pending neuro evaluation Surrogate decision maker is daughter History of Present Illness History of Present Illness 89-year-old female with past medical history of hypothyroidism and osteoporosis who presents with complaint of lower extremity pain and back pain. Most of the history is obtained from the daughter who states that she has been dealing with constipation for the past couple weeks and she was seen by her PCP and she was given bowel regimens. However after treatments patient still continued to complain of back pain and she also developed some weakness as well. Patient mainly gets around on a walker at her baseline however today patient has the inability ambulate and she is unable to maintain her own weight. Daughter denies any history of falls or trauma, peripheral vascular disease, fevers, shortness of breath, chest pain, abdominal pain, dysuria or incontinence, diarrhea, bloody stools. Apparently there is no red flags at this time. 06/23/2020 No acute events overnight. Patient seen and examined bedside. Patient is in good spirits. No changes in her neuro exam at this time. Patient's chart, labs, images were reviewed and discussed with RN 06/24/2020 Patient evaluated with daughter at bedside. Patient still with pain but controlled with medication. Will need results of MRI before I am able to discuss with patient and family about how to proceed. Discussed with RN. 06/25/2020 Patient evaluated with daughter at bedside. Discussed with consulting physicians that patient does not good candidate for surgical intervention or kyphoplasty. Discussed with Dr. Esparza about managing patient conservatively with injections and abdominal binder.. Patient and daughter are in agreement. 06/26/2020 Patient evaluated with son at bedside. It appears to be some discrepancies on how to proceed. Family and patient would like to regain as much mobility as possible, but uncertain how this could be achieved with conservative management alone. Patient states her pain is currently tolerable. Vitals Vitals Vital Signs Date Time Temp Pulse Resp B/P (MAP) Pulse Ox O2 Delivery O2 Flow Rate FiO2 06/26/20 15:00 97.4 72 18 122/58 (79) 94 Room Air 97.4 Physical Exam Physical Exam GEN: No apparent distress. Alert and oriented HEENT: Normal cephalic, atraumatic, external auditory canals are patent NECK: Supple, no JVD, no thyromegaly was noted LUNGS: Bilateral crackles HEART: RRR, S1, S2 present. Peripheral pulses intact, no obvious murmurs noted ABDOMEN: Soft, nontender. Positive bowel sounds, no organomegaly, normal bowel sounds EXTREMITIES: Without clubbing, cyanosis, or edema. Pedal pulses intact. Negative Homans sign General: Alert, Cooperative Heart: Regular rate, Normal S1, Normal S2 Lungs: Clear, Other Abdomen: No tenderness Extremities: No clubbing, No cyanosis Skin: No rashes Labs LABS Laboratory Tests Test 06/25/20 18:00 SARS-CoV-2 Antigen (Rapid) Negative (NEGATIVE) Review of Systems Review of Systems Pap pain. Denies fever, denies nausea, denies vomiting. Assessment and Plan Assessmemt and Plan Problems Medical Problems: (1) Compression fracture of T11 vertebra Status: Acute (2) Intractable pain Status: Acute Comment Review of Relevant I have reviewed the following items rachel (where applicable) has been applied. Labs Laboratory Tests Test 06/25/20 13:00 06/25/20 18:00 Prothrombin Time 13.4 SEC (11.7-14.0) Prothromb Time International Ratio 1.1 (0.8-1.1) Activated Partial Thromboplast Time 32 SEC (24-38) SARS-CoV-2 Antigen (Rapid) Negative (NEGATIVE) Laboratory Tests Test 06/25/20 18:00 SARS-CoV-2 Antigen (Rapid) Negative (NEGATIVE) Medications Current Medications Acetaminophen/ Hydrocodone Bitart (Lortab 5/325) 1 tab 1X ONCE PO Last administered on 06/22/20at 00:12; Start 06/21/20 at 23:45; Stop 06/21/20 at 23:46; Status DC Lidocaine (Lidoderm) 1 patch 1X ONCE TD Last administered on 06/22/20at 00:12; Start 06/21/20 at 23:45; Stop 06/21/20 at 23:46; Status DC Ondansetron HCl (Zofran) 4 mg PRN Q8HRS PRN IV NAUSEA/VOMITING 1ST CHOICE; Start 06/21/20 at 23:45; Stop 06/22/20 at 23:44; Status DC Acetaminophen (Tylenol) 650 mg PRN Q4HRS PRN PO FEVER > 100.3'F Last administe red on 06/22/20at 09:40; Start 06/21/20 at 23:45; Stop 06/22/20 at 23:44; Status DC Acetaminophen/ Hydrocodone Bitart (Lortab 5/325) 1 tab PRN Q4HRS PRN PO PAIN Last administered on 06/26/20at 14:15; Start 06/22/20 at 10:30 Gabapentin (Neurontin) 100 mg TID PO Last administered on 06/26/20at 14:15; Start 06/22/20 at 21:00 Gabapentin (Neurontin) 100 mg ONCE ONCE PO Last administered on 06/22/20at 15:00; Start 06/22/20 at 15:00; Stop 06/22/20 at 15:01; Status DC Docusate Sodium (Colace) 100 mg BID PO Last administered on 06/26/20at 08:49; Start 06/23/20 at 12:00 Sennosides (Senna) 8.6 mg BID PO Last administered on 06/26/20at 08:49; Start 06/23/20 at 12:00 Levothyroxine Sodium (Synthroid) 25 mcg DAILY06 PO Last administered on 06/26/20at 05:38; Start 06/23/20 at 18:30 Methylprednisolone Acetate (DEPO-Medrol 40MG VIAL) 40 mg 1X ONCE IM ; Start 06/25/20 at 13:30; Stop 06/25/20 at 13:31; Status DC Methylprednisolone Acetate (DEPO-Medrol 40MG VIAL) 40 mg 1X ONCE INJ Last administered on 06/25/20at 13:30; Start 06/25/20 at 13:30; Stop 06/25/20 at 13:31; Status DC Bupivacaine HCl (Sensorcaine-Mpf 0.25%) 10 ml 1X ONCE IJ Last administered on 06/25/20at 13:30; Start 06/25/20 at 13:30; Stop 06/25/20 at 13:31; Status DC Diclofenac Sodium (Voltaren) 1 nori BID TP Last administered on 06/26/20at 08:51; Start 06/25/20 at 21:00 Enoxaparin Sodium (Lovenox 30mg Syringe) 30 mg Q24H SQ Last administered on 06/25/20at 21:36; Start 06/25/20 at 21:00 Active Scripts Active Reported Tylenol (Acetaminophen) 325 Mg Tablet 2 Tab PO BIDACBL Oyster Shell Calcium +D Tablet (Calcium Carbonate/Vitamin D3) 1 Each Tablet 1 Each PO BID Synthroid (Levothyroxine Sodium) 75 Mcg Tablet 1 Tab PO DAILY Vitals/I & O Vital Sign - Last 24 Hours 06/25/20 06/25/20 06/25/20 06/25/20 19:00 20:00 21:36 22:36 Temp 98.0 98.0 Pulse 98 Resp 18 B/P (MAP) 124/60 (81) Pulse Ox 91 O2 Delivery Room Air Room Air Room Air Room Air 06/25/20 06/26/20 06/26/20 06/26/20 23:00 03:00 07:00 08:00 Temp 97.9 98.0 97.7 97.9 98.0 97.7 Pulse 84 76 70 Resp 16 16 16 B/P (MAP) 111/52 (71) 129/86 (100) 106/50 (68) Pulse Ox 93 94 93 O2 Delivery Room Air Room Air Room Air Room Air 06/26/20 06/26/20 06/26/20 06/26/20 08:50 10:00 11:00 14:15 Temp 97.5 97.5 Pulse 65 Resp 20 16 18 16 B/P (MAP) 98/50 (66) Pulse Ox 93 93 93 O2 Delivery Room Air Room Air Room Air 06/26/20 15:00 Temp 97.4 97.4 Pulse 72 Resp 18 B/P (MAP) 122/58 (79) Pulse Ox 94 O2 Delivery Room Air Intake and Output 06/25/20 06/25/20 06/26/20 15:00 23:00 07:00 Intake Total 50 ml Balance 50 ml Justicifation of Admission Dx: Justifications for Admission: Justification of Admission Dx: Yes DALLIN MCDANIELS MD Jun 26, 2020 17:29
[2020-06-26 19:00] VITALS: BP 113/50
--- NOTE | 2020-06-26 19:14 | NUR ---
daughter at bedside. states that she talked to Dr. Myers and they are going ahead with the kyphoplasty tomorrow in the afternoon. message left with IR regarding this. will npo her at midnight.
--- NOTE | 2020-06-26 19:34 | NUR ---
RN pressed "not done" because RN was not here to assess medications.
[2020-06-26] MEDS: ENOXAPARIN 30 MG/0.3 ML SYRINGE. SQ SCH (21:42)
[2020-06-26 23:00] VITALS: BP 107/51
[2020-06-27] VITALS (13 sets, daily range): BP systolic 107–153; BP diastolic 37–84
[2020-06-27] MEDS: HYDROcodone/APAP 5/325MG 1 TAB TABLET PO PRN ×2 (05:50→15:19)
[2020-06-27] MEDS: LEVOTHYROXINE 25 MCG TABLET. PO SCH (05:54)
[2020-06-27] MEDS: DOCUSATE SODIUM 100 MG CAPSULE. PO SCH ×2 (07:49→21:19)
[2020-06-27] MEDS: GABAPENTIN 100 MG CAPSULE. PO SCH ×3 (07:49→21:19)
[2020-06-27] MEDS: SENNOSIDES 8.6 MG TABLET PO SCH ×2 (07:49→21:19)
[2020-06-27] MEDS: DICLOFENAC SODIUM 1% TOPICAL GEL 100GM TUBE. TP SCH ×2 (08:05→21:20)
--- NOTE | 2020-06-27 08:26 | PDOC ---
Provider Note Date of Service: DATE: 06/27/20 TIME: 08:18 Provider Note IR NOTE Was contacted by the patients daughter who, in consultation with other family members, wanted to reconsider vertebral augmentation while inpatient. There is concern that with her limited ability to weightbear, and marked decrease in functional status, her recovery may be slow. They feel that given her advanced age and limited reserve, prolonged down time could lead to significant permanent decline in functional status. This logic is very reasonable in my mind. Despite fracture morphology increasing risk profile of vertebral augmentation, they wish to proceed with vertebral augmentation to hopefully hasten recovery. Will plan on procedure today. Justifications for Admission Other Justification BECCA HAMMOND MD Jun 27, 2020 08:26
--- NOTE | 2020-06-27 09:17 | PDOC ---
PROGRESS NOTES Date of Service DATE: 06/27/20 TIME: 09:15 Subjective Subjective She admits continued low back pain. Objective Objective Vital Signs Date Time Temp Pulse Resp B/P (MAP) Pulse Ox O2 Delivery O2 Flow Rate FiO2 06/27/20 07:53 Room Air 06/27/20 07:00 98.2 73 18 112/49 (70) 95 98.2 Intake and Output 06/27/20 07:00 Intake Total 500 ml Balance 500 ml Intake Oral 500 ml # Voids 1 Physical Exam Physical Exam She is supine in bed and seems comfortable and no change noted with her neurological examination. Assessment Assessment Problems Medical Problems: (1) Compression fracture of T11 vertebra Status: Acute (2) Intractable pain Status: Acute Plan Plan of Care I hope kyphoplasty does not cause any problems. Comment Review of Relevant I have reviewed the following items rachel (where applicable) has been applied. Labs Laboratory Tests Test 06/25/20 13:00 06/25/20 18:00 Prothrombin Time 13.4 SEC (11.7-14.0) Prothromb Time International Ratio 1.1 (0.8-1.1) Activated Partial Thromboplast Time 32 SEC (24-38) Coronavirus (PCR) Not detected (Not Detected) SARS-CoV-2 Antigen (Rapid) Negative (NEGATIVE) Medications Current Medications Acetaminophen/ Hydrocodone Bitart (Lortab 5/325) 1 tab 1X ONCE PO Last administered on 06/22/20at 00:12; Start 06/21/20 at 23:45; Stop 06/21/20 at 23:46; Status DC Lidocaine (Lidoderm) 1 patch 1X ONCE TD Last administered on 06/22/20at 00:12; Start 06/21/20 at 23:45; Stop 06/21/20 at 23:46; Status DC Ondansetron HCl (Zofran) 4 mg PRN Q8HRS PRN IV NAUSEA/VOMITING 1ST CHOICE; Start 06/21/20 at 23:45; Stop 06/22/20 at 23:44; Status DC Acetaminophen (Tylenol) 650 mg PRN Q4HRS PRN PO FEVER > 100.3'F Last administered on 06/22/20at 09:40; Start 06/21/20 at 23:45; Stop 06/22/20 at 23:44; Status DC Acetaminophen/ Hydrocodone Bitart (Lortab 5/325) 1 tab PRN Q4HRS PRN PO PAIN Last administered on 06/27/20 05:50; Start 06/22/20 at 10:30 Gabapentin (Neurontin) 100 mg TID PO Last administered on 06/26/20 21:41; Start 06/22/20 at 21:00 Gabapentin (Neurontin) 100 mg ONCE ONCE PO Last administered on 06/22/20at 15:00; Start 06/22/20 at 15:00; Stop 06/22/20 at 15:01; Status DC Docusate Sodium (Colace) 100 mg BID PO Last administered on 06/26/20 21:41; Start 06/23/20 at 12:00 Sennosides (Senna) 8.6 mg BID PO Last administered on 06/26/20 21:42; Start 06/23/20 at 12:00 Levothyroxine Sodium (Synthroid) 25 mcg DAILY06 PO Last administered on 06/26/20 05:38; Start 06/23/20 at 18:30 Methylprednisolone Acetate (DEPO-Medrol 40MG VIAL) 40 mg 1X ONCE IM ; Start 06/25/20 at 13:30; Stop 06/25/20 at 13:31; Status DC Methylprednisolone Acetate (DEPO-Medrol 40MG VIAL) 40 mg 1X ONCE INJ Last administered on 06/25/20 13:30; Start 06/25/20 at 13:30; Stop 06/25/20 at 13:31; Status DC Bupivacaine HCl (Sensorcaine-Mpf 0.25%) 10 ml 1X ONCE IJ Last administered on 06/25/20at 13:30; Start 06/25/20 at 13:30; Stop 06/25/20 at 13:31; Status DC Diclofenac Sodium (Voltaren) 1 nori BID TP Last administered on 06/26/20 21:42; Start 06/25/20 at 21:00 Enoxaparin Sodium (Lovenox 30mg Syringe) 30 mg Q24H SQ Last administered on 06/26/20 21:42; Start 06/25/20 at 21:00 Active Scripts Active Reported Tylenol (Acetaminophen) 325 Mg Tablet 2 Tab PO BIDACBL Oyster Shell Calcium +D Tablet (Calcium Carbonate/Vitamin D3) 1 Each Tablet 1 E ach PO BID Synthroid (Levothyroxine Sodium) 75 Mcg Tablet 1 Tab PO DAILY Vitals/I & O Vital Sign - Last 24 Hours 06/26/20 06/26/20 06/26/20 06/26/20 10:00 11:00 14:15 15:00 Temp 97.5 97.4 97.5 97.4 Pulse 65 72 Resp 16 18 16 18 B/P (MAP) 98/50 (66) 122/58 (79) Pulse Ox 93 93 93 94 O2 Delivery Room Air Room Air Room Air Room Air 06/26/20 06/26/20 06/26/20 06/27/20 19:00 20:00 23:00 03:00 Temp 98.1 98.0 97.9 98.1 98.0 97.9 Pulse 75 70 77 Resp 18 18 18 B/P (MAP) 113/50 (71) 107/51 (69) 133/44 (73) Pulse Ox 95 94 96 O2 Delivery Room Air Room Air Room Air Room Air 06/27/20 06/27/20 06/27/20 06/27/20 05:50 06:50 07:00 07:53 Temp 98.2 98.2 Pulse 73 Resp 18 B/P (MAP) 112/49 (70) Pulse Ox 95 O2 Delivery Room Air Room Air Room Air Room Air Intake and Output 06/26/20 06/26/20 06/27/20 15:00 23:00 07:00 Intake Total 300 ml 200 ml 0 ml Balance 300 ml 200 ml 0 ml Justifications for Admission Other Justification ROBIN OLSON MD Jun 27, 2020 09:17
--- NOTE | 2020-06-27 09:34 | NUR ---
SW following. Discussed with RN, pt having a kyphoplasty today. Plan for discharge to [facility] tomorrow (06/28/2020). MIKE will continue to follow.
[2020-06-27] MEDS ORDERED: IOHEXOL 240 MG/ML 50ML VIAL. ONE (09:51)
[2020-06-27] MEDS ORDERED: LIDOCAINE WITH 8.4% SOD BICARB 3 ML DISP.SYRIN. ONE (09:51)
[2020-06-27] MEDS ORDERED: fentaNYL PF VIAL 100 MCG/2 ML VIAL ONE (09:55)
[2020-06-27] MEDS ORDERED: MIDAZOLAM HCL/PF 2 MG/2 ML VIAL. ONE (09:55)
[2020-06-27] MEDS ORDERED: VANCOMYCIN 1GM IVPB FOR OMNI 250 ML ONE (09:55)
[2020-06-27] MEDS ORDERED: GADOTERATE 5 MMOL/10ML VIAL. ONE (09:58)
[2020-06-27] MEDS ORDERED: LIDOCAINE WITH 8.4% SOD BICARB 3 ML DISP.SYRIN. IJ ONE (10:15)
[2020-06-27] MEDS ORDERED: fentaNYL PF VIAL 100 MCG/2 ML VIAL IV ONE (10:15)
[2020-06-27] MEDS ORDERED: MIDAZOLAM HCL/PF 2 MG/2 ML VIAL. IV ONE (10:15)
[2020-06-27] MEDS ORDERED: GADOTERATE 5 MMOL/10ML VIAL. IVP ONE (10:15)
[2020-06-27] MEDS ORDERED: VANCOMYCIN 1GM IVPB FOR OMNI 250 ML IV ONE (10:45)
--- NOTE | 2020-06-27 12:35 | RAD ---
Fluoroscopically guided vertebroplasty, T11 l Indication:T11 compression fracture. Fractures pathologic secondary to bone demineralization. There is severe loss of height, and severe pain limiting activities of daily living, an refractory to conservative treatment measures Fluoro time: 10.9 minutes Dose area product: 50.2 Gycm2 Moderate sedation: The patient was appropriately monitored by a qualified independent observer throughout the course of the moderate sedation. [id number] sedation time:40 Consent: The risks and benefits of the procedure were discussed with the patient. Informed consent was obtained. The patient was brought to the fluoroscopy suite and placed in the prone position. A timeout procedure was performed. Preprocedural antibiotics were administered. Procedure: The overlying skin was prepped and draped in the usual sterile fashion. All elements of maximal sterile barrier technique including the use of a cap, mask, sterile gown, sterile gloves, large sterile sheet, appropriate hand hygiene, and 2% chlorhexidine for cutaneous antisepsis (or acceptable alternative antiseptic per current guidelines) were followed for this procedure. Using a left transpedicular approach, and direct fluoroscopic guidance, a trocar needle was advanced to the posterior third of the targeted T11 vertebral body. Attempts were made to navigate in the augmentation balloon into the central vertebral body which were unsuccessful. A curved cement delivery needle was advanced into the contralateral vertebral body. Contrast opacified polymethylmethacrylate was then very slowly and carefully introduced through the vertebral augmentation needle, using strict fluoroscopic control. Once adequate filling had been achieved the needles were removed and manual pressure was held. No significant extravasation or complication was identified. Sterile dressing was applied. Patient tolerated the procedure well, without apparent complication. Impression: Fluoroscopically guided vertebroplasty, T11
--- NOTE | 2020-06-27 16:41 | PDOC ---
[facility] PROGRESS NOTE Date of Service DOS: DATE: 06/27/20 TIME: 16:40 Chief Complaint Chief Complaint Acute generalized weakness with back pain- Increased T11 compression fracture with linear lucencies, may represent acute on chronic fracture. Advanced multilevel lumbar spondylosis with leftward curvature most prominent L4-L5. L4-L5 moderate to severe canal narrowing. Neuroforaminal narrowing most prominent right L3-L4, left L4-L5 and left L5-S1. Hypothyroidism Osteoporosis Frailty High risk for falls Admit to medicine for further management Will start her levothyroxine at a lower dose due to low TSH Serial neuro checks Pending neurology evaluation Pending MRI Med reconciliation Fall precautions PT OT SCD for DVT prophylaxis Regular diet Full code Discussed with RN and SW Disposition pending neuro evaluation Surrogate decision maker is daughter History of Present Illness History of Present Illness 89-year-old female with past medical history of hypothyroidism and osteoporosis who presents with complaint of lower extremity pain and back pain. Most of the history is obtained from the daughter who states that she has been dealing with constipation for the past couple weeks and she was seen by her PCP and she was given bowel regimens. However after treatments patient still continued to complain of back pain and she also developed some weakness as well. Patient mainly gets around on a walker at her baseline however today patient has the inability ambulate and she is unable to maintain her own weight. Daughter denies any history of falls or trauma, peripheral vascular disease, fevers, shortness of breath, chest pain, abdominal pain, dysuria or incontinence, diarrhea, bloody stools. Apparently there is no red flags at this time. 06/23/2020 No acute events overnight. Patient seen and examined bedside. Patient is in good spirits. No changes in her neuro exam at this time. Patient's chart, labs, images were reviewed and discussed with RN 06/24/2020 Patient evaluated with daughter at bedside. Patient still with pain but con trolled with medication. Will need results of MRI before I am able to discuss with patient and family about how to proceed. Discussed with RN. 06/25/2020 Patient evaluated with daughter at bedside. Discussed with consulting physicians that patient does not good candidate for surgical intervention or kyphoplasty. Discussed with Dr. Esparza about managing patient conservatively with injections and abdominal binder.. Patient and daughter are in agreement. 06/26/2020 Patient evaluated with son at bedside. It appears to be some discrepancies on how to proceed. Family and patient would like to regain as much mobility as possible, but uncertain how this could be achieved with conservative management alone. Patient states her pain is currently tolerable 06/27/2020 Patient evaluated with son and daughter at bedside. She is status post kyphoplasty, and denies significant pain. She was able to work with physical therapy today. Discussed further physical therapy and possible discharge to skilled rehab soon.. Vitals/I&O Vitals/I&O: Vital Signs Date Time Temp Pulse Resp B/P (MAP) Pulse Ox O2 Delivery O2 Flow Rate FiO2 06/27/20 16:04 94 Room Air 06/27/20 15:00 76 18 115/54 (74) 06/27/20 15:00 97.7 97.7 06/27/20 11:12 2.0 I & O 06/26/20 06/26/20 06/27/20 15:00 23:00 07:00 Intake Total 300 ml 200 ml 0 ml Balance 300 ml 200 ml 0 ml Physical Exam Physical Exam: GEN: No apparent distress. Alert and oriented HEENT: Normal cephalic, atraumatic, external auditory canals are patent NECK: Supple, no JVD, no thyromegaly was noted LUNGS: Bilateral crackles HEART: RRR, S1, S2 present. Peripheral pulses intact, no obvious murmurs noted ABDOMEN: Soft, nontender. Positive bowel sounds, no organomegaly, normal bowel sounds EXTREMITIES: Without clubbing, cyanosis, or edema. Pedal pulses intact. Negative Homans sign General: Alert, Cooperative Heart: Regular rate, Normal S1, Normal S2 Lungs: Clear, Other Abdomen: No tenderness Extremities: No clubbing, No cyanosis Skin: No rashes Review of Systems Review of Systems: Back pain, denies shortness of breath, denies chest pain, denies fever. Assessment and Plan Assessmemt and Plan Problems Medical Problems: (1) Compression fracture of T11 vertebra Status: Acute (2) Intractable pain Status: Acute Comment Review of Relevant I have reviewed the following items rachel (where applicable) has been applied. Medications: Current Medications Medications (Trade) Dose Ordered Sig/Fam Route PRN Reason Start Time Stop Time Status Last Admin Dose Admin Lidocaine HCl (Buffered Lidocaine 1%) 3 ml 1X ONCE IJ 06/27/20 10:15 06/27/20 10:19 DC 06/27/20 10:37 Midazolam HCl (Versed) 2 mg 1X ONCE IV 06/27/20 10:15 06/27/20 10:19 DC 06/27/20 10:33 Fentanyl Citrate (Fentanyl 2ml Vial) 100 mcg 1X ONCE IV 06/27/20 10:15 06/27/20 10:19 DC 06/27/20 10:33 Vancomycin HCl 250 ml @ 250 mls/hr 1X ONCE IV 06/27/20 10:45 06/27/20 11:44 DC 06/27/20 10:35 Justifications for Admission Other Justification DALLIN MCDANIELS MD Jun 27, 2020 16:41
[2020-06-27] MEDS: ENOXAPARIN 30 MG/0.3 ML SYRINGE. SQ SCH (21:19)
[2020-06-28 03:07] VITALS: BP 154/60
[2020-06-28] MEDS: HYDROcodone/APAP 5/325MG 1 TAB TABLET PO PRN (04:26)
[2020-06-28] MEDS: LEVOTHYROXINE 25 MCG TABLET. PO SCH (06:06)
[2020-06-28 07:00] VITALS: BP 150/65
[2020-06-28] MEDS: DOCUSATE SODIUM 100 MG CAPSULE. PO SCH (08:47)
[2020-06-28] MEDS: SENNOSIDES 8.6 MG TABLET PO SCH (08:47)
[2020-06-28] MEDS: DICLOFENAC SODIUM 1% TOPICAL GEL 100GM TUBE. TP SCH (08:48)
[2020-06-28] MEDS: GABAPENTIN 100 MG CAPSULE. PO SCH ×2 (08:48→14:23)
--- NOTE | 2020-06-28 09:31 | NUR ---
SW following. Discussed with RN and Dr. Morataya - plans for pt to discharge to [facility] today, SW awaiting discharge paperwork. Addendum: 06/28/20 at 1140 by TESSY JOHN SW Pt discharging to [facility] via [facility] at [phone]. RN and family notified. Pt choice of vendor form completed.
--- NOTE | 2020-06-28 10:27 | PDOC ---
[facility] PROGRESS NOTE Date of Service DOS: DATE: 06/28/20 TIME: 10:26 Chief Complaint Chief Complaint Acute generalized weakness with back pain- Increased T11 compression fracture with linear lucencies, may represent acute on chronic fracture. Advanced multilevel lumbar spondylosis with leftward curvature most prominent L4-L5. L4-L5 moderate to severe canal narrowing. Neuroforaminal narrowing most prominent right L3-L4, left L4-L5 and left L5-S1. Hypothyroidism Osteoporosis Frailty High risk for falls Admit to medicine for further management Will start her levothyroxine at a lower dose due to low TSH Serial neuro checks Pending neurology evaluation Pending MRI Med reconciliation Fall precautions PT OT SCD for DVT prophylaxis Regular diet Full code Discussed with RN and SW Disposition pending neuro evaluation Surrogate decision maker is daughter History of Present Illness History of Present Illness 89-year-old female with past medical history of hypothyroidism and osteoporosis who presents with complaint of lower extremity pain and back pain. Most of the history is obtained from the daughter who states that she has been dealing with constipation for the past couple weeks and she was seen by her PCP and she was given bowel regimens. However after treatments patient still continued to complain of back pain and she also developed some weakness as well. Patient mainly gets around on a walker at her baseline however today patient has the inability ambulate and she is unable to maintain her own weight. Daughter denies any history of falls or trauma, peripheral vascular disease, fevers, shortness of breath, chest pain, abdominal pain, dysuria or incontinence, diarrhea, bloody stools. Apparently there is no red flags at this time. 06/23/2020 No acute events overnight. Patient seen and examined bedside. Patient is in good spirits. No changes in her neuro exam at this time. Patient's chart, labs, images were reviewed and discussed with RN 06/24/2020 Patient evaluated with daughter at bedside. Patient still with pain but con trolled with medication. Will need results of MRI before I am able to discuss with patient and family about how to proceed. Discussed with RN. 06/25/2020 Patient evaluated with daughter at bedside. Discussed with consulting physicians that patient does not good candidate for surgical intervention or kyphoplasty. Discussed with Dr. Esparza about managing patient conservatively with injections and abdominal binder.. Patient and daughter are in agreement. 06/26/2020 Patient evaluated with son at bedside. It appears to be some discrepancies on how to proceed. Family and patient would like to regain as much mobility as possible, but uncertain how this could be achieved with conservative management alone. Patient states her pain is currently tolerable 06/27/2020 Patient evaluated with son and daughter at bedside. She is status post kyphoplasty, and denies significant pain. She was able to work with physical therapy today. Discussed further physical therapy and possible discharge to skilled rehab soon. 06/28/2020 Patient evaluated with daughter at bedside. Patient states the pain is improved, well controlled. She is stable for discharge to skilled rehab today. Vitals/I&O Vitals/I&O: Vital Signs Date Time Temp Pulse Resp B/P (MAP) Pulse Ox O2 Delivery O2 Flow Rate FiO2 06/28/20 07:00 97.8 76 18 150/65 (93) 93 Room Air 97.8 06/27/20 11:12 2.0 I & O 06/27/20 06/27/20 06/28/20 15:00 23:00 07:00 Intake Total 200 ml 230 ml 120 ml Balance 200 ml 230 ml 120 ml Physical Exam Physical Exam: GEN: No apparent distress. Alert and oriented HEENT: Normal cephalic, atraumatic, external auditory canals are patent NECK: Supple, no JVD, no thyromegaly was noted LUNGS: Bilateral crackles HEART: RRR, S1, S2 present. Peripheral pulses intact, no obvious murmurs noted ABDOMEN: Soft, nontender. Positive bowel sounds, no organomegaly, normal bowel sounds EXTREMITIES: Without clubbing, cyanosis, or edema. Pedal pulses intact. Negative Homans sign General: Alert, Cooperative Heart: Regular rate, Normal S1, Normal S2 Lungs: Clear, Other Abdomen: No tenderness Extremities: No clubbing, No cyanosis Skin: No rashes Review of Systems Review of Systems: Low back pain. Denies fever, denies chest pain, denies shortness of breath Assessment and Plan Assessmemt and Plan Problems Medical Problems: (1) Compression fracture of T11 vertebra Status: Acute (2) Intractable pain Status: Acute Comment Review of Relevant I have reviewed the following items rachel (where applicable) has been applied. Medications: Current Medications Medications (Trade) Dose Ordered Sig/Fam Route PRN Reason Start Time Stop Time Status Last Admin Dose Admin Vancomycin HCl 250 ml @ 250 mls/hr 1X ONCE IV 06/27/20 10:45 06/27/20 11:44 DC 06/27/20 10:35 Justifications for Admission Other Justification DALLIN MCDANIELS MD Jun 28, 2020 10:27
[2020-06-28] MEDS ORDERED: HYDR-2761 PO (10:35)
--- NOTE | 2020-06-28 10:37 | SNU/HH DC ---
DISCHARGE ORDERS DISCHARGE INFORMATION: DISCHARGE DATE: Jun 28, 2020 FINAL DIAGNOSIS Problems Medical Problems: (1) Compression fracture of T11 vertebra Status: Acute (2) Intractable pain Status: Acute CONDITION ON DISCHARGE: Stable CODE STATUS: Code Status: Full DETENTION: SNF STAY <30 DAYS: Yes HOSPICE: HOSPICE: No HOSPICE EVAL & TREAT: No POST DISCHARGE ORDERS: ACTIVITY ORDERS: No restrictions, Activity as tolerated WEIGHT BEARING STATUS: No restrictions, As tolerated DIET AFTER DISCHARGE: Cardiac CHECKS AFTER DISCHARGE: COMMENTS: back (T11) TREATMENT/EQUIPMENT ORDERS: Physical Therapy For: Evalulation/Treatment Occupational Therapy For: Evaluation/Treatment Speech Language Pathology For: Evaluation/Treatment DISCHARGE MEDICATIONS: Home Meds Active Scripts Hydrocodone Bit/Acetaminophen (HYDROCODONE-APAP 5-325 ) 1 Tab Tablet, 1 TAB PO PRN Q4HRS PRN for PAIN for 7 Days, TAB Prov:DALLIN MCDANIELS MD 06/28/20 Reported Medications Acetaminophen (TYLENOL) 325 Mg Tablet, 2 TAB PO BIDACBL, #30 TAB 01/19/18 Calcium Carbonate/Vitamin D3 (OYSTER SHELL CALCIUM +D TABLET) 1 Each Tablet, 1 EACH PO BID 06/01/14 Levothyroxine Sodium (SYNTHROID) 75 Mcg Tablet, 1 TAB PO DAILY, #30 TAB 5 Refills 06/01/14 DALLIN MCDANIELS MD Jun 28, 2020 10:37
--- NOTE | 2020-06-28 10:43 | PDOC3 ---
Discharge Summary Visit Information Date of Admission: Jun 22, 2020 Date of Discharge: Jun 28, 2020 Final Diagnosis Problems Medical Problems: (1) Compression fracture of T11 vertebra Status: Acute (2) Intractable pain Status: Acute Brief Hospital Course Allergies Allergies Coded Allergies Type Severity Reaction Last Updated Verified Iodinated Contrast Media Allergy Intermediate 06/01/14 Yes Penicillins Allergy Intermediate 06/01/14 Yes codeine Allergy Intermediate 06/01/14 Yes iodine Allergy Intermediate 06/01/14 Yes Vital Signs Vital Signs Date Time Temp Pulse Resp B/P (MAP) Pulse Ox O2 Delivery O2 Flow Rate FiO2 06/28/20 07:00 97.8 76 18 150/65 (93) 93 Room Air 97.8 06/27/20 11:12 2.0 Brief Hospital Course Ms. Raymond is a 89 old female who presented with compression fracture of T11 vertebra. She underwent fluoroscopically guided vertebroplasty to T11 vertebrae. She was dissipated in physical therapy, and [facility]. Discharge Information Condition at Discharge: Stable Disposition/Orders: D/C to Another Facility Scheduled Acetaminophen (Tylenol) 325 Mg Tablet, 2 TAB PO BIDACBL, #30 (Reported) Entered as Reported by: Zoraida Biswas on 01/19/18 0202 Last Action: Reviewed on 06/22/201447 by ALESSIA GOINS RN Calcium Carbonate/Vitamin D3 (Oyster Shell Calcium +D Tablet) 1 Each Tablet, 1 EACH PO BID, (Reported) Entered as Reported by: ELANA ROGERS on 06/01/14813 Last Action: Reviewed on 06/22/201447 by ALESSIA GOINS RN Levothyroxine Sodium (Synthroid) 75 Mcg Tablet, 1 TAB PO DAILY, #30 Ref 5 (Reported) Entered as Reported by: ELANA ROGERS on 06/01/14813 Last Action: Reviewed on 06/22/201447 by ALESSIA GOINS RN Scheduled PRN Hydrocodone Bit/Acetaminophen (Hydrocodone-Apap 5-325 ) 1 Tab Tablet, 1 TAB PO PRN Q4HRS PRN for PAIN for 7 Days Prescribed by: DALLIN MCDANIELS MD on 06/28/20 1035 Justicifation of Admission Dx: Justifications for Admission: Justification of Admission Dx: Yes DALLIN MCDANIELS MD Jun 28, 2020 10:43
[2020-06-28 11:00] VITALS: BP 122/49
[2020-06-28] MEDS ORDERED: ACETAMINOPHEN 500 MG TABLET PO PRN (12:45)
--- NOTE | 2020-06-28 13:50 | PDOC ---
PROGRESS NOTES Date of Service DATE: 06/28/20 TIME: 13:47 Subjective Subjective She continues with back pain but less and she did walk for 40' today with physical therapy. Objective Objective Vital Signs Date Time Temp Pulse Resp B/P (MAP) Pulse Ox O2 Delivery O2 Flow Rate FiO2 06/28/20 11:00 97.7 74 18 122/49 (73) 94 Room Air 97.7 06/27/20 11:12 2.0 Intake and Output 06/28/20 07:00 Intake Total 550 ml Balance 550 ml Intake Oral 550 ml # Voids 5 Physical Exam Physical Exam She is sitting up in bedside recliner and seems comfortable and no change noted with her neurological examination. Assessment Assessment Problems Medical Problems: (1) Compression fracture of T11 vertebra Status: Acute (2) Intractable pain Status: Acute Plan Plan of Care Agree with plans for SNF transfer. Comment Review of Relevant I have reviewed the following items rachel (where applicable) has been applied. Medications Current Medications Acetaminophen/ Hydrocodone Bitart (Lortab 5/325) 1 tab 1X ONCE PO Last administered on 06/22/20at 00:12; Start 06/21/20 at 23:45; Stop 06/21/20 at 23:46; Status DC Lidocaine (Lidoderm) 1 patch 1X ONCE TD Last administered on 06/22/20at 00:12; Start 06/21/20 at 23:45; Stop 06/21/20 at 23:46; Status DC Ondansetron HCl (Zofran) 4 mg PRN Q8HRS PRN IV NAUSEA/VOMITING 1ST CHOICE; Start 06/21/20 at 23:45; Stop 06/22/20 at 23:44; Status DC Acetaminophen (Tylenol) 650 mg PRN Q4HRS PRN PO FEVER > 100.3'F Last admin istered on 06/22/20at 09:40; Start 06/21/20 at 23:45; Stop 06/22/20 at 23:44; Status DC Acetaminophen/ Hydrocodone Bitart (Lortab 5/325) 1 tab PRN Q4HRS PRN PO PAIN Last administered on 06/28/20at 04:26; Start 06/22/20 at 10:30 Gabapentin (Neurontin) 100 mg TID PO Last administered on 06/28/20at 08:48; Start 06/22/20 at 21:00 Gabapentin (Neurontin) 100 mg ONCE ONCE PO Last administered on 06/22/20at 15:00; Start 06/22/20 at 15:00; Stop 06/22/20 at 15:01; Status DC Docusate Sodium (Colace) 100 mg BID PO Last administered on 06/28/20at 08:47; Start 06/23/20 at 12:00 Sennosides (Senna) 8.6 mg BID PO Last administered on 06/28/20at 08:47; Start 06/23/20 at 12:00 Levothyroxine Sodium (Synthroid) 25 mcg DAILY06 PO Last administered on 06/28/20at 06:06; Start 06/23/20 at 18:30 Methylprednisolone Acetate (DEPO-Medrol 40MG VIAL) 40 mg 1X ONCE IM ; Start 06/25/20 at 13:30; Stop 06/25/20 at 13:31; Status DC Methylprednisolone Acetate (DEPO-Medrol 40MG VIAL) 40 mg 1X ONCE INJ Last administered on 06/25/20at 13:30; Start 06/25/20 at 13:30; Stop 06/25/20 at 13:31; Status DC Bupivacaine HCl (Sensorcaine-Mpf 0.25%) 10 ml 1X ONCE IJ Last administered on 06/25/20at 13:30; Start 06/25/20 at 13:30; Stop 06/25/20 at 13:31; Status DC Diclofenac Sodium (Voltaren) 1 nori BID TP Last administered on 06/28/20at 08:48; Start 06/25/20 at 21:00 Enoxaparin Sodium (Lovenox 30mg Syringe) 30 mg Q24H SQ Last administered on at 21:19; Start 06/25/20 at 21:00 Lidocaine HCl (Buffered Lidocaine 1%) 3 ml STK-MED ONCE .ROUTE ; Start 06/27/20 at 09:51; Stop 06/27/20 at 09:51; Status DC Iohexol (Omnipaque 240 Mg/ml) 50 ml STK-MED ONCE .ROUTE ; Start 06/27/20 at 09:51; Stop 06/27/20 at 09:51; Status DC Vancomycin HCl 250 ml @ As Directed STK-MED ONCE .ROUTE ; Start 06/27/20 at 09:55; Stop 06/27/20 at 09:55; Status DC Midazolam HCl (Versed) 2 mg STK-MED ONCE .ROUTE ; Start 06/27/20 at 09:55; Stop 06/27/20 at 09:55; Status DC Fentanyl Citrate (Fentanyl 2ml Vial) 100 mcg STK-MED ONCE .ROUTE ; Start 06/27/20 at 09:55; Stop 06/27/20 at 09:56; Status DC Gadoterate Meglumine (Dotarem) 10 ml STK-MED ONCE .ROUTE ; Start 06/27/20 at 09:58; Stop 06/27/20 at 09:58; Status DC Lidocaine HCl (Buffered Lidocaine 1%) 3 ml 1X ONCE IJ Last administered on 06/27/20at 10:37; Start 06/27/20 at 10:15; Stop 06/27/20 at 10:19; Status DC Midazolam HCl (Versed) 2 mg 1X ONCE IV Last administered on 06/27/20at 10:33; Start 06/27/20 at 10:15; Stop 06/27/20 at 10:19; Status DC Fentanyl Citrate (Fentanyl 2ml Vial) 100 mcg 1X ONCE IV Last administered on 06/27/20at 10:33; Start 06/27/20 at 10:15; Stop 06/27/20 at 10:19; Status DC Gadoterate Meglumine (Dotarem) 8 ml 1X ONCE IVP ; Start 06/27/20 at 10:15; Stop 06/27/20 at 10:19; Status DC Vancomycin HCl 250 ml @ 250 mls/hr 1X ONCE IV Last administered on 06/27/20at 10:35; Start 06/27/20 at 10:45; Stop 06/27/20 at 11:44; Status DC Acetaminophen (Tylenol) 500 mg PRN Q6HRS PRN PO MILD PAIN / TEMP > 100.3'F; Start 06/28/20 at 12:45 Active Scripts Active Hydrocodone-Apap 5-325 (Hydrocodone Bit/Acetaminophen) 1 Tab Tablet 1 Tab PO PRN Q4HRS PRN 7 Days Reported Tylenol (Acetaminophen) 325 Mg Tablet 2 Tab PO BIDACBL Oyster Shell Calcium +D Tablet (Calcium Carbonate/Vitamin D3) 1 Each Tablet 1 Each PO BID Synthroid (Levothyroxine Sodium) 75 Mcg Tablet 1 Tab PO DAILY Vitals/I & O Vital Sign - Last 24 Hours 06/27/20 06/27/20 06/27/20 06/27/20 14:00 15:00 15:00 15:19 Temp 97.7 97.7 Pulse 71 76 Resp 18 18 B/P (MAP) 129/41 (70) 115/54 (74) Pulse Ox 98 94 94 O2 Delivery Room Air Room Air Room Air 06/27/20 06/27/20 06/27/20 06/27/20 16:04 19:20 20:00 23:33 Temp 98.1 98.0 98.1 98.0 Pulse 80 87 Resp 20 18 B/P (MAP) 128/49 (75) 153/84 (107) Pulse Ox 94 94 95 O2 Delivery Room Air Room Air Room Air Room Air 06/28/20 06/28/20 06/28/20 06/28/20 03:07 04:26 06:06 07:00 Temp 98.1 97.8 98.1 97.8 Pulse 79 76 Resp 20 18 B/P (MAP) 154/60 (91) 150/65 (93) Pulse Ox 94 93 O2 Delivery Room Air Room Air Room Air Room Air 06/28/20 06/28/20 08:50 11:00 Temp 97.7 97.7 Pulse 74 Resp 18 B/P (MAP) 122/49 (73) Pulse Ox 94 O2 Delivery Room Air Room Air Intake and Output 06/27/20 06/27/20 06/28/20 15:00 23:00 07:00 Intake Total 200 ml 230 ml 120 ml Balance 200 ml 230 ml 120 ml Justifications for Admission Other Justification ROBIN OLSON MD Jun 28, 2020 13:49
--- NOTE | 2020-06-28 14:20 | NUR ---
Spoke with MAXWELL Church from [facility] discussing pt current admit. Discussed medications/instructions with Lynnette. Explained pt/pt daughter would like Tylenol for pain rather then Lortab. Lortab if pain is uncontrolled by Tylenol. Lynnette voiced understanding accepting pt to facility.
--- NOTE | 2020-06-28 15:00 | NUR ---
IV removed without complications. Pt wheeled off unit accompanied by transportation without complications.
== END 2020-06-28 15:00 | DRG 516 ==
LOC: ER 19:45 → 4 NORTH 06-22 00:45 → ED HOLD 06-22 01:05 → 6 SOUTH 06-22 16:15 → 4 NORTH 06-23 17:00
PROVIDERS: ADMIT Family Medicine; ATTEND Family Medicine
PROC: 3E0U33Z Introduction of Anti-inflammatory into Joints, Percutaneous Approach (ICD-10-PCS; 2020-06-22)
PROC: 3E0U3BZ Introduction of Anesthetic Agent into Joints, Percutaneous Approach (ICD-10-PCS; 2020-06-22)
PROC: 0PU43JZ Supplement Thoracic Vertebra with Synthetic Substitute, Percutaneous Approach (ICD-10-PCS; principal; 2020-06-27)
DX: S22.080A Wedge compression fracture of T11-T12 vertebra, initial encounter for closed fracture (principal); Z68.1 Body mass index [BMI] 19.9 or less, adult; M81.0 Age-related osteoporosis without current pathological fracture; E03.9 Hypothyroidism, unspecified; H91.90 Unspecified hearing loss, unspecified ear; K59.00 Constipation, unspecified; M16.0 Bilateral primary osteoarthritis of hip; M19.011 Primary osteoarthritis, right shoulder; M19.012 Primary osteoarthritis, left shoulder; M47.26 Other spondylosis with radiculopathy, lumbar region; Z79.890 Hormone replacement therapy; Z85.828 Personal history of other malignant neoplasm of skin; Z91.81 History of falling; M19.90 Unspecified osteoarthritis, unspecified site; Z79.899 Other long term (current) drug therapy; Z20.828 Contact with and (suspected) exposure to other viral communicable diseases; R63.4 Abnormal weight loss
CPT/HCPCS: 22513; 36415; 72131; 72148; 72170; 72192; 80048; 83735; 84100; 84443; 85025; 85610; 85730; 87426; 93971; 99152; 99153; 99285; C1713; J1030; J1650; J2250; J3010; J3370; J3490; 97110-GP; 97116-GP; 97530-GP; 97535-GO; G0378; U0003-CS

== ENCOUNTER → 2021-01-20 | Outpatient (CLI) | payer MEDICARE ==
[2020-08-09 11:00] VITALS: BP 148/60
[~2021-01-20] MED LIST changes: +GABA-585 PO; +HYDR-2761 PO
--- NOTE | 2021-01-20 16:41 | KCIC ---
EXAMINATION: Magnetic resonance imaging (MRI) of the lumbar spine without contrast 01/20/2021 2:05 PM HISTORY: Low back pain TECHNIQUE: Multiplanar multi-weighted MRI of the lumbar spine was performed without intravenous contr ast using the standard lumbar spine protocol. Contrast information: None administered. COMPARISON: MRI lumbar spine 08/06/2020 FINDINGS: There is a treated compression deformity at T11 with near vertebral plana and retropulsion, only part ially profiled. Findings appear to result in mild spinal canal stenosis at this level although distor tion of the image is noted secondary to limitations of the [id number]. There is a treated compress ion deformity at L2. There is no new marrow edema to suggest an acute compression fracture. Vertebral bodies are otherwise normal in height. There is reverse S-shaped curvature of the thoracolumbar spin e. There is minimal retrolisthesis of L1 on L2, L2 on L3 and L3 on L4. Grade 1 anterolisthesis of L4 on L5 measuring 3 mm. It 1 anterolisthesis of L5 on S1 measuring 5 mm. Conus medullaris terminates at L1-L2. Distal spinal cord signal intensity is normal sequences. Abdominal aorta is normal in caliber , tortuous. Kidneys are normal in appearance. Cholelithiasis. Visualized portions of the sacrum appea r intact. T10-T11: There is a circumferential disc bulge with retropulsion superior endplate of T11 resulting i n mild spinal canal stenosis. No deformity of the conus medullaris. T11-T12: Disc is normal in configuration. Mild facet arthropathy. No neuroforaminal or spinal canal s tenosis. T12-L1: Mild disc bulge with central disc protrusion. Mild facet arthropathy. Mild left neural forami nal stenosis. Mild spinal canal stenosis. L1-L2: There is a circumferential disc bulge asymmetric to the left with left central disc extrusion. Mild to moderate facet arthropathy. Moderate to severe right and moderate left neuroforaminal stenos is. This mild bilateral lateral recess stenosis. There is moderate spinal canal stenosis. Findings ar e similar to the prior examination. L2-L3: There is a circumferential disc bulge. There is disc desiccation with moderate disc height los s. Mild to moderate facet arthropathy. Moderate to severe right and moderate left neuroforaminal sten osis. Mild to moderate spinal canal stenosis. Findings are similar to prior examination. Right latera l recess stenosis is again noted. L3-L4: There is a circumferential disc bulge. Moderate facet arthropathy. Severe bilateral neuroforam inal stenosis, right greater than left. Moderate spinal canal stenosis which is not significantly bishop nged. L4-L5: Circumferential disc bulge with uncovering of the disc secondary to anterolisthesis. Central d isc extrusion. There is ligamentum flavum infolding with severe facet arthropathy. Severe spinal bryon l stenosis. Severe bilateral neuroforaminal stenosis. Findings are unchanged. L5-S1: There is a circumferential disc bulge asymmetric to the right. Severe facet arthropathy. Sever e right and moderate left neuroforaminal stenosis. Mild spinal canal stenosis which is no significant change. IMPRESSION: No acute compression fracture is identified. Treated compression deformities are identified at T11 and L2. Advanced degenerative changes of lumbar spine are present as described in detail above. These finding s are not significantly changed since 08/06/2020 MRI lumbar spine. Electronically signed by: Shayy Williamson MD (01/20/2021 4:39 PM) [id number]
== END ==
LOC: KCIC MRI 13:49
PROVIDERS: ATTEND Nurse Practitioner
DX: M47.815 Spondylosis without myelopathy or radiculopathy, thoracolumbar region (principal); M48.05 Spinal stenosis, thoracolumbar region; M48.07 Spinal stenosis, lumbosacral region; K80.20 Calculus of gallbladder without cholecystitis without obstruction
CPT/HCPCS: 72148

== ENCOUNTER 2021-07-11 09:18 | Emergency (ER) | payer MEDICARE ==
[~2021-07-11] VITALS: Ht 142.2 cm; Wt 35.4 kg
--- NOTE | 2021-07-11 09:43 | PHYS DOC ---
Past Medical History Past Medical History: Hypothyroid, Other Additional Past Medical Histor: osteoporosis, basal cell carcinoma, chronic pain Past Surgical History: Cancer Surgery, , Other Additional Past Surgical Histo: skin cancer removal, fluid drainage from ear, spinal fusion Smoking Status: Never Smoker Alcohol Use: None Drug Use: None General Adult EDM: Chief Complaint: SHORTNESS OF BREATH HPI: HPI: 89-year-old female who lives alone presents the emergency department complaining of right-sided rib area pain, shortness of breath, abdominal pain for the last 24 hours. Her daughter who routinely checks on her, reports that the patient complained of shortness of breath earlier today along with right-sided pain. The patient denies any trauma, falls and the daughter has not witnessed any falls either. The patient further admits to some abdominal pain diffusely in her abdomen that is not associate with any nausea vomiting or diarrhea. She has been vaccinated for coronavirus and denies any acute close contacts with Covid.. the patient denies nausea, vomiting, fever, chills, urinary symptoms, cough, recent trauma, or any other complaints. Review of Systems: Review of Systems: ROS otherwise negative except for what was mentioned in HPI Heart Score: C/O Chest Pain: Yes HEART Score for Chest Pain: HEART Score for Chest Pain Response (Comments) Value History Slighlty/Non-Suspicious 0 ECG Normal 0 Age > 65 2 Risk Factors 1 or 2 Risk Factors 1 Troponin < Normal Limit 0 Total 3 Allergies: Allergies: Allergies Coded Allergies Type Severity Reaction Last Updated Verified Iodinated Contrast Media Allergy Intermediate hives 07/11/21 Yes iodine Allergy Intermediate rash 07/11/21 Yes Penicillins Allergy Unknown 07/11/21 Yes codeine Adverse Reaction Intermediate n/v 07/11/21 Yes Physical Exam: PE: Constitutional: No acute distress, non-toxic appearance. HENT: Atraumatic, bilateral external ears normal, nose normal. Patient is extremely hard of hearing. Eyes: Conjunctiva normal, no discharge. Neck: Normal range of motion, supple, no stridor. Cardiovascular: Heart rate regular rhythm. 2+ radial pulses and equal Lungs & Thorax: No respiratory distress, symmetrical expansion. Bilateral breath sounds clear to auscultation Chest wall: Chest wall tenderness to the right-sided rib cage approximately ribs 5 through 10 on the right. Abdomen: Soft, diffuse mild tenderness Skin: Warm, dry. No rash. Extremities: No tenderness, no cyanosis, ROM intact, no edema. There is no tenderness over the right shoulder, no deformity, no tenderness over the right arm, right forearm, right hand or wrist Neurologic: Alert and oriented X 3, normal motor function, normal sensory function, no focal deficits noted. GCS 15. Psychologic: Affect normal, judgment normal, mood normal. Current Patient Data: Labs: Laboratory Tests Test 07/11/21 10:07 07/11/21 10:33 07/11/21 10:40 07/11/21 12:10 SARS-CoV-2 Antigen (Rapid) Negative (NEGATIVE) Sodium Level 135 mmol/L (136-145) Potassium Level 4.1 mmol/L (3.5-5.1) Chloride Level 101 mmol/L (98-107) Carbon Dioxide Level 25 mmol/L (21-32) Anion Gap 9 (6-14) Blood Urea Nitrogen 20 mg/dL (7-20) Creatinine 0.8 mg/dL (0.6-1.0) Estimated GFR (Cockcroft-Gault) 67.5 BUN/Creatinine Ratio 25 (6-20) Glucose Level 90 mg/dL (70-99) Calcium Level 9.4 mg/dL (8.5-10.1) Total Bilirubin 0.3 mg/dL (0.2-1.0) Aspartate Amino Transf (AST/SGOT) 24 U/L (15-37) Alanine Aminotransferase (ALT/SGPT) 18 U/L (14-59) Alkaline Phosphatase 60 U/L (46-116) Troponin I Quantitative < 0.017 ng/mL (0.000-0.055) < 0.017 ng/mL (0.000-0.055) MC-Fuw-H-Type Natriuretic Peptide 1337 pg/mL (0-449) Total Protein 7.3 g/dL (6.4-8.2) Albumin 3.6 g/dL (3.4-5.0) Albumin/Globulin Ratio 1.0 (1.0-1.7) Lipase 48 U/L (73-393) Urine Collection Type U cath Urine Color Yellow Urine Clarity Clear Urine pH 7.0 (<5.0-8.0) Urine Specific Chestnut 1.015 (1.000-1.030) Urine Protein Negative mg/dL (NEG-TRACE) Urine Glucose (UA) Negative mg/dL (NEG) Urine Ketones (Stick) Negative mg/dL (NEG) Urine Blood Negative (NEG) Urine Nitrite Negative (NEG) Urine Bilirubin Negative (NEG) Urine Urobilinogen Dipstick 0.2 mg/dL (0.2 mg/dL) Urine Leukocyte Esterase Negative (NEG) Urine RBC 0 /HPF (0-2) Urine WBC 0 /HPF (0-4) Urine Amorphous Sediment Present /HPF Urine Bacteria 0 /HPF (0-FEW) White Blood Count 8.0 x10^3/uL (4.0-11.0) Red Blood Count 3.36 x10^6/uL (3.50-5.40) Hemoglobin 10.7 g/dL (12.0-15.5) Hematocrit 32.0 % (36.0-47.0) Mean Corpuscular Volume 95 fL (79-100) Mean Corpuscular Hemoglobin 32 pg (25-35) Mean Corpuscular Hemoglobin Concent 33 g/dL (31-37) Red Cell Distribution Width 12.8 % (11.5-14.5) Platelet Count 294 x10^3/uL (140-400) Neutrophils (%) (Auto) 75 % (31-73) Lymphocytes (%) (Auto) 16 % (24-48) Monocytes (%) (Auto) 6 % (0-9) Eosinophils (%) (Auto) 2 % (0-3) Basophils (%) (Auto) 1 % (0-3) Neutrophils # (Auto) 6.0 x10^3/uL (1.8-7.7) Lymphocytes # (Auto) 1.3 x10^3/uL (1.0-4.8) Monocytes # (Auto) 0.5 x10^3/uL (0.0-1.1) Eosinophils # (Auto) 0.1 x10^3/uL (0.0-0.7) Basophils # (Auto) 0.0 x10^3/uL (0.0-0.2) Vital Signs: Vital Signs Date Time Temp Pulse Resp B/P (MAP) Pulse Ox O2 Delivery O2 Flow Rate FiO2 07/11/21 09:31 76 28 98 Room Air EKG: EKG: Normal sinus rhythm rate of 76, no ST-T wave changes, no ectopic beats, normal SD, QRS, and QTc intervals. Impression: Normal EKG. interpreted by me, Emile Francisco D.O. Radiology/Procedures: Radiology/Procedures: PROCEDURE: CT ABDOMEN PELVIS WO CONTRAST EXAMINATION: CT abdomen and pelvis without IV contrast. INDICATION:89 years, Female, abdominal tenderness throughout. TECHNIQUE: Axial CT images of the abdomen and pelvis were obtained. Coronal and sagittal reformatted performed. COMPARISON: 01/10/2020. Exposure: One or more of the following individualized dose reduction techniques were utilized for this examination: 1. Automated exposure control 2. Adjustment of the mA and/or kV according to patient size 3. Use of iterative reconstruction technique. FINDINGS: LOWER CHEST: Chronic subpleural reticulations in bibasilar lungs. Severe coronary artery atherosclerotic calcifications. ABDOMEN/PELVIS: Within the limitation of noncontrast exam, Liver and spleen are unremarkable. Gallbladder hydrops. No calcified cholelithiasis, wall thickening or pericholecystic fat stranding to suggest acute inflammation. No biliary ductal dilatation. Moderate to severe atrophic pancreatic parenchyma. No adrenal nodule. No hydronephrosis or nephrolithiasis in either kidney. Extensive colonic diverticulosis without acute diverticulitis. Appendix is not visualized. No bowel dilatation. Moderate amount of stool throughout the colon. Moderate aortoiliac atherosclerotic calcifications without dilatation. No pneumoperitoneum or ascites. No abdominal lymphadenopathy by size criteria. Unremarkable urinary bladder. Coarse calcifications in the uterus. MUSCULOSKELETAL: Severe compression fracture of the T11 vertebral body with kyphoplasty changes. Kyphoplasty changes seen at L2 vertebral body. Mild to moderate levoconvex scoliosis of lumbar spine with severe multilevel degenerative changes. Chronic fracture in the right fifth, sixth and seventh ribs. Punctate calcifications in bilateral breasts. IMPRESSION: 1. No acute abnormality in the abdomen or pelvis, within limitation of noncontrast exam. 2. Extensive colonic diverticulosis without acute diverticulitis. 3. Moderate amount of stool throughout the colon. Electronically signed by: Orestes Chow MD (07/11/2021 11:19 AM) XR CHEST 1V History: Right chest pain. Comparison: CT chest 01/11/2020 Technique: Portable AP radiograph of the chest. Findings: The lungs are hyperinflated. Interstitial lung markings at the right greater than left lung base likely chronic. No pleural effusion or pneumothorax. No new airspace consolidation. Calcified granuloma left upper lobe. Heart size is normal. Heavy mitral annular calcification. Pulmonary vasculature is within normal limits. Severe degenerative changes of the right shoulder. Kyphoplasty changes in the thoracic spine. Decreased osseous mineralization. Impression: 1. Senescent chest. No acute findings. Electronically signed by: Smith Fitzgerald MD (07/11/2021 10:09 AM) Course & Med Decision Making: Course & Med Decision Making Wells' Criteria for Pulmonary Embolism from [employer] on 07/11/2021 RESULT SUMMARY: 0.0 points Low risk group: 1.3% chance of PE in an ED population. Another study assigned scores ? 4 as PE Unlikely and had a 3% incidence of PE. INPUTS: Clinical signs and symptoms of DVT > 0 = No PE is #1 diagnosis OR equally likely > 0 = No Heart rate > 100 > 0 = No Immobilization at least 3 days OR surgery in the previous 4 weeks > 0 = No Previous, objectively diagnosed PE or DVT > 0 = No Hemoptysis > 0 = No Malignancy w/ treatment within 6 months or palliative > 0 = No Patient had negative musculoskeletal exam, x-ray consistent with severe degenerative joint changes of the right shoulder, patient was focally tender over the right rib cage without overt signs of trauma overlying the skin and a negative x-ray. CT scan was also unrevealing for cause of pain. Return precautions were discussed with the patient's daughter and they feel comfortable with plan for discharge to home Departure Departure Impression: Primary Impression: Arthritis of shoulder region, right Additional Impressions: Abdominal pain Right-sided chest wall pain Disposition: 01 HOME / SELF CARE / HOMELESS Condition: STABLE Referrals: LUIS CARLOS CARLIN APRN (PCP) Patient Instructions: Arthritis, Nonspecific, [id number] Additional Instructions: You were seen in the emergency department and your health condition was deemed not to require admission to the hospital. It is important to realize that we can only evaluate you during the time that you are in her department. Occasionally health conditions can worsen upon leaving the emergency department. If this were to happen, please return to and allow us the opportunity to reevaluate you. It is a pleasure to take care of your health needs. Return to the ER if your symptoms worsen, do not improve, or if you develop additional symptoms that are concerning to you EMILE FRANCISCO DO Jul 11, 2021 09:43
--- NOTE | 2021-07-11 10:12 | RAD ---
XR CHEST 1V History: Right chest pain. Comparison: CT chest 01/11/2020 Technique: Portable AP radiograph of the chest. Findings: The lungs are hyperinflated. Interstitial lung markings at the right greater than left lung base like ly chronic. No pleural effusion or pneumothorax. No new airspace consolidation. Calcified granuloma l eft upper lobe. Heart size is normal. Heavy mitral annular calcification. Pulmonary vasculature is wi thin normal limits. Severe degenerative changes of the right shoulder. Kyphoplasty changes in the tho racic spine. Decreased osseous mineralization. Impression: 1. Senescent chest. No acute findings. Electronically signed by: Smith Fitzgerald MD (07/11/2021 10:09 AM) [id number]
[2021-07-11 11:00] LABS: BILIRUBIN,URINE NEGATIVE (NEG); CLARITY,URINE CLEAR; COLOR,URINE YELLOW; NITRITE,URINE NEGATIVE (NEG); PROTEIN,URINE NEGATIVE (NEG-TRACE); UROBILINOGEN,URINE 0.2 mg/dL (0.2 mg/dL)
[2021-07-11 11:03] LABS: CALCIUM 9.4 mg/dL (8.5-10.1); CREATININE 0.8 mg/dL (0.6-1.0); GFR 67.5; POTASSIUM 4.1 mmol/L (3.5-5.1)
[2021-07-11 11:08] LABS: ALBUMIN 3.6 g/dL (3.4-5.0); TOTAL BILIRUBIN 0.3 mg/dL (0.2-1.0); TOTAL PROTEIN 7.3 g/dL (6.4-8.2)
--- NOTE | 2021-07-11 11:21 | RAD ---
EXAMINATION: CT abdomen and pelvis without IV contrast. INDICATION:89 years, Female, abdominal tenderness throughout. TECHNIQUE: Axial CT images of the abdomen and pelvis were obtained. Coronal and sagittal reformatted performed. COMPARISON: 01/10/2020. Exposure: One or more of the following individualized dose reduction techniques were utilized for thi s examination: 1. Automated exposure control 2. Adjustment of the mA and/or kV according to patient size 3. Use of iterative reconstruction technique. FINDINGS: LOWER CHEST: Chronic subpleural reticulations in bibasilar lungs. Severe coronary artery atherosclerotic calcifica tions. ABDOMEN/PELVIS: Within the limitation of noncontrast exam, Liver and spleen are unremarkable. Gallbladder hydrops. No calcified cholelithiasis, wall thickening or pericholecystic fat stranding to suggest acute inflammation. No biliary ductal dilatation. Moderat e to severe atrophic pancreatic parenchyma. No adrenal nodule. No hydronephrosis or nephrolithiasis i n either kidney. Extensive colonic diverticulosis without acute diverticulitis. Appendix is not visualized. No bowel d ilatation. Moderate amount of stool throughout the colon. Moderate aortoiliac atherosclerotic calcifi cations without dilatation. No pneumoperitoneum or ascites. No abdominal lymphadenopathy by size crit eria. Unremarkable urinary bladder. Coarse calcifications in the uterus. MUSCULOSKELETAL: Severe compression fracture of the T11 vertebral body with kyphoplasty changes. Kyphoplasty changes s een at L2 vertebral body. Mild to moderate levoconvex scoliosis of lumbar spine with severe multileve l degenerative changes. Chronic fracture in the right fifth, sixth and seventh ribs. Punctate calcifi cations in bilateral breasts. IMPRESSION: 1. No acute abnormality in the abdomen or pelvis, within limitation of noncontrast exam. 2. Extensive colonic diverticulosis without acute diverticulitis. 3. Moderate amount of stool throughout the colon. Electronically signed by: Orestes Chow MD (07/11/2021 11:19 AM) [id number]
[2021-07-11 11:28] LABS: AMORPHOUS SEDIMENT,UR PRESENT /HPF; BACTERIA,URINE 0 /HPF (0-FEW); RBC,URINE 0 /HPF (0-2); WBC,URINE 0 /HPF (0-4)
[2021-07-11 12:23] LABS: BASO % 1 % (0-3); EOS # 0.1 x10^3/uL (0.0-0.7); EOS % 2 % (0-3); HEMOGLOBIN 10.7 g/dL (12.0-15.5); LYMPH # 1.3 x10^3/uL (1.0-4.8); LYMPH % 16 % (24-48); MEAN CORPUSCULAR HEMOGLOBIN 32 pg (25-35); MEAN CORPUSCULAR HGB CONC 33 g/dL (31-37); MEAN CORPUSCULAR VOLUME 95 fL (79-100); MONO # 0.5 x10^3/uL (0.0-1.1); MONO % 6 % (0-9); NEUT % 75 % (31-73); PLATELET COUNT 294 x10^3/uL (140-400); RED BLOOD COUNT 3.36 x10^6/uL (3.50-5.40); RED CELL DISTRIBUTION WIDTH 12.8 % (11.5-14.5)
[2021-07-11 13:05] VITALS: BP 169/83
--- NOTE | 2021-07-12 12:58 | NUR ---
IP: Informed pt and daughter of negative covid test. Both verbalized understanding.
== END 2021-07-11 13:08 | disposition home or self-care (01) ==
LOC: ER 09:18
DX: M19.011 Primary osteoarthritis, right shoulder (principal); R10.84 Generalized abdominal pain; R07.89 Other chest pain; E03.9 Hypothyroidism, unspecified; G89.29 Other chronic pain; Z20.822 Contact with and (suspected) exposure to COVID-19; Z91.041 Radiographic dye allergy status; Z88.0 Allergy status to penicillin; Z88.5 Allergy status to narcotic agent; Z88.8 Allergy status to other drugs, medicaments and biological substances
CPT/HCPCS: 36415; 71045; 74176; 80053; 81001; 83690; 83880; 84484; 85025; 87426; 99285; P9612; U0003; U0005